=== PATIENT | female | born 1975 | race Caucasian/White ===

== ENCOUNTER 2020-06-02 14:57 | Outpatient (REF) | payer OTHER, SELFPAY ==
--- NOTE | 2020-06-02 | US_ITS ---
EXAMINATION: MM DIAGNOSTIC DIGITAL BREAST TOMOSYNTHESIS, BILATERAL US DIAGNOSTIC ULTRASOUND BREAST, RIGHT CLINICAL INFORMATION: 44-year-old with palpable area of concern anterior right breast. The lifetime risk of breast cancer based on the Tyrer-Cuzick Model is 7%. COMPARISON: Mammography: 11/18/2018, 11/04/2017, 12/31/2015; targeted right breast ultrasound 11/18/2018 TECHNIQUE: Digital breast tomosynthesis is performed in both the craniocaudal and mediolateral oblique views along with computer-aided detection (CAD). Synthesized 2D images are generated from the tomosynthesis. Ultrasound right breast is targeted to the area of clinical concern anterior upper breast. Grayscale imaging and color Doppler are performed without and with harmonics. FINDINGS: The breasts are almost entirely fatty (ACR BI-RADS breast composition Category a). There is a grouping of benign oil cysts at the site of palpable concern 11:00 to 12:00 anterior right breast, largest measuring approximately 0.8cm. Finding is similar to prior studies 2019. Neither breast shows interval mass or architectural abnormality or abnormal calcifications. There is no skin thickening or coarsening of the Srini's ligaments. The axilla are unremarkable. Ultrasound right breast demonstrates several benign cysts at site of palpable concern, the largest corresponding to the dominant oil cyst just beneath the skin 11:00 to 12:00 position 5 cm from nipple measuring approximately 0.7 x 0.7 cm. There is no solid mass or architectural abnormality. No skin thickening or edema tracking in soft tissue plane. Results are discussed with the patient at time of visit. IMPRESSION: 1. No mammographic evidence of malignancy. No significant change from prior study. 2. Incidental benign oil cysts at site of palpable concern, similar to prior imaging 2019. ASSESSMENT: BI-RADS 2: Benign RECOMMENDATION: Routine annual mammography screening. This patient's information was entered into a reminder system with a target due date for their next mammogram.
== END 2020-06-02 14:58 | disposition home or self-care (01) ==
LOC: HO.MAMMO 14:57
PROVIDERS: PCP Internal Medicine; Visit Provider Internal Medicine
DX: N63.11 Unspecified lump in the right breast, upper outer quadrant (principal)
CPT/HCPCS: 76642; 77062; 77066; 78013

== ENCOUNTER 2020-06-25 07:10 | Outpatient (REF) | payer OTHER, SELFPAY | END 2020-06-25 07:11 | disposition home or self-care (01) | LOC: HO.LAB 07:10 | PROVIDERS: Visit Provider Internal Medicine | DX: Z20.828 Contact with and (suspected) exposure to other viral communicable diseases (principal) | CPT/HCPCS: U0003 ==

== ENCOUNTER 2020-08-15 14:35 | Outpatient (REF) | payer OTHER, SELFPAY | END 2020-08-15 14:36 | disposition home or self-care (01) | LOC: HO.LAB 14:35 | PROVIDERS: Visit Provider Internal Medicine | DX: Z20.828 Contact with and (suspected) exposure to other viral communicable diseases (principal) | CPT/HCPCS: C9803; U0003 ==

== ENCOUNTER → 2020-10-17 12:40 | Outpatient (BNVA) | payer OTHER, SELFPAY | PROVIDERS: PCP Internal Medicine; Visit Provider Surgery ==

== ENCOUNTER 2020-10-17 15:22 | Outpatient (REF) | payer OTHER, SELFPAY ==
[2020-10-18 13:57] LABS: H Pylori Breath Test DETECTED (NOT DETECTED)
== END 2020-10-17 15:23 | disposition home or self-care (01) ==
LOC: HO.LNP 15:22
PROVIDERS: Visit Provider Surgery
DX: Z01.818 Encounter for other preprocedural examination (principal); E66.01 Morbid (severe) obesity due to excess calories; R40.0 Somnolence
CPT/HCPCS: 83013

== ENCOUNTER 2020-10-21 12:02 | Outpatient (REF) | payer OTHER, SELFPAY ==
[2020-10-21 13:14] LABS: MANUAL DIFF FLAG NO
[2020-10-21 13:19] LABS: Basophils Absolute Auto 0.1 X10*3/uL (0.0-0.2); Basophils Percent Auto 0.3 % (0-2); Eosinophils Absolute Auto 0.1 X10*3/uL (0.0-0.4); Eosinophils Percent Auto 0.5 % (0-4); Hematocrit 35.6 % (37-47); Hemoglobin 11.1 g/dl (12.0-16.0); Imm Gran Abs Auto 0.12 X10*3/uL (0.00-0.03); Imm Gran Pct Auto 0.8 % (0.0-0.4); Lymphocytes Percent Auto 25.3 % (20-40); Mean Corpuscular HGB Conc 31.2 g/dl (31.0-35.0); Mean Corpuscular Hemoglobin 24.8 pg (27.0-33.0); Mean Corpuscular Volume 79.6 fL (80-98); Mean Platelet Volume 9.8 fL (9.4-12.3); Monocytes Absolute Auto 0.8 X10*3/uL (0.1-1.2); Neutrophils Absolute Auto 10.7 X10*3/uL (2.0-8.3); Neutrophils Percent Auto 68.1 % (45-73); Platelet Count 328 X10*3/uL (160-400); Red Blood Count 4.47 X10*6/uL (4.20-5.50); Red Cell Distribution Width 15.6 % (11.0-16.0); White Blood Count 15.7 X10*3/uL (4.8-10.8)
[2020-10-21 13:37] LABS: Alanine Aminotransferase 21 U/L (0-31); Albumin Level 4.4 g/dL (3.5-5.0); Alkaline Phosphatase 71 U/L (39-117); Anion Gap 14 (12-20); Aspartate Amino Transferase 17 U/L (5-31); Bilirubin Total 0.5 mg/dL (0.0-1.0); Blood Urea Nitrogen 22 mg/dL (9-16); Calcium 9.2 mg/dL (8.4-10.2); Carbon Dioxide 29 mmol/L (22-29); Chloride 100 mmol/L (96-108); Cholesterol 221 mg/dL; Estimated Glomerular Filt Rate > 60; Glucose Fasting 97 mg/dL (60-99); HDL Cholesterol 67 mg/dL; Iron 49 mcg/dL (30-160); LDL Cholesterol Calculated 142 mg/dl; Percent Iron Saturation 13 % (15-50); Potassium 3.6 mmol/L (3.3-5.1); Sodium 139 mmol/L (135-145); Total Iron Binding Capacity 374 mcg/dL (228-428); Total Protein 7.6 g/dL (6.5-8.0); Triglycerides 60 mg/dL; Unsaturated Iron Binding 325 ug/dL
[2020-10-21 14:01] LABS: Thyroid Stimulating Hormone 2.31 uIU/mL (0.32-4.0); Vitamin D 25-OH Total 14.4 ng/mL (>30)
[2020-10-21 14:45] LABS: Vitamin B12 249 pg/mL (200-900)
[2020-10-24 18:41] LABS: Calcium (PTHI) 9.6 mg/dL (8.6-10.2); PTHI 37 pg/mL (14-64)
[2020-10-25 05:22] LABS: Zinc 58 mcg/dL (60-130)
[2020-10-26 10:12] LABS: Vitamin A 40 mcg/dL (38-98)
[2020-10-27 14:27] LABS: Vitamin B1 6 nmol/L (8-30)
== END 2020-10-21 12:03 | disposition home or self-care (01) ==
LOC: HO.LAB 12:02
PROVIDERS: PCP Internal Medicine; Visit Provider Surgery
DX: Z01.818 Encounter for other preprocedural examination (principal); A04.8 Other specified bacterial intestinal infections
CPT/HCPCS: 36415; 80053; 80061; 82306; 82607; 83540; 83970; 84425; 84443; 84590; 84630; 85025; 86140

== ENCOUNTER → 2020-10-31 14:32 | Outpatient (BNVA) | payer OTHER, SELFPAY | PROVIDERS: PCP Internal Medicine; Visit Provider Surgery ==

== ENCOUNTER → 2020-11-01 08:14 | Outpatient (REF) | payer OTHER, SELFPAY ==
--- NOTE | ~2020-11-01 | XR_ITS ---
EXAMINATION: XR CHEST CLINICAL INFORMATION: Shortness of breath. COMPARISON: Chest 11/14/2018 TECHNIQUE: 2 views of the chest were obtained. FINDINGS: No significant abnormality is noted involving the heart, lungs, mediastinum, bony thorax or soft tissues. XR/XR chest 2V IMPRESSION: Unremarkable chest examination.
--- NOTE | 2020-11-01 08:29 | ECG_ITS ---
Test Reason : SOB Blood Pressure : / mmHG Vent. Rate : 083 BPM Atrial Rate : 083 BPM P-R Int : 154 ms QRS Dur : 098 ms QT Int : 392 ms P-R-T Axes : 070 020 050 degrees QTc Int : 460 ms Normal sinus rhythm Normal ECG When compared with ECG of 08-NOV-2012 14:55, No significant change was found Referred By: Adri Aquino Electronically Signed By:Kel Noel
== END ==
LOC: HO.CARD 08:14
PROVIDERS: PCP Internal Medicine; Visit Provider Surgery
DX: R06.02 Shortness of breath (principal)
CPT/HCPCS: 71046; 93005

== ENCOUNTER → 2020-11-14 11:16 | Outpatient (BNVA) | payer OTHER, SELFPAY | PROVIDERS: PCP Internal Medicine; Visit Provider Dietitian, Registered ==

== ENCOUNTER → 2020-12-15 08:09 | Outpatient (BNVA) | payer OTHER, SELFPAY | PROVIDERS: PCP Internal Medicine; Visit Provider Dietitian, Registered | DX: E66.01 Morbid (severe) obesity due to excess calories (principal); Z68.43 Body mass index [BMI] 50.0-59.9, adult | CPT/HCPCS: 97803 ==

== ENCOUNTER 2020-12-20 15:05 | Outpatient (REF) | payer OTHER, SELFPAY ==
[2020-12-21 14:32] LABS: H Pylori Breath Test DETECTED (NOT DETECTED)
== END 2020-12-20 15:06 | disposition home or self-care (01) ==
LOC: HO.LNP 15:05
PROVIDERS: PCP Internal Medicine; Visit Provider Surgery
DX: E66.01 Morbid (severe) obesity due to excess calories (principal); Z71.3 Dietary counseling and surveillance; Z11.0 Encounter for screening for intestinal infectious diseases; Z79.899 Other long term (current) drug therapy; Z68.43 Body mass index [BMI] 50.0-59.9, adult
CPT/HCPCS: 83013

== ENCOUNTER → 2021-01-06 08:14 | Outpatient (BNVA) | payer OTHER, SELFPAY | PROVIDERS: PCP Internal Medicine; Visit Provider Dietitian, Registered | DX: E66.01 Morbid (severe) obesity due to excess calories (principal); Z68.43 Body mass index [BMI] 50.0-59.9, adult | CPT/HCPCS: 97803 ==

== ENCOUNTER → 2021-02-06 08:09 | Outpatient (BNVA) | payer OTHER, SELFPAY | PROVIDERS: PCP Internal Medicine; Visit Provider Dietitian, Registered ==

== ENCOUNTER → 2021-02-08 16:28 | Outpatient (BNVA) | payer OTHER, SELFPAY | PROVIDERS: PCP Internal Medicine; Visit Provider Physician Assistant ==

== ENCOUNTER → 2021-03-02 15:13 | Outpatient (BNVA) | payer OTHER, SELFPAY | PROVIDERS: PCP Internal Medicine; Visit Provider Surgery ==

== ENCOUNTER 2021-12-11 15:33 | Outpatient (REF) | payer OTHER, SELFPAY ==
[2021-12-11 15:53] LABS: MANUAL DIFF FLAG NO
[2021-12-11 16:42] LABS: Basophils Absolute Auto 0.1 X10*3/uL (0.0-0.2); Basophils Percent Auto 0.5 % (0-2); Eosinophils Absolute Auto 0.3 X10*3/uL (0.0-0.4); Hemoglobin 11.6 g/dl (12.0-16.0); Imm Gran Abs Auto 0.03 X10*3/uL (0.00-0.03); Imm Gran Pct Auto 0.3 % (0.0-0.4); Lymphocytes Absolute Auto 3.5 X10*3/uL (1.2-4.9); Lymphocytes Percent Auto 36.7 % (20-40); Mean Corpuscular HGB Conc 31.4 g/dl (31.0-35.0); Mean Corpuscular Hemoglobin 25.1 pg (27.0-33.0); Mean Corpuscular Volume 79.9 fL (80.0-98.0); Mean Platelet Volume 9.7 fL (9.4-12.3); Monocytes Absolute Auto 0.5 X10*3/uL (0.1-1.2); Monocytes Percent Auto 4.9 % (2-11); Neutrophils Absolute Auto 5.2 x10*3/uL (2.0-8.3); Neutrophils Percent Auto 54.6 % (45-73); Platelet Count 294 X10*3/uL (160-400); Red Blood Count 4.63 X10*6/uL (4.20-5.50); Red Cell Distribution Width 15.7 % (11.0-16.0); White Blood Count 9.6 X10*3/uL (4.8-10.8)
[2021-12-11 17:20] LABS: Alanine Aminotransferase 18 U/L (0-31); Alkaline Phosphatase 65 U/L (39-117); Anion Gap 12 (12-20); Aspartate Amino Transferase 18 U/L (5-31); Bilirubin Total 0.5 mg/dL (0.0-1.0); Blood Urea Nitrogen 11 mg/dL (9-16); Calcium 9.4 mg/dL (8.4-10.2); Carbon Dioxide 28 mmol/L (22-29); Chloride 102 mmol/L (96-108); Cholesterol 200 mg/dL; Estimated Glomerular Filt Rate > 60; Glucose Random 92 mg/dL (60-115); HDL Cholesterol 48 mg/dL; LDL Cholesterol Calculated 137 mg/dl; Potassium 3.9 mmol/L (3.3-5.1); Sodium 138 mmol/L (135-145); Total Protein 7.1 g/dL (6.5-8.0); Triglycerides 76 mg/dL
== END 2021-12-11 15:34 | disposition home or self-care (01) ==
LOC: HO.LAB 15:33
PROVIDERS: PCP Internal Medicine; Visit Provider Internal Medicine
DX: Z00.00 Encounter for general adult medical examination without abnormal findings (principal); E66.8 Other obesity; I10 Essential (primary) hypertension; J45.909 Unspecified asthma, uncomplicated
CPT/HCPCS: 36415; 80053; 80061; 85025

== ENCOUNTER 2022-06-23 10:48 | Outpatient (REF) | payer OTHER, SELFPAY ==
--- NOTE | ~2022-06-23 | MM_ITS ---
EXAMINATION: MM SCREENING DIGITAL BREAST TOMOSYNTHESIS, BILATERAL CLINICAL INFORMATION: Screening. Asymptomatic. The lifetime risk of breast cancer based on the Tyrer-Cuzick Model is 8%. COMPARISON: Mammography: 06/02/2020, 11/18/2018, 11/04/2017; right breast ultrasound 06/02/2020. TECHNIQUE: Digital breast tomosynthesis is performed in both the craniocaudal and mediolateral oblique views along with computer-aided detection (CAD). Synthesized 2D images are generated from the tomosynthesis. FINDINGS: The breasts are almost entirely fatty (ACR BI-RADS breast composition Category a). Parenchymal pattern is similar to prior studies. There is no developing density or architectural abnormality. There is no significant mass or abnormal calcifications. Incidental small oil cysts are again noted anterior upper right breast. The axilla and skin contours are unremarkable. No significant changes. MM/MM tomosynthesis screening BI IMPRESSION: No mammographic evidence of malignancy. ASSESSMENT: BI-RADS 2: Benign RECOMMENDATION: Routine annual mammography screening. This patient's information was entered into a reminder system with a target due date for their next mammogram.
== END 2022-06-23 10:49 | disposition home or self-care (01) ==
LOC: HO.MAMMO 10:48
PROVIDERS: Visit Provider Internal Medicine
DX: Z12.31 Encounter for screening mammogram for malignant neoplasm of breast (principal)
CPT/HCPCS: 77063; 77067

== ENCOUNTER 2022-06-30 10:31 | Outpatient (REF) | payer OTHER, SELFPAY ==
[2022-06-30 10:53] LABS: MANUAL DIFF FLAG NO
[2022-06-30 11:19] LABS: Basophils Absolute Auto 0.1 X10*3/uL (0.0-0.2); Basophils Percent Auto 0.3 % (0-2); Eosinophils Absolute Auto 0.1 X10*3/uL (0.0-0.4); Eosinophils Percent Auto 0.6 % (0-4); Hematocrit 35.3 % (37.0-47.0); Hemoglobin 10.8 g/dl (12.0-16.0); Imm Gran Pct Auto 1.3 % (0.0-0.4); Lymphocytes Absolute Auto 4.9 X10*3/uL (1.2-4.9); Lymphocytes Percent Auto 30.6 % (20-40); Mean Corpuscular HGB Conc 30.6 g/dl (31.0-35.0); Mean Corpuscular Hemoglobin 23.4 pg (27.0-33.0); Mean Corpuscular Volume 76.6 fL (80.0-98.0); Mean Platelet Volume 9.7 fL (9.4-12.3); Neutrophils Absolute Auto 9.8 x10*3/uL (2.0-8.3); Neutrophils Percent Auto 61.2 % (45-73); Platelet Count 323 X10*3/uL (160-400); Red Blood Count 4.61 X10*6/uL (4.20-5.50); Red Cell Distribution Width 15.9 % (11.0-16.0)
[2022-06-30 11:23] LABS: Estimated Average Glucose 128 mg/dL; Hemoglobin A1c % 6.1 %
[2022-06-30 11:32] LABS: Alanine Aminotransferase 21 U/L (0-31); Albumin Level 4.3 g/dL (3.5-5.0); Alkaline Phosphatase 74 U/L (39-117); Anion Gap 16 (12-20); Aspartate Amino Transferase 14 U/L (5-31); Bilirubin Total 0.2 mg/dL (0.0-1.0); Blood Urea Nitrogen 14 mg/dL (9-16); Calcium 9.7 mg/dL (8.4-10.2); Carbon Dioxide 29 mmol/L (22-29); Chloride 100 mmol/L (96-108); Cholesterol 190 mg/dL; Estimated Glomerular Filt Rate > 60; Glucose Random 92 mg/dL (60-115); HDL Cholesterol 61 mg/dL; LDL Cholesterol Calculated 119 mg/dl; Potassium 4.1 mmol/L (3.3-5.1); Sodium 141 mmol/L (135-145); Total Protein 7.6 g/dL (6.5-8.0); Triglycerides 50 mg/dL
== END 2022-06-30 10:32 | disposition home or self-care (01) ==
LOC: HO.LAB 10:31
PROVIDERS: PCP Internal Medicine; Visit Provider Internal Medicine
DX: Z00.00 Encounter for general adult medical examination without abnormal findings (principal); E78.00 Pure hypercholesterolemia, unspecified; G47.33 Obstructive sleep apnea (adult) (pediatric); I10 Essential (primary) hypertension; J45.20 Mild intermittent asthma, uncomplicated; N93.8 Other specified abnormal uterine and vaginal bleeding
CPT/HCPCS: 36415; 80053; 80061; 83036; 84443; 85025

== ENCOUNTER → 2022-12-11 13:38 | Outpatient (BNVA) | payer OTHER, SELFPAY | PROVIDERS: PCP Internal Medicine; Visit Provider Advanced Practice Midwife | DX: Z13.89 Encounter for screening for other disorder (principal) ==

== ENCOUNTER 2022-12-11 17:40 | Outpatient (REF) | payer OTHER, SELFPAY | END 2022-12-11 17:41 | disposition home or self-care (01) | LOC: HO.LNP 17:40 | PROVIDERS: Visit Provider Advanced Practice Midwife | DX: L02.32 Furuncle of buttock (principal) | CPT/HCPCS: 87255 ==

== ENCOUNTER → 2023-04-03 15:47 | Outpatient (BNVA) | payer OTHER, SELFPAY | PROVIDERS: PCP Internal Medicine; Visit Provider Physician Assistant Surgical ==

== ENCOUNTER 2023-05-22 12:54 | Outpatient (AMB) | payer OTHER, SELFPAY ==
--- NOTE | 2023-05-22 13:02 | MHC.OFFVISWM ---
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 She was in the program from 09/2020-02/2021. She had lost 10.6 pounds. She left the program as she had multiple NS due to parking issues. Her goal is to lose weight and achieve a healthy lifestyle as well as to improve, if not resolve, obesity related medical conditions, including htn. She reports first being concerned about her weight 6 years ago, highest weight to date was 316. Current weight is 316.4 pounds with a BMI of 59.8. She has tried multiple methods of weight loss including fad diets and previous SWL clinic without permanent results. She lives with her 2 kids. 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 She wakes at:?7 am, and goes to bed at?11 pm. Dinner is at 6 pm. Breakfast: coffee w 1 cream, 2 sugars AM snack: skip Lunch: fast food, sandwich or salad PM snack: skip, cheese and crackers Dinner: veg, chicken, rice After dinner: cheese and crackers Other snacks: chips, chocolate chip cookies Liquids: 128 oz water, no soda, no juice Alcohol/marijuana/tobacco intake: 5-6 drinks per day on weekends, no cannabis, no tobacco Exercise: none, no gym membership, wants treadmill at home [facility] Medical History (Updated 05/22/23 @ 14:13 by JAMES Lugo) HTN (hypertension) Asthma Psoriasis Atopic eczema Surgical History History of tubal ligation Hx of section Family History Father Asthma Cancer Mother Hypertension Sister Hypertension Brother No problems noted. Son No problems noted. Son ADHD Autism Daughter Asthma Eczema Social History (Updated 05/22/23 @ 13:12 by Ameena Awan CMA) Alcohol intake: current Alcohol intake frequency: a few times a month Alcohol type: wine Patient Tobacco Use Status: Former Tobacco user Female Reproductive History Menstrual Age of Menarche: 13 Review of Systems Const All systems reviewed & are unremarkable except as noted in HPI and below Physical Exam Vital Signs: Last Vital Signs Temp 98.2 F 05/22/23 13:12 Pulse 100 05/22/23 13:12 BP 140/64 H 05/22/23 13:12 Pulse Ox 95 05/22/23 13:12 Oxygen Delivery Method Room Air 05/22/23 13:12 BMI result Body Mass Index 59.8 Const General: cooperative, healthy appearing and no acute distress Orientation/consciousness: patient oriented x3 HEENT Head: Yes normal to inspection Ears: hearing grossly normal bilaterally General nose exam: Normal external nose present Face and sinus: Yes normal facial exam Eyes General: appearance normal, both eyes and all related structures Resp Effort & Inspection: normal respiratory effort Auscultation: clear to auscultation bilaterally Cardio Rate: regular rate Rhythm: regular rhythm Heart sounds: S1 normal heart sound present and S2 normal heart sound present GI Inspection: Yes normal to inspection, No distended and Yes obesity Palpation (GI): Soft to palpation, nontender and no guarding Auscultation: normal bowel sounds Skin General skin exam: no rashes or lesions noted Neuro General: patient oriented x3 Extrem General: No edema Psych Appearance: grossly normal Mental Status: mental status grossly normal Speech and movement: Normal speech and movement present Affect: normal affect Attitude: cooperative Assessment & Plan Assessment & Plan (1) Morbid obesity: Code(s): E66.01 - Morbid (severe) obesity due to excess calories Plan: This is a?47 yo female who will start our SWL program to prepare for bariatric surgery.? Blood work, h pylori , CXR, ECG, Abd US and UGI have been ordered. She is being scheduled for RD and BH initial consultations. She will start SWL classes and watch the first three videos before her next appointment. ? Adequate sleep of 7-8 hours per night discussed, awakening at 7 am and going to bed without your phone at 11 pm ? Purchase body composition analyzer scale (Orly cohen or Bernardo recommended) and check weight weekly. The best time to do this is first thing in the morning after going to the bathroom. 1. Nutritional counseling: Be sure to careful read the number of scoops per shake Start with 3 Miregote Rebuild shakes ([facility] [employer], [employer], [employer]), First shake (1 and 1/2 scoop in 12 oz fairlife milk) at 8am-10am, Second shake (1 scoop in 8 oz fairlife milk) at 11am-1pm Third shake (1 scoop in 8 oz fairlife milk) at 2pm-4pm Dinner at 6-630pm (11 forks of protein and 11 forks of salad/vegetables). Meal to include lean meat (beef, fish, pork, turkey, chicken), cooked vegetables or a salad with olive oil and/or fruits (berries, pears, apples, kiwi). Avoid salt, breads, potatoes, rice, pasta, desserts. 1 protein bar ([employer] Protein bars at [facility] [employer], [employer], [employer]) at 8pm-10pm. Try to drink 64 oz of water daily and avoid soda and juices. ?2. Each shake would be drunk slowly, like coffee in a period of 2 hours. ?3. Cut each bar in 4 pieces and eat each piece in 30 min ?to make each bar last 2 hours. ?4. I emphasized the importance of measuring accurately the food portion and measure it carefully when serving the food on the plate ?5. The meal portions include 11 full-size forks of meat and 11 full-size forks of salad. You always eat the meat portion but you can replace up to half of the forks of salad/vegetables with rice, potatoes or pasta, or a fruit ?if you like. The less you do it the better weight loss will be. ?6. One full-size fork is what can be scooped on the fork without falling aside and not what can be bit with the fork. Use regular forks like those you find in a typical restaurant. ?7.? Please send me weight measurements as soon as possible and then once a week. Always include your diet and exercise plan. Alternatively come weekly at the office for weight checks and send me the measurements. ?8. Exercise counseling: Begin by watching a stretching for beginners video. Start slowly and begin to stretch your muscles. You should do this before and after each exercise session to prevent injury. Please consider joining [facility] gym near your home. If you do want to join, let me know and I will provide you a paper for discount to membership. Ask the senior software manager or one of the trainers how to use the machines if you are unfamiliar with them. Start elliptical with a resistance of 2. Increase resistance by 1 every 3 min to your most comfortable resistance with a max resistance of 8. Reduce the resistance by 1 every 3 minutes back down to 2 and repeat cycles for 300 calories. Alternatively, start treadmill with a speed of 3.0 and incline of 0, increasing incline by 1 every 3 minutes to the highest comfortable level (max 6 for now) then decrease in the same fashion. Repeat process to a goal of 300 calories. Goal of 2000 calories burned or more weekly. You may also consider use of the stationary bike. The easiest would be to chose the fat-burn or interval training program on the machine and do this until you reach the 300 calorie goal. Alternatively, you can manually adjust the resistance in a similar fashion as mentioned above, (resistance of 2-8 with a goal speed of 12 mph). Tracking calories is essential. 9. Alternatively start walking outside daily, tracking calories with a goal of 300 calories per day, daily. You can download the gabby [employer] which can track your time, distance and calories while walking outside. You press start in the gabby when you start and then stop when you are finished. If you are able to get the treadmill from your mary, please follow the directions as above. 10.? It is important to text me weekly your weight and if you are having any problems with the plans. 11. Please get labs, EKG and chest X-Ray within 1 week. 12. Please follow the diet plan exactly, without any change. If you do not like something about the plan or you feel hungry, you need to communicate with me so I can help you revise the plan. You should not change the plan yourself. Text me at [phone] 13. Goal is to lose at least 12 pounds in the first month 14. Goal is to lose 10% of your weight before surgery, which is about 31 lbs. Ultimate weight goal: 285 lbs before surgery Patient is morbidly obese and is not considered stable at this time.?I spent a total of 70 minutes reviewing/updating records, examining the patient and counseling the patient on weight management as detailed above. Orders: Orders Insulin Today E51.9 - Thiamine deficiency, unspecified, E55.9 - Vitamin D deficiency, unspecified, E60 - Dietary zinc deficiency, E66.01 - Morbid (severe) obesity due to excess calories, I10 - Essential (primary) hypertension IRON PROFILE Today E51.9 - Thiamine deficiency, unspecified, E55.9 - Vitamin D deficiency, unspecified, E60 - Dietary zinc deficiency, E66.01 - Morbid (severe) obesity due to excess calories, I10 - Essential (primary) hypertension Vitamin B1 Today E51.9 - Thiamine deficiency, unspecified, E55.9 - Vitamin D deficiency, unspecified, E60 - Dietary zinc deficiency, E66.01 - Morbid (severe) obesity due to excess calories, I10 - Essential (primary) hypertension PTHI Today E51.9 - Thiamine deficiency, unspecified, E55.9 - Vitamin D deficiency, unspecified, E60 - Dietary zinc deficiency, E66.01 - Morbid (severe) obesity due to excess calories, I10 - Essential (primary) hypertension TSH reflex Free T4 Today E51.9 - Thiamine deficiency, unspecified, E55.9 - Vitamin D deficiency, unspecified, E60 - Dietary zinc deficiency, E66.01 - Morbid (severe) obesity due to excess calories, I10 - Essential (primary) hypertension Vitamin D 25-OH Total Today E51.9 - Thiamine deficiency, unspecified, E55.9 - Vitamin D deficiency, unspecified, E60 - Dietary zinc deficiency, E66.01 - Morbid (severe) obesity due to excess calories, I10 - Essential (primary) hypertension FL upper GI w air Today E51.9 - Thiamine deficiency, unspecified, E55.9 - Vitamin D deficiency, unspecified, E60 - Dietary zinc deficiency, E66.01 - Morbid (severe) obesity due to excess calories, I10 - Essential (primary) hypertension Lipid Panel Today E51.9 - Thiamine deficiency, unspecified, E55.9 - Vitamin D deficiency, unspecified, E60 - Dietary zinc deficiency, E66.01 - Morbid (severe) obesity due to excess calories, I10 - Essential (primary) hypertension Complete Blood Count Auto Diff Today E51.9 - Thiamine deficiency, unspecified, E55.9 - Vitamin D deficiency, unspecified, E60 - Dietary zinc deficiency, E66.01 - Morbid (severe) obesity due to excess calories, I10 - Essential (primary) hypertension Vitamin B12 and Folate Today E51.9 - Thiamine deficiency, unspecified, E55.9 - Vitamin D deficiency, unspecified, E60 - Dietary zinc deficiency, E66.01 - Morbid (severe) obesity due to excess calories, I10 - Essential (primary) hypertension Zinc Today E51.9 - Thiamine deficiency, unspecified, E55.9 - Vitamin D deficiency, unspecified, E60 - Dietary zinc deficiency, E66.01 - Morbid (severe) obesity due to excess calories, I10 - Essential (primary) hypertension Comprehensive Met. Panel Today E51.9 - Thiamine deficiency, unspecified, E55.9 - Vitamin D deficiency, unspecified, E60 - Dietary zinc deficiency, E66.01 - Morbid (severe) obesity due to excess calories, I10 - Essential (primary) hypertension Vitamin A Today E51.9 - Thiamine deficiency, unspecified, E55.9 - Vitamin D deficiency, unspecified, E60 - Dietary zinc deficiency, E66.01 - Morbid (severe) obesity due to excess calories, I10 - Essential (primary) hypertension C Reactive Protein Today E51.9 - Thiamine deficiency, unspecified, E55.9 - Vitamin D deficiency, unspecified, E60 - Dietary zinc deficiency, E66.01 - Morbid (severe) obesity due to excess calories, I10 - Essential (primary) hypertension Ferritin Today E51.9 - Thiamine deficiency, unspecified, E55.9 - Vitamin D deficiency, unspecified, E60 - Dietary zinc deficiency, E66.01 - Morbid (severe) obesity due to excess calories, I10 - Essential (primary) hypertension H Pylori Breath Test Today E51.9 - Thiamine deficiency, unspecified, E55.9 - Vitamin D deficiency, unspecified, E60 - Dietary zinc deficiency, E66.01 - Morbid (severe) obesity due to excess calories, I10 - Essential (primary) hypertension Hemoglobin A1c Today E51.9 - Thiamine deficiency, unspecified, E55.9 - Vitamin D deficiency, unspecified, E60 - Dietary zinc deficiency, E66.01 - Morbid (severe) obesity due to excess calories, I10 - Essential (primary) hypertension US abdomen comp w elastography Today E51.9 - Thiamine deficiency, unspecified, E55.9 - Vitamin D deficiency, unspecified, E60 - Dietary zinc deficiency, E66.01 - Morbid (severe) obesity due to excess calories, I10 - Essential (primary) hypertension XR chest 2V Today E51.9 - Thiamine deficiency, unspecified, E55.9 - Vitamin D deficiency, unspecified, E60 - Dietary zinc deficiency, E66.01 - Morbid (severe) obesity due to excess calories, I10 - Essential (primary) hypertension ECG 12 lead EKG Today E51.9 - Thiamine deficiency, unspecified, E55.9 - Vitamin D deficiency, unspecified, E60 - Dietary zinc deficiency, E66.01 - Morbid (severe) obesity due to excess calories, I10 - Essential (primary) hypertension Referrals Behavioral Health Referral E51.9 - Thiamine deficiency, unspecified, E55.9 - Vitamin D deficiency, unspecified, E60 - Dietary zinc deficiency, E66.01 - Morbid (severe) obesity due to excess calories, I10 - Essential (primary) hypertension Nutrition/Dietitian Referral E51.9 - Thiamine deficiency, unspecified, E55.9 - Vitamin D deficiency, unspecified, E60 - Dietary zinc deficiency, E66.01 - Morbid (severe) obesity due to excess calories, I10 - Essential (primary) hypertension Coding Level of Care Code Est Pt Level 5 (87708) Diagnoses Morbid obesity E66.01 Time Spent (min) 70
[2023-05-22 13:12] VITALS: BP 140/64; PULSE 100; TEMP 36.8; O2SAT 95; BMI 59.8
== END 2023-05-22 14:47 | disposition home or self-care (01) ==
PROVIDERS: PCP Internal Medicine; Visit Provider Physician Assistant Surgical
DX: E66.01 Morbid (severe) obesity due to excess calories (principal); Z68.43 Body mass index [BMI] 50.0-59.9, adult
CPT/HCPCS: 99215

== ENCOUNTER → 2023-05-22 12:54 | Outpatient (BNVA) | payer OTHER, SELFPAY | PROVIDERS: PCP Internal Medicine; Visit Provider Physician Assistant Surgical ==

== ENCOUNTER 2023-06-10 15:30 | Outpatient (AMB) | payer OTHER, SELFPAY ==
--- NOTE | 2023-06-10 14:59 | A.OFFVIS_ITS ---
Intake VS Expanded 06/10/23 15:00 Height 5 ft 1 in Weight 313 lb 8 oz BMI 59.2 Intake Visit Reasons: VIDEO F/U SWL Assistant Athletic Trainer Required: No Allergies shrimp Allergy (Severe, Verified 12/11/22 13:53) HIVES Medication List - Last Reconciled 06/10/23 by JAMES Lugo albuterol sulfate 90 mcg/actuation 2 puffs inhalation Q6H PRN clobetasol 0.05% 1 appl topical BID lisinopril-hydrochlorothiazide 20-25 mg tabs PO montelukast (Singulair) 10 mg PO DAILY HPI HPI Comments History of Present Illness Details The patient is a pleasant 47 year old female who returns to the clinic for pre-operative surgical weight loss management. They were last seen in the office on 05/22/23, recorded weight at that time was 316.4 pounds, with a BMI of 59.8. Today's weight is 313.5 pounds and BMI is 59.2. There has been a weight loss of 2.9 pounds since initiating the surgical weight loss program on 05/22/23 with a total body weight loss of 0.9 %. Pre op work up completed as follows: SWL classes:? [] BH appts: 06/17/23 ? ? RD appts: 06/25/23 Labs: not yet done H. pylori: not yet done CXR: not yet done EKG: not yet done ABD U/S: 06/24/23 UGI: 07/30/23 The patient reports she has not been following the plans. She states she has a cruise vacation coming up and she intends to drink to excess, has been having personal issues and has been working a lot. She has not been doing the shakes as directed. She is forgetful. She has skipped shake and is starving at dinner. She has been drinking pure protein shakes, 2.5 scoops in the first shake and 1.5 scoops in 2nd and 3rd as this is what Dr Aquino told her to do. Reports that she is financially strapped with her two kids and grandkids. She did not communicate her change in meal plan. 11 forks protein and 11 forks veg, no bar at night. Current meal plan includes: 3 [employer] Rebuild shakes First shake (1 and 1/2 scoop in 12 oz fairlife milk) at 8am-10am, Second shake (1 scoop in 8 oz fairlife milk) at 11am-1pm Third shake (1 scoop in 8 oz fairlife milk) at 2pm-4pm Dinner at 6-630pm (11 forks of protein and 11 forks of salad/vegetables). 1 protein bar ([employer] bars) a t 8pm-10pm. Drinking 96 oz of water Current exercise plan includes: none PFSH Medical History (Updated 05/22/23 @ 14:13 by JAMES Lugo) HTN (hypertension) Asthma Psoriasis Atopic eczema Surgical History History of tubal ligation Hx of section Family History Father Asthma Cancer Mother Hypertension Sister Hypertension Brother No problems noted. Son No problems noted. Son ADHD Autism Daughter Asthma Eczema Social History (Updated 05/22/23 @ 13:12 by Ameena Awan MAGNAFLUX OPERATOR) Alcohol intake: current Alcohol intake frequency: a few times a month Alcohol type: wine Patient Tobacco Use Status: Former Tobacco user Female Reproductive History Menstrual Age of Menarche: 13 Assessment & Plan Assessment & Plan (1) Morbid obesity: Code(s): E66.01 - Morbid (severe) obesity due to excess calories Plan: Patient is not following the plans at all. She has not been communicating and change the plans on her own, causing a gross ever in her protein intake. This was discussed with her at length and she states that she will try to do better next time. We discussed that this may not be the appropriate time for her to be in our program given her reported financial constraints and inability to follow the plans. She states that she will try during this upcoming months to do bett er although if she is still not able to follow the plans, she will withdraw from the program. Discussed re reading the e-mail that I sent her and following the plans exactly. Return to clinic in 1 month. Telehealth Telehealth Location of provider rendering services: practice address Location of patient: address on file Patient Identification confirmed using: Name, : Yes Telehealth method: video Patient verbally consented to treatment: Yes Patient verbally consented to billing insurance company: Yes Patient informed of any privacy concerns related to visit: Yes Minutes spent on Phone/Video with Pt.: 25 Coding Level of Care Code Tele Est Pt Level 3 (81443) Diagnoses Morbid obesity E66.01 Time Spent (min) 25
[2023-06-10 15:00] VITALS: BMI 59.2
== END 2023-06-10 15:34 | disposition home or self-care (01) ==
LOC: HO.HBS 15:30
PROVIDERS: PCP Internal Medicine; Visit Provider Physician Assistant Surgical
DX: E66.01 Morbid (severe) obesity due to excess calories (principal); Z68.43 Body mass index [BMI] 50.0-59.9, adult
CPT/HCPCS: 99213

== ENCOUNTER → 2023-06-10 15:30 | Outpatient (BNVA) | payer OTHER, SELFPAY | PROVIDERS: PCP Internal Medicine; Visit Provider Physician Assistant Surgical ==

== ENCOUNTER 2023-06-17 08:16 | Outpatient (REF) | payer OTHER, SELFPAY ==
--- NOTE | ~2023-06-17 | XR_ITS ---
EXAMINATION: XR CHEST 2 VIEWS CLINICAL INFORMATION: Indications seen. COMPARISON: Chest radiograph dated 11/01/2020. TECHNIQUE: Frontal and lateral views of the chest were obtained. FINDINGS: The heart, great vessels, pulmonary vasculature and mediastinum are normal. The lungs show no focal infiltrate, effusion or pneumothorax. There is no acute osseous abnormality. A metallic density overlapping the right chin region may represent jewelry. XR/XR chest 2V IMPRESSION: No active cardiopulmonary disease.
--- NOTE | 2023-06-17 08:28 | ECG_ITS ---
Test Reason : thiamine def Blood Pressure : / mmHG Vent. Rate : 090 BPM Atrial Rate : 090 BPM P-R Int : 160 ms QRS Dur : 100 ms QT Int : 382 ms P-R-T Axes : 073 -05 066 degrees QTc Int : 467 ms Normal sinus rhythm Normal ECG When compared with ECG of 01-NOV-2020 08:35, No significant change was found Referred By: Kwadwo Khan Electronically Signed By:NIKKO FONSECA MD
[2023-06-17 08:48] LABS: MANUAL DIFF FLAG NO
[2023-06-17 09:41] LABS: Basophils Absolute Auto 0.1 X10*3/uL (0.0-0.2); Basophils Percent Auto 0.6 % (0-2); Eosinophils Absolute Auto 0.3 X10*3/uL (0.0-0.4); Eosinophils Percent Auto 3.6 % (0-4); Hematocrit 36.3 % (37.0-47.0); Hemoglobin 10.8 g/dl (12.0-16.0); Imm Gran Abs Auto 0.02 X10*3/uL (0.00-0.03); Imm Gran Pct Auto 0.2 % (0.0-0.4); Lymphocytes Absolute Auto 3.3 X10*3/uL (1.2-4.9); Lymphocytes Percent Auto 38.8 % (20-40); Mean Corpuscular HGB Conc 29.8 g/dl (31.0-35.0); Mean Corpuscular Hemoglobin 23.6 pg (27.0-33.0); Mean Corpuscular Volume 79.4 fL (80.0-98.0); Mean Platelet Volume 9.9 fL (9.4-12.3); Monocytes Absolute Auto 0.6 X10*3/uL (0.1-1.2); Neutrophils Absolute Auto 4.3 x10*3/uL (2.0-8.3); Neutrophils Percent Auto 49.8 % (45-73); Platelet Count 236 X10*3/uL (160-400); Red Blood Count 4.57 X10*6/uL (4.20-5.50); Red Cell Distribution Width 16.8 % (11.0-16.0); White Blood Count 8.6 X10*3/uL (4.8-10.8)
[2023-06-17 09:42] LABS: Basophils Absolute Auto 0.1 X10*3/uL (0.0-0.2); Basophils Percent Auto 0.7 % (0-2); Eosinophils Absolute Auto 0.3 X10*3/uL (0.0-0.4); Eosinophils Percent Auto 3.8 % (0-4); Hematocrit 35.8 % (37.0-47.0); Hemoglobin 10.7 g/dl (12.0-16.0); Imm Gran Abs Auto 0.02 X10*3/uL (0.00-0.03); Imm Gran Pct Auto 0.3 % (0.0-0.4); Lymphocytes Absolute Auto 2.8 X10*3/uL (1.2-4.9); Lymphocytes Percent Auto 37.1 % (20-40); Mean Corpuscular HGB Conc 29.9 g/dl (31.0-35.0); Mean Corpuscular Hemoglobin 23.5 pg (27.0-33.0); Mean Corpuscular Volume 78.7 fL (80.0-98.0); Mean Platelet Volume 9.8 fL (9.4-12.3); Monocytes Absolute Auto 0.5 X10*3/uL (0.1-1.2); Monocytes Percent Auto 6.3 % (2-11); Neutrophils Absolute Auto 3.9 x10*3/uL (2.0-8.3); Neutrophils Percent Auto 51.8 % (45-73); Platelet Count 230 X10*3/uL (160-400); Red Blood Count 4.55 X10*6/uL (4.20-5.50); Red Cell Distribution Width 16.7 % (11.0-16.0); White Blood Count 7.4 X10*3/uL (4.8-10.8)
[2023-06-17 09:49] LABS: Estimated Average Glucose 134 mg/dL; Hemoglobin A1c % 6.3 % (<6.0)
[2023-06-17 09:51] LABS: Estimated Average Glucose 137 mg/dL; Hemoglobin A1c % 6.4 % (<6.0)
[2023-06-17 10:30] LABS: Alanine Aminotransferase 18 U/L (0-31); Albumin Level 3.9 g/dL (3.5-5.0); Alkaline Phosphatase 73 U/L (39-117); Anion Gap 14 (12-20); Aspartate Amino Transferase 17 U/L (5-31); Bilirubin Total 0.2 mg/dL (0.0-1.0); Blood Urea Nitrogen 11 mg/dL (9-16); Calcium 9.5 mg/dL (8.4-10.2); Carbon Dioxide 31 mmol/L (22-29); Chloride 103 mmol/L (96-108); Estimated Glomerular Filt Rate > 60; Glucose Random 129 mg/dL (60-115); Potassium 3.8 mmol/L (3.3-5.1); Sodium 144 mmol/L (135-145); Total Protein 7.2 g/dL (6.5-8.0)
[2023-06-17 10:36] LABS: Alanine Aminotransferase 18 U/L (0-31); Albumin Level 3.9 g/dL (3.5-5.0); Alkaline Phosphatase 72 U/L (39-117); Anion Gap 13 (12-20); Aspartate Amino Transferase 17 U/L (5-31); Bilirubin Total 0.2 mg/dL (0.0-1.0); Blood Urea Nitrogen 11 mg/dL (9-16); C Reactive Protein 1.41 mg/dL (< or = 0.50); Calcium 9.4 mg/dL (8.4-10.2); Carbon Dioxide 30 mmol/L (22-29); Chloride 104 mmol/L (96-108); Cholesterol 185 mg/dL (<200); Estimated Glomerular Filt Rate > 60; Glucose Random 129 mg/dL (60-115); HDL Cholesterol 53 mg/dL (>40); Iron 33 mcg/dL (30-160); LDL Cholesterol Calculated 119 mg/dL (<100); Percent Iron Saturation 10 % (15-50); Potassium 3.7 mmol/L (3.3-5.1); Sodium 143 mmol/L (135-145); Total Iron Binding Capacity 315 mcg/dL (228-428); Total Protein 7.2 g/dL (6.5-8.0); Triglycerides 67 mg/dL (<150); Unsaturated Iron Binding 282 ug/dL
[2023-06-17 10:42] LABS: Ferritin 21 ng/mL (10-250); Insulin 33 uU/mL (2-29); TSH reflex Free T4 3.07 uIU/mL (0.32-4.0); Vitamin D 25-OH Total 23.2 ng/mL (>30)
[2023-06-17 10:48] LABS: Ferritin 20 ng/mL (10-250)
[2023-06-17 14:43] LABS: Folate 8.8 ng/mL (> or = 4.0); Vitamin B12 368 pg/mL (200-900)
[2023-06-18 18:13] LABS: Calcium (PTHI) 6.4 mg/dL (8.6-10.2); PTHI 29 pg/mL (16-77)
[2023-06-20 14:19] LABS: Vitamin B1 11 nmol/L (8-30)
[2023-06-20 16:08] LABS: Zinc 55 mcg/dL (60-130)
[2023-06-21 04:03] LABS: Vitamin A 33 mcg/dL (38-98)
== END 2023-06-17 08:17 | disposition home or self-care (01) ==
LOC: HO.LAB 08:16
PROVIDERS: PCP Internal Medicine; Referring Provider Internal Medicine; Visit Provider Physician Assistant Surgical
DX: E51.9 Thiamine deficiency, unspecified (principal); E60 Dietary zinc deficiency; E55.9 Vitamin D deficiency, unspecified; E66.01 Morbid (severe) obesity due to excess calories; I10 Essential (primary) hypertension; D50.8 Other iron deficiency anemias; F32.9 Major depressive disorder, single episode, unspecified; Z63.4 Disappearance and death of family member
CPT/HCPCS: 36415; 71046; 80053; 80061; 82306; 82607; 82728; 82746; 83036; 83525; 83540; 83970; 84425; 84443; 84590; 84630; 85025; 86140; 93005

== ENCOUNTER 2023-07-10 14:18 | Outpatient (AMB) | payer OTHER, SELFPAY ==
--- NOTE | 2023-07-10 13:56 | MHC.WMTHER ---
Intake Intake Visit Reasons: VIDEO BH Intake Allergies shrimp Allergy (Severe, Verified 12/11/22 13:53) HIVES FOR[facility], [facility]–1983 Medical History (Updated 07/10/23 @ 14:43 by Chely Mccormack) HTN (hypertension) Asthma Psoriasis Atopic eczema Surgical History History of tubal ligation Hx of section Family History Father Asthma Cancer Mother Hypertension Sister Hypertension Brother No problems noted. Son No problems noted. Son ADHD Autism Daughter Asthma Eczema Social History (Updated 05/22/23 @ 13:12 by Ameena Awan CMA) Alcohol intake: current Alcohol intake frequency: a few times a month Alcohol type: wine Patient Tobacco Use Status: Former Tobacco user Female Reproductive History Menstrual Age of Menarche: 13 Behavioral Health Assessment Weight Management Therapy Therapy Notes Details Pt stated that she is looking to have weight loss surgery to help improve her health and quality of life. She reported that she has struggled to loose weight. Pt recently lost her son. She is not in therapy but acknowledges that she needs to be. She reported being in therapy many years ago. Pt has no history of inpatient psychiatric admissions. Presenting Concerns Referral Source provider Reason for referral weight loss surgery evaluation Precipitating Event obesity Living Situation Current Living Situation Own At risk of losing current housing? No Satisfied with current living situation? Yes Comments Patient lives with her 21 year and 18 year old children. Food/Weight/Diet Expectations of change weight loss and maintenance History/Relationship with food Patient stated that she does not eat horribly, does not understand why she is so overweight. She eats baked meats or air fried meat/fish, vegetables, coffee, tea. cheese is her biggest struggle. History/Relationship with weight She is at her heaviest. Pt stated that her son this past year and she gained sig, weight since then. As a teenager she was thin and then gained some weight when she started to have kids. History/Relationship with dieting Patient stated that she has tried various diets and will loose some weight some but then gain it. 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 Also was in [facility] in 2020. Binge Eating Do you frequently eat large amounts of food in short periods of time, not feeling physically hungry? No Do you feel out of control when you eat a large amount of food in a short period of time? No Do you eat large amounts of food rapidly and typically alone? No Night Eating Do you wake up at least once during the night to eat? No If you wake up in the night, do you find that it is necessary to eat something in order to fall back asleep? No Do you have little or no appetite in the morning and feel very hungry in the evening, often overeating between dinner and when you go to bed? 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 No Interested in further educational program? 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 No Financial Situation Describe current financial situation Occasional struggle Financial assistance? None Mental Health and Addiction Treatment Current/Past substance abuse? No Current/Past addictive behavior concerns? No Psychiatric history Pt reported being given medications for anxiety and they made her sleep so she threw them away. Medical and Physical Health Summary Physical exam in the last year? Yes Pain Screening Current pain? No Pain in the last few months? No Medications Is the patient compliant with medications? Yes Does the patient have Bond Guardian in place? Not applicable Does the patient use complimentary health approaches? No Trauma/Abuse History History of trauma? Yes Questionnaires PHQ-9 Over the last 2 weeks, how often have you been bothered by any of the following problems? 1. Little interest or pleasure in doing things: more than half the days 2. Feeling down, depressed, or hopeless: several days 3. Trouble falling or staying asleep, or sleeping too much: nearly every day 4. Feeling tired or having little energy: nearly every day 5. Poor appetite or overeating: nearly every day 6. Feeling bad about yourself - or that you are a failure or have let yourself or your family down: not at all 7. Trouble concentrating on things, such as reading the newspaper or watching television: more than half the days 8. Moving or speaking so slowly that other people could have noticed. Or the opposite - being so fidgety or restless that you have been moving around a lot more than usual: not at all 9. Thoughts that you would be better off or of hurting yourself in some way: not at all Total score: 14 Source: Developed by Drs. Quique Cid, Guadalupe Fernandes, Kyree Henning and colleagues, with an educational chelsie from [employer]. Binge Eating Scale Group 1 A. I don't feel self-conscious about my wt. or body size when I'm with others. B. I feel concerned about how I look to others, but it normally does not make me fell disappointed with myself C. I do get self-conscious about my appearance and wt. which makes me feel disappointed in myself. D. I feel very self-conscious about my wt. and frequently I feel intense shame and disgust for myself. I try to avoid social contacts because of my self-consciousness. Response Group 1: C Group 2 A. I don't have any difficulty eating slowly in the proper manner. B. Although I seem to gobble down foods, I don't end up feeling stuffed because of eating to much. C. At times, I tend to eat quickly and then, I feel uncomfortably full afterwards. D. I have the habit of bolting down my food, without really chewing it. When this happens I usually feel uncomfortably stuffed because I've eaten to much. Response Group 2: A Group 3 A. I feel capable to control my eating urges when I want to. B. I feel like I have failed to control my eating more than the average person. C. I feel utterly helpless when it comes to feeling in control of my eating urges. D. Because I feel so helpless about controlling my eating I have become very desperate about trying to get control. Response Group 3: A Group 4 A. I don't have the habit of eating when I'm bored. B. I sometimes eat when I'm bored, but often I'm able to get busy and get my mind off food. C. I have a regular habit of eating when I'm bored, but occasionally, I can use some other activity to get my mind off eating. D. I have a strong habit of eating when I'm bored. Nothing seems to help me breath the habit. Response Group 4: B Group 5 A. I'm usually physically hungry when I eat something. B. Occasionally, I eat something on impulse even though I really am not hungry. C. I have the regular habit of eating foods, that I might not really enjoy, to satisfy a hungry feeling even though physically, I don't need the food. D. Although I'm not physically hungry, I get a hungry feeling in my mouth that only seems to be satisfied when I eat a food, like sandwich, that fills my mouth. Sometimes, when I eat the food to satisfy my mouth hunger, I then spit the food out so I won't gain weight. Response Group 5: B Group 6 A. I don't feel any guilt or self-hate after I overeat. B. After I overeat, occasionally I feel guilt or self-hate. C. Almost all the time I experience strong guilt or self-hate after I overeat. Response Group 6: B Group 7 A. I don't lose total control of my eating when dieting even after periods when I overeat. B. Sometimes when I eat a forbidden food on a diet, I feel like I blew it and eat even more. C. Frequently, I have the habit of saying to myself, I've blown it now, why not go all the way, when I overeat on a diet. When that happens I eat more. D. I have a regular habit of starting a strict diets for myself but I break the diets by going on an eating binge. My life seems to be either a feast or famine. Response Group 7: B Group 8 A. I rarely eat so much food that I feel uncomfortably stuffed afterwards. B. Usually about once a month, I each such a quantity of food, I end up feeling very stuffed. C. I have regular periods during the month when I eat large amounts of food, either at mealtime or at snacks. D. I eat so much food that I regularly feel quite uncomfortable after eating and sometimes a bit nauseous. Response Group 8: C Group 9 A. My level of calorie intake does not go up very high or go down very low on a regular basis. B. Sometimes after I overeat, I will try to reduce my caloric intake to almost nothing to compensate for the excess calories I've eaten. C. I have a regular habit of overeating during the night. It seems that my routine is not to be hungry in the morning but overeat in the evening. D. In my adult years, I have had week-long periods where I practically starve myself. This follows periods when I overeat. It seems I live a life of either feast or famine. Response Group 9: C Group 10 A. I usually am able to stop eating when I want to. I know when enough is enough. B. Every so often, I experience a compulsion to eat which I can't seem to control. C. Frequently, I experience strong urges to eat which I seem unable to control, but at other times I can control my eating urges. D. I feel incapable of controlling urges to eat. I have a fear of not being able to stop eating voluntarily. Response Group 10: C Group 11 A. I don't have any problem stopping eating when I feel full. B. I usually can stop eating when I feel full but occasionally overeat leaving me feeling uncomfortably stuffed. C. I have a problem stopping eating once I start and usually I feel uncomfortably stuffed after I eat a meal. D. Because I have a problem not being able to stop eating when I want, I sometimes have to induce vomiting to relieve my stuffed feeling. Response Group 11: B Group 12 A. I seem to eat just as much when I'm with others, Family social gatherings as when I'm by myself. B. Sometimes, when I'm with other persons, I don't eat as much as I want to eat because I'm self-conscious about my eating. C. Frequently, I eat only a small amount of food when others are present, because I'm very embarrassed about my eating. D. I feel so ashamed about overeating that I pick times to overeat when I know no one will see me. I feel like a closet eater. Response Group 12: B Group 13 A. I eat three meals a day with only an occasional between meal snack. B. I eat 3 meals a day, but I also normally snack between meals. C. When I am snacking heavily, I get in the habit of skipping regular meals. D. There are regular periods when I seem to be continually eating, with no planned meals. Response Group 13: D Group 14 A. I don't think much about trying to control unwanted eating urges. B. At least some of the time, I feel my thoughts are pre-occupied with trying to control my eating urges. C. I feel that frequently I spend much time thinking about how much I ate or about trying not to eat anymore. D. It seems to me that most of my waking hours are pre-occupied by thoughts about eating or not eating. I feel like I'm constantly struggling not to eat. Response Group 14: B Group 15 A. I don't think about food a great deal. B. I have strong craving for food but they last only for brief periods of time. C. I have days when I can't seem to think about anything else but food. D. Most of my days seem to be pre-occupied with thoughts about food. I feel like I live to eat. Response Group 15: B Group 16 A. I usually know whether or not I'm physically hungry. I take the right portion of food to satisfy me. B. Occasionally, I feel uncertain about knowing whether or not I'm physically hungry. A these times it's hard to know how much food I should take to satisfy me. C. Even though I might know how many calories I should eat, I don't have any idea what is a normal amount of food for me. 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 She reported some barriers to her being able to follow the plan, one being going on vacation. She does not have any serious mental health concerns and will be seen again. Telehealth Telehealth Location of provider rendering services: practice address Location of patient: address on file Patient Identification confirmed using: Name, : Yes Telehealth method: voice only Patient verbally consented to treatment: Yes Patient verbally consented to billing insurance company: Yes Patient informed of any privacy concerns related to visit: Yes Minutes spent on Phone/Video with Pt.: 45 Coding Level of Care Code Tele Psy Diag Eval (98953) Diagnoses Complicated bereavement F43.21 Morbid obesity due to excess calories E66.01 Time Spent (min) 45
== END 2023-07-10 14:31 | disposition home or self-care (01) ==
LOC: HO.HBST 14:18
PROVIDERS: PCP Internal Medicine; Visit Provider Counselor Mental Health
DX: F43.21 Adjustment disorder with depressed mood (principal); E66.01 Morbid (severe) obesity due to excess calories
CPT/HCPCS: 90791

== ENCOUNTER → 2023-07-10 14:18 | Outpatient (BNVA) | payer OTHER, SELFPAY | PROVIDERS: PCP Internal Medicine; Visit Provider Counselor Mental Health ==

== ENCOUNTER 2023-07-15 15:05 | Outpatient (AMB) | payer OTHER, SELFPAY ==
--- NOTE | 2023-07-15 10:38 | A.OFFVIS_ITS ---
Intake VS Expanded 07/15/23 10:39 Height 5 ft 1 in Weight 310 lb 3.2 oz BMI 58.6 Intake Visit Reasons: VIDEO F/U SWL Allergies shrimp Allergy (Severe, Verified 12/11/22 13:53) HIVES HPI HPI Comments History of Present Illness Details The patient is a pleasant 47 year old female who returns to the clinic for pre-operative surgical weight loss management. They were last seen in the office on 06/10/23, recorded weight at that time was 313.8 pounds, with a BMI of 59.2. Today's weight is 310.2 pounds and BMI is 58.6. There has been a weight loss of 6.2 pounds since initiating the surgical weight loss program on 05/22/23 with a total body weight loss of 1.9 %. Pre op work up completed as follows: SWL classes:? [] BH appts: f/u 08/01/23 ? ? RD appts: 06/25/23 Labs: 06/17/23-Low, D, iron, B12:368, Ca, A, Zinc H. pylori: not yet done CXR: 06/17/23-nad EK06/17/23-normal ABD U/S: 06/24/23 UGI: 07/30/23 The patient reports she has been following the meal plan. having 2 shakes shakes as she can't do the third shake. She has not been eating the protein bar. 2 scoops in first shake 1.25 c, 8-10 1 scoop in 8 oz 12-2 fresh berries meal at 5, 11 forks/11 forks No bar after dinner Current meal plan includes: 3 Celebrate Rebuild shakes First shake ( 1 and 1/2 scoop in 12 oz fairlife milk) at 8am-10am, Second shake (1 scoop in 8 oz fairlife milk) at 11am-1pm Third shake (1 scoop in 8 oz fairlife milk) at 2pm-4pm Dinner at 6-630pm (11 forks of protein and 11 forks of salad/vegetables). 1 protein bar (Celebrate Protein bars) a t 8pm-10pm. Drinking 64 oz of water Current exercise plan includes: none, complains of right foot pain due to plantar fasciitis. Reports she saw her doctor who Rx some medications. has follow up next week [facility] Medical History HTN (hypertension) Asthma Psoriasis Atopic eczema Surgical History History of tubal ligation Hx of section Family History Father Asthma Cancer Mother Hypertension Sister Hypertension Brother No problems noted. Son No problems noted. Son ADHD Autism Daughter Asthma Eczema Social History Alcohol intake: current Alcohol intake frequency: a few times a month Alcohol type: wine Patient Tobacco Use Status: Former Tobacco user Female Reproductive History Menstrual Age of Menarche: 13 Review of Systems Const All systems reviewed & are unremarkable except as noted in HPI and below Physical Exam Const General: healthy appearing and no acute distress Resp Effort & Inspection: normal respiratory effort Auscultation: clear to auscultation bilaterally Cardio Rate: regular rate Rhythm: regular rhythm GI Auscultation: normal bowel sounds Extrem General: Yes normal to inspection Assessment & Plan Assessment & Plan (1) Morbid obesity: Code(s): E66.01 - Morbid (severe) obesity due to excess calories Plan: Patient is having a difficult time following the meal plan. She is eating less and making better choices however is only having to shakes. She states that she is going to incorporate the 3rd shake. I encouraged her to decrease all shakes to 1 scoop celebrate rebuild with 8 oz of fair life milk. Continue her meal and have her protein bar after her meal as recommended. Encouraged to return to the gym and at the very least walk in the pool if she still having problems with her right foot pain. She states she scheduled for follow-up with her primary care physician next week. She does say that her foot has improved somewhat but then in the next sentence she says that it still hurts her a lot. It is unclear that she is going to be able to commit to the meal plan and exercise plan to be successful within our program however she will follow up with another appointment by phone in about 3 weeks. She was encouraged to text me weekly. She does have a body composition scale but has failed to set it up on multiple occasions. I encouraged her to download the instruction manual and she states that she will do so. Telehealth Telehealth Location of provider rendering services: practice address Location of patient: address on file Patient Identification confirmed using: Name, : Yes Telehealth method: voice only Patient verbally consented to treatment: Yes Patient verbally consented to billing insurance company: Yes Patient informed of any privacy concerns related to visit: Yes Minutes spent on Phone/Video with Pt.: 20 Coding Level of Care Code Tele Est Pt Level 3 (40055) Diagnoses Morbid obesity E66.01 Time Spent (min) 25
[2023-07-15 10:39] VITALS: BMI 58.6
== END 2023-07-15 15:08 | disposition home or self-care (01) ==
LOC: HO.HBS 15:05
PROVIDERS: PCP Internal Medicine; Visit Provider Physician Assistant Surgical
DX: E66.01 Morbid (severe) obesity due to excess calories (principal)
CPT/HCPCS: 99213

== ENCOUNTER → 2023-07-15 15:05 | Outpatient (BNVA) | payer OTHER, SELFPAY | PROVIDERS: PCP Internal Medicine; Visit Provider Physician Assistant Surgical ==

== ENCOUNTER 2023-08-01 15:59 | Outpatient (AMB) | payer OTHER, SELFPAY ==
--- NOTE | 2023-08-01 15:52 | A.OFFWM_ITS ---
Intake Intake Visit Reasons: VIDEO BH F/U Allergies shrimp Allergy (Severe, Verified 12/11/22 13:53) HIVES [facility] Medical History HTN (hypertension) Asthma Psoriasis Atopic eczema Surgical History History of tubal ligation Hx of section Family History Father Asthma Cancer Mother Hypertension Sister Hypertension Brother No problems noted. Son No problems noted. Son ADHD Autism Daughter Asthma Eczema Social History Alcohol intake: current Alcohol intake frequency: a few times a month Alcohol type: wine Patient Tobacco Use Status: Former Tobacco user Female Reproductive History Menstrual Age of Menarche: 13 Behavioral Health Assessment Weight Management Therapy Therapy Notes Details Pt stated that she is looking to have weight loss surgery to help improve her health and quality of life. She reported that she has struggled to loose weight. Pt recently lost her son. She is not in therapy but acknowledges that she needs to be. She reported being in therapy many years ago. Pt has no history of inpatient psychiatric admissions. Presenting Concerns Referral Source provider Reason for referral weight loss surgery evaluation Precipitating Event obesity Living Situation Current Living Situation Own At risk of losing current housing? No Satisfied with current living situation? Yes Comments Patient lives with her 21 year and 18 year old children. Food/Weight/Diet Expectations of change weight loss and maintenance History/Relationship with food Patient stated that she does not eat horribly, does not understand why she is so overweight. She eats baked meats or air fried meat/fish, vegetables, coffee, tea. cheese is her biggest struggle. History/Relationship with weight She is at her heaviest. Pt stated that her son this past year and she gained sig, weight since then. As a teenager she was thin and then gained some weight when she started to have kids. History/Relationship with dieting Patient stated that she has tried various diets and will loose some weight some but then gain it. Low carb, Keto, Protein replacements, Herbalife, portion control, exercise, and compatibility test engineer consults. Also was in [facility] in 2020. Binge Eating Do you frequently eat large amounts of food in short periods of time, not feeling physically hungry? No Do you feel out of control when you eat a large amount of food in a short period of time? No Do you eat large amounts of food rapidly and typically alone? No Night Eating Do you wake up at least once during the night to eat? No If you wake up in the night, do you find that it is necessary to eat something in order to fall back asleep? No Do you have little or no appetite in the morning and feel very hungry in the evening, often overeating between dinner and when you go to bed? 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 No Interested in further educational program? 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 No Financial Situation Describe current financial situation Occasional struggle Financial assistance? None Service Service? No Mental Health and Addiction Treatment Current/Past substance abuse? No Current/Past addictive behavior concerns? No Psychiatric history Pt reported being given medications for anxiety and they made her sleep so she threw them away. Medical and Physical Health Summary Physical exam in the last year? Yes Pain Screening Current pain? No Pain in the last few months? No Medications Is the patient compliant with medications? Yes Does the patient have Bond Guardian in place? Not applicable Does the patient use complimentary health approaches? No Trauma/Abuse History History of trauma? Yes Questionnaires PHQ-9 Over the last 2 weeks, how often have you been bothered by any of the following problems? 1. Little interest or pleasure in doing things: several days 2. Feeling down, depressed, or hopeless: several days 3. Trouble falling or staying asleep, or sleeping too much: several days 4. Feeling tired or having little energy: several days 5. Poor appetite or overeating: not at all 6. Feeling bad about yourself - or that you are a failure or have let yourself or your family down: more than half the days 7. Trouble concentrating on things, such as reading the newspaper or watching television: more than half the days 8. Moving or speaking so slowly that other people could have noticed. Or the opposite - being so fidgety or restless that you have been moving around a lot more than usual: several days 9. Thoughts that you would be better off or of hurting yourself in some way: not at all Total score: 9 Source: Developed by Drs. Quique Cid, Guadalupe Fernandes, Kyree Henning and colleagues, with an educational chelsie from [employer]. 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 She reported some barriers to her being able to follow the plan, one being going on vacation. She does not have any serious mental health concerns and will be seen again. Telehealth Telehealth Location of provider rendering services: other Location of patient: other Patient Identification confirmed using: Name, : Yes Telehealth method: voice only Patient verbally consented to treatment: Yes Patient verbally consented to billing insurance company: Yes Patient informed of any privacy concerns related to visit: Yes Minutes spent on Phone/Video with Pt.: 35 Coding Level of Care Code Tele Psytx 30 mins (88567) Diagnoses Complicated bereavement F43.21 Morbid obesity due to excess calories E66.01 Time Spent (min) 35
== END 2023-08-15 14:06 | disposition home or self-care (01) ==
LOC: HO.HBST 15:59
PROVIDERS: PCP Internal Medicine; Visit Provider Counselor Mental Health
DX: F43.21 Adjustment disorder with depressed mood (principal); E66.01 Morbid (severe) obesity due to excess calories
CPT/HCPCS: 90832

== ENCOUNTER → 2023-08-01 15:59 | Outpatient (BNVA) | payer OTHER, SELFPAY | PROVIDERS: PCP Internal Medicine; Visit Provider Counselor Mental Health ==

== ENCOUNTER 2023-08-12 13:51 | Outpatient (AMB) | payer OTHER, SELFPAY ==
--- NOTE | 2023-08-12 12:35 | A.OFFVIS_ITS ---
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 Press Tender Required: No Allergies shrimp Allergy (Severe, Verified 12/11/22 13:53) HIVES Medication List - Last Reconciled 08/12/23 by JAMES Lugo albuterol sulfate 90 mcg/actuation 2 puffs inhalation Q6H PRN calcium gluconate 60 mg PO DAILY 90 days cholecalciferol (vitamin D3) 125 mcg PO DAILY 90 days clobetasol 0.05% 1 appl topical BID cyanocobalamin (vitamin B-12) 500 mcg PO .qod iron,carbonyl-vitamin C 65 mg iron- 125 mg (Vitron-C) 1 tab PO DAILY 90 days lisinopril-hydrochlorothiazide 20-25 mg tabs PO montelukast (Singulair) 10 mg PO DAILY vitamin A palmitate 3,000 mcg PO DAILY zinc gluconate 30 mg PO DAILY HPI HPI Comments History of Present Illness Details The patient is a pleasant 47 year old female who returns to the clinic for pre-operative surgical weight loss management. They were last seen in the office on 07/15/2023, recorded weight at that time was 310.2 pounds, with a BMI of 58.6. Today's weight is 306 pounds and BMI is 57.8. There has been a weight loss of 10.4 pounds since initiating the surgical weight loss program on 05/22/2023 with a total body weight loss of 3.2 %. Pre op work up completed as follows: [facility] classes:? []/ appts: f/u 08/22/23 ? ? RD appts: Needs follow-up Labs: 06/17/23-Low, D, iron, B12:368, Ca, A, Zinc H. pylori: not yet done CXR: 06/17/23-nad EK06/17/23-normal ABD U/S: 06/24/23 UGI: 07/30/23 The patient reports she has been following the meal plan. Not using the protein bar at night. Not doing the first shake due to running out of the house. She states she is proud to have the 2 shakes. Having 14 forks or protein and not measuring her salad. she was using almond milk and has not been communicating Current meal plan includes: 3 Celebrate Rebuild shakes First shake (1 scoop in 8 oz fairlife milk) at 8am-10am, Second shake (1 scoop in 8 oz fairlife milk) at 11am-1pm Third shake (1 scoop in 8 oz fairlife milk) at 2pm-4pm Dinner at 6-630pm (11 forks of protein and 11 forks of salad/vegetables). 1 protein bar (Celebrate Protein bars) a t 8pm-10pm. Drinking 64 oz of water Current exercise plan includes: wall pilates, 30 minutes, daily no exercise equip at home [facility] Medical History HTN (hypertension) Asthma Psoriasis Atopic eczema Surgical History History of tubal ligation Hx of section Family History Father Asthma Cancer Mother Hypertension Sister Hypertension Brother No problems noted. Son No problems noted. Son ADHD Autism Daughter Asthma Eczema Social History Alcohol intake: current Alcohol intake frequency: a few times a month Alcohol type: wine Patient Tobacco Use Status: Former Tobacco user Female Reproductive History Menstrual Age of Menarche: 13 Assessment & Plan Assessment & Plan (1) Morbid obesity: Code(s): E66.01 - Morbid (severe) obesity due to excess calories Plan: Discussed the critical element of communicating as she had not been doing that and had been changing her meal plan. Recommendation is as follows Alonzo, Celivy rebuild, 2 scoops in 12 oz of unsweetened almond milk at 10-12, 2-4 p.m. Meal at 6 with 10 forks of protein and 10 forks of salad or vegetables Shake 2 scoops in 12 oz of unsweetened almond milk at 8-10. She has been encouraged to join the gym or by a piece of exercise equipment to use at home as the current wall pilatesis a is not enough. f/u me one month reschedule RD, H Pylori, UGI, US Telehealth Telehealth Location of provider rendering services: practice address Location of patient: other Patient Identification confirmed using: Name, : Yes Telehealth method: voice only Patient verbally consented to treatment: Yes Patient verbally consented to billing insurance company: Yes Patient informed of any privacy concerns related to visit: Yes Minutes spent on Phone/Video with Pt.: 15 Coding Level of Care Code Est Pt Level 4 (87503) Diagnoses Morbid obesity E66.01 Time Spent (min) 30
[2023-08-12 12:36] VITALS: BMI 57.8
== END 2023-08-12 14:05 | disposition home or self-care (01) ==
LOC: HO.HBS 13:51
PROVIDERS: PCP Internal Medicine; Visit Provider Physician Assistant Surgical
DX: E66.01 Morbid (severe) obesity due to excess calories (principal); Z68.43 Body mass index [BMI] 50.0-59.9, adult
CPT/HCPCS: 99214

== ENCOUNTER → 2023-08-12 13:51 | Outpatient (BNVA) | payer OTHER, SELFPAY | PROVIDERS: PCP Internal Medicine; Visit Provider Physician Assistant Surgical ==

== ENCOUNTER 2023-09-24 11:35 | Outpatient (AMB) | payer OTHER, SELFPAY ==
--- NOTE | 2024-01-01 13:46 | A.OFFWM_ITS ---
Intake Intake Visit Reasons: VIDEO BH F/U Allergies shrimp Allergy (Severe, Verified 12/11/22 13:53) HIVES [facility] Medical History HTN (hypertension) Asthma Psoriasis Atopic eczema Surgical History History of tubal ligation Hx of section Family History Father Asthma Cancer Mother Hypertension Sister Hypertension Brother No problems noted. Son No problems noted. Son ADHD Autism Daughter Asthma Eczema Social History Alcohol intake: current Alcohol intake frequency: a few times a month Alcohol type: wine Patient Tobacco Use Status: Former Tobacco user Female Reproductive History Menstrual Age of Menarche: 13 Behavioral Health Assessment Weight Management Therapy Therapy Notes Details Patient reported struggling with consistency, is not exercising, asked about the [employer] and if we are still offering letters for discount. She was emailed the letter to bring for membership. Pt stated that she is looking to have weight loss surgery to help improve her health and quality of life. She reported that she has struggled to loose weight. Pt recently lost her son. She is not in therapy but acknowledges that she needs to be. She reported being in therapy many years ago. Pt has no history of inpatient psychiatric admissions. Presenting Concerns Referral Source provider Reason for referral weight loss surgery evaluation Precipitating Event obesity Living Situation Current Living Situation Own At risk of losing current housing? No Satisfied with current living situation? Yes Comments Patient lives with her 21 year and 18 year old children. Food/Weight/Diet Expectations of change weight loss and maintenance History/Relationship with food Patient stated that she does not eat horribly, does not understand why she is so overweight. She eats baked meats or air fried meat/fish, vegetables, coffee, tea. cheese is her biggest struggle. History/Relationship with weight She is at her heaviest. Pt stated that her son this past year and she gained sig, weight since then. As a teenager she was thin and then gained some weight when she started to have kids. History/Relationship with dieting Patient stated that she has tried various diets and will loose some weight some but then gain it. Low carb, Keto, Protein replacements, Herbalife, portion control, exercise, and him clerk consults. Also was in [facility] in 2020. Binge Eating Do you frequently eat large amounts of food in short periods of time, not feeling physically hungry? No Do you feel out of control when you eat a large amount of food in a short period of time? No Do you eat large amounts of food rapidly and typically alone? No Night Eating Do you wake up at least once during the night to eat? No If you wake up in the night, do you find that it is necessary to eat something in order to fall back asleep? No Do you have little or no appetite in the morning and feel very hungry in the evening, often overeating between dinner and when you go to bed? 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 No Interested in further educational program? 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 No Financial Situation Describe current financial situation Occasional struggle Financial assistance? None Service Service? No Mental Health and Addiction Treatment Current/Past substance abuse? No Current/Past addictive behavior concerns? No Psychiatric history Pt reported being given medications for anxiety and they made her sleep so she threw them away. Medical and Physical Health Summary Physical exam in the last year? Yes Pain Screening Current pain? No Pain in the last few months? No Medications Is the patient compliant with medications? Yes Does the patient have Bond Guardian in place? Not applicable Does the patient use complimentary health approaches? No Trauma/Abuse History History of trauma? 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 She reported some barriers to her being able to follow the plan, one being going on vacation. She does not have any serious mental health concerns and will be seen again. Telehealth Telehealth Location of provider rendering services: practice address Location of patient: other Patient Identification confirmed using: Name, : Yes Telehealth method: voice only Patient verbally consented to treatment: Yes Patient verbally consented to billing insurance company: Yes Patient informed of any privacy concerns related to visit: Yes Minutes spent on Phone/Video with Pt.: 15 Coding Level of Care Code Tele Psytx 30 mins (05317) Diagnoses Complicated bereavement F43.21 Morbid obesity due to excess calories E66.01 Time Spent (min) 15
== END 2024-01-01 13:43 | disposition home or self-care (01) ==
LOC: HO.HBST 11:35
PROVIDERS: PCP Internal Medicine; Visit Provider Counselor Mental Health
DX: F43.21 Adjustment disorder with depressed mood (principal); E66.01 Morbid (severe) obesity due to excess calories
CPT/HCPCS: 99499

== ENCOUNTER → 2023-09-24 11:35 | Outpatient (BNVA) | payer OTHER, SELFPAY | PROVIDERS: PCP Internal Medicine; Visit Provider Counselor Mental Health ==

== ENCOUNTER 2023-12-19 14:02 | Outpatient (REF) | payer OTHER, SELFPAY ==
--- NOTE | ~2023-12-19 | US_ITS ---
EXAMINATION: US PELVIS CLINICAL INFORMATION: Abnormal uterine bleeding, premenopausal. COMPARISON: Pelvic ultrasound 03/27/2016. TECHNIQUE: Ultrasound of the pelvis is performed using both transabdominal and transvaginal transducers along with Doppler. Transvaginal imaging is performed due to inadequate visualization transabdominally. FINDINGS: Uterus: The uterus is anteverted and measures 11.8 x 4.6 x 5.5 cm. The double wall endometrial thickness ranges from 3-6 mm. The uterus is smooth in contour and has normal myometrial echogenicity. No visible fibroid. Nabothian cysts as well as some calcifications are seen in the cervix. Adnexa: Both ovaries are visualized. There is normal color flow to the adnexa. There is no ovarian torsion. There is no pelvic ascites or fluid collection. Right ovary measures 3.1 x 1.8 x 2.7 cm for a volume of 8.0 mL and appears unremarkable. Left ovary measures 4.0 x 5.2 x 4.7 cm for a volume of 51 mL which includes a new benign simple 3.2 x 4.6 x 4.3 cm cyst. US/US pelvic and transvaginal IMPRESSION: No significant abnormality is seen. A 4.6 cm benign left ovarian cyst is present. As this is under 5 cm in size, no follow-up is needed.
== END 2023-12-19 14:03 | disposition home or self-care (01) ==
LOC: HO.US 14:02
PROVIDERS: PCP Internal Medicine; Visit Provider Obstetrics & Gynecology
DX: N92.1 Excessive and frequent menstruation with irregular cycle (principal)
CPT/HCPCS: 76830; 76856

== ENCOUNTER 2024-01-14 12:24 | Outpatient (REF) | payer OTHER, SELFPAY ==
[2024-01-14 12:39] LABS: MANUAL DIFF FLAG NO
[2024-01-14 13:31] LABS: Basophils Percent Auto 0.5 % (0-2); Eosinophils Absolute Auto 0.2 X10*3/uL (0.0-0.4); Eosinophils Percent Auto 2.2 % (0-4); Hematocrit 36.9 % (37.0-47.0); Imm Gran Abs Auto 0.03 X10*3/uL (0.00-0.03); Imm Gran Pct Auto 0.3 % (0.0-0.4); Lymphocytes Absolute Auto 3.1 X10*3/uL (1.2-4.9); Mean Corpuscular HGB Conc 29.8 g/dl (31.0-35.0); Mean Corpuscular Hemoglobin 23.2 pg (27.0-33.0); Mean Corpuscular Volume 77.7 fL (80.0-98.0); Mean Platelet Volume 9.6 fL (9.4-12.3); Monocytes Absolute Auto 0.5 X10*3/uL (0.1-1.2); Monocytes Percent Auto 5.4 % (2-11); Neutrophils Absolute Auto 4.9 x10*3/uL (2.0-8.3); Neutrophils Percent Auto 56.6 % (45-73); Platelet Count 242 X10*3/uL (160-400); Red Blood Count 4.75 X10*6/uL (4.20-5.50); Red Cell Distribution Width 16.5 % (11.0-16.0); White Blood Count 8.7 X10*3/uL (4.8-10.8)
[2024-01-14 13:45] LABS: Estimated Average Glucose 146 mg/dL; Hemoglobin A1c % 6.7 % (<6.0)
[2024-01-14 13:48] LABS: D Dimer High Sensitivity < 150 NG/ML
[2024-01-14 14:21] LABS: Alanine Aminotransferase 17 U/L (0-31); Alkaline Phosphatase 77 U/L (39-117); Anion Gap 16 (12-20); Aspartate Amino Transferase 14 U/L (5-31); Bilirubin Total 0.3 mg/dL (0.0-1.0); Blood Urea Nitrogen 13 mg/dL (9-16); Calcium 9.6 mg/dL (8.4-10.2); Carbon Dioxide 30 mmol/L (22-29); Chloride 99 mmol/L (96-108); Cholesterol 230 mg/dL (<200); Estimated Glomerular Filt Rate > 60; Glucose Random 111 mg/dL (60-115); HDL Cholesterol 57 mg/dL (>40); LDL Cholesterol Calculated 152 mg/dL (<100); Potassium 3.7 mmol/L (3.3-5.1); Sodium 141 mmol/L (135-145); Total Protein 7.5 g/dL (6.5-8.0); Triglycerides 108 mg/dL (<150)
[2024-01-14 14:29] LABS: Ferritin 24 ng/mL (10-250); Thyroid Stimulating Hormone 1.47 uIU/mL (0.32-4.0)
== END 2024-01-14 12:25 | disposition home or self-care (01) ==
LOC: HO.LAB 12:24
PROVIDERS: PCP Internal Medicine; Visit Provider Internal Medicine
DX: Z00.01 Encounter for general adult medical examination with abnormal findings (principal); D64.9 Anemia, unspecified; I10 Essential (primary) hypertension; N93.8 Other specified abnormal uterine and vaginal bleeding; R73.01 Impaired fasting glucose
CPT/HCPCS: 36415; 80053; 80061; 82728; 83001; 83036; 84443; 85025; 85379

== ENCOUNTER 2024-02-24 16:09 | Outpatient (REF) | payer OTHER, SELFPAY | END 2024-02-24 16:10 | disposition home or self-care (01) | LOC: HO.MAMMO 16:09 | PROVIDERS: PCP Internal Medicine; Visit Provider Internal Medicine | DX: Z13.89 Encounter for screening for other disorder (principal) ==

== ENCOUNTER 2024-04-13 11:04 | Outpatient (AMB) | payer OTHER, SELFPAY ==
[2024-04-13 11:09] VITALS: BP 140/68; PULSE 85; BMI 58.3
--- NOTE | 2024-04-13 11:09 | MHC.OFFVIS ---
Vital Signs 04/13/24 11:09 Height 5 ft 1 in Weight 308 lb 10.354 oz BMI 58.3 BP 140/68 H Blood Pressure Location Lt brachial Position Sitting Pulse 85 Pulse Source Monitor Intake Visit Reasons: [facility]/Dr. Ruth/Palpitations Allergies shrimp Allergy (Severe, Verified 12/11/22 13:53) HIVES Medication List - Last Reconciled 04/13/24 by Darrell العراقي MD albuterol sulfate 90 mcg/actuation 2 puffs inhalation Q6H PRN clobetasol 0.05% 1 appl topical BID lisinopril-hydrochlorothiazide 20-25 mg tabs PO montelukast (Singulair) 10 mg PO DAILY HPI Comments Details: Klarissa is here for consultation regarding palpitations. It seems that she lost her son last year who is only 27 years old. Unclear reason. She is in fact quite tearful in the clinic. She states that her entire life change after that. She has gained a lot of weight and she has not been feeling good. Over the last few months, she is having lot of palpitations/fluttering in the chest. Can happen any time. She is on home feels that lisinopril is the pill that is contributing to it although it is unlikely. Otherwise, no angina or other cardiac complaints. No known cardiac issues like coronary disease or myocardial infarction or cardiomyopathy. [facility] Medical History HTN (hypertension) Asthma Psoriasis Atopic eczema Surgical History History of tubal ligation Hx of section Family History Father Asthma Cancer Mother Hypertension Sister Hypertension Brother No problems noted. Son No problems noted. Son ADHD Autism Daughter Asthma Eczema Social History Alcohol intake: current Alcohol intake frequency: a few times a month Alcohol type: wine Patient Tobacco Use Status: Former Tobacco user Female Reproductive History Menstrual Age of Menarche: 13 Review of Systems Const Denies weakness ENT Denies dizziness Card Denies chest pain, Denies chest pain with activity, Denies syncope, Denies rapid heart rate, Denies pedal edema, Denies edema, Denies leg edema, Denies lightheadedness, Reports palpitations, Denies dyspnea, Denies dyspnea on exertion and Denies orthopnea Resp Denies cough, Denies dyspnea and Denies dyspnea on exertion GI Denies hematochezia and Denies change in stool character Musc Denies abnormal gait, Denies muscle cramps, Denies muscle weakness, Denies numbness, Denies radiating pain into limb and Denies tingling Neuro Denies abnormal gait, Denies dizziness, Denies syncope, Denies numbness, Denies tingling and Denies weakness Endo Reports palpitations Physical Exam Vital Signs: Last Vital Signs Pulse 85 04/13/24 11:09 BP 140/68 H 04/13/24 11:09 BMI result Body Mass Index 58.3 Const General: comfortable and no acute distress Orientation/consciousness: patient oriented x3 HEENT Other: Unremarkable Head: Yes normal to inspection Neck Neck: Yes normal visual inspection Chest Chest palpation & inspection: normal inspection of the chest Resp Auscultation: clear to auscultation bilaterally Cardio Palpation: normal PMI Heart sounds: S1 normal heart sound present, S2 normal heart sound present, no gallops, no murmurs and no rubs GI Palpation (GI): Soft to palpation Back/Spine/Pelvis Other: unremarkable Skin General skin exam: no rashes or lesions noted Neuro General: patient oriented x3 Extrem General: Yes normal to inspection Psych Mental Status: mental status grossly normal Office Procedures EKG Details: EKG with underlying sinus rhythm at 85/Min; possible left atrial enlargement; leftward axis; no significant ST-T changes and otherwise unremarkable[place] [id number], Complete Assessment & Plan Assessment & Plan (1) Heart palpitations: Code(s): R00.2 - Palpitations Category: Medical (2) HTN (hypertension): Code(s): I10 - Essential (primary) hypertension Category: Medical (3) Morbid obesity: Code(s): E66.01 - Morbid (severe) obesity due to excess calories Category: Medical Plan Because of morbid obesity, need to evaluate for atrial arrhythmias. We will start with an echocardiogram and Holter for further evaluation. Also with obesity, there is a increased likelihood of obstructive sleep apnea which in turn can lead to cardiac arrhythmias. We can screen this with a home sleep study. Follow-up after the above. Orders: Orders CA echo transthoracic complete Today R00.2 - Palpitations ECG 3 day holter monitor Today R00.2 - Palpitations RT home sleep study Today G47.33 - Obstructive sleep apnea (adult) (pediatric), R00.2 - Palpitations Coding Level of Care Code New Pt Level 4 (05535) Diagnoses Heart palpitations R00.2 HTN (hypertension) I10 Morbid obesity E66.01 CPT Codes EKG - CPT: 17834-Rztgaqomkadgboahq, Complete ([id number])
== END 2024-04-13 11:36 | disposition home or self-care (01) ==
PROVIDERS: PCP Internal Medicine; Visit Provider Internal Medicine
DX: R00.2 Palpitations (principal); I10 Essential (primary) hypertension; E66.01 Morbid (severe) obesity due to excess calories
CPT/HCPCS: 93010; 99204

== ENCOUNTER → 2024-04-13 11:04 | Outpatient (BNVA) | payer OTHER, SELFPAY | PROVIDERS: PCP Internal Medicine; Visit Provider Internal Medicine | DX: R00.2 Palpitations (principal); I10 Essential (primary) hypertension; E66.01 Morbid (severe) obesity due to excess calories; Z68.43 Body mass index [BMI] 50.0-59.9, adult | CPT/HCPCS: 93005 ==

== ENCOUNTER 2024-05-26 10:29 | Outpatient (REF) | payer OTHER, SELFPAY ==
[2024-05-26 11:59] LABS: Estimated Average Glucose 131 mg/dL; Hemoglobin A1C 103.2989 umol/L; Hemoglobin A1c % 6.2 % (<6.0); Total Hemoglobin (HGBA1C) 2308.0929 umol/L
[2024-05-26 12:17] LABS: Alanine Aminotransferase 17 U/L (0-31); Alkaline Phosphatase 84 U/L (39-117); Anion Gap 9 (12-20); Aspartate Amino Transferase 19 U/L (5-31); Bilirubin Total 0.2 mg/dL (0.0-1.0); Blood Urea Nitrogen 10 mg/dL (9-16); Carbon Dioxide 32 mmol/L (22-29); Chloride 104 mmol/L (96-108); Cholesterol 180 mg/dL (<200); Estimated Glomerular Filt Rate > 60; Glucose Random 112 mg/dL (60-115); HDL Cholesterol 52 mg/dL (>40); LDL Cholesterol Calculated 112 mg/dL (<100); Sodium 141 mmol/L (135-145); Total Protein 7.1 g/dL (6.5-8.0); Triglycerides 84 mg/dL (<150)
[2024-05-26 12:20] LABS: Creatinine Urine 156.93 mg/dL; Microalbum/Creatinine Ratio Ur 36.9 ug/mg cr (<30)
== END 2024-05-26 10:30 | disposition home or self-care (01) ==
LOC: HO.LAB 10:29
PROVIDERS: Absent Provider Internal Medicine; PCP Internal Medicine; Visit Provider Internal Medicine
DX: E11.9 Type 2 diabetes mellitus without complications (principal); E78.00 Pure hypercholesterolemia, unspecified; I10 Essential (primary) hypertension; I89.0 Lymphedema, not elsewhere classified; R00.2 Palpitations
CPT/HCPCS: 36415; 80053; 80061; 82043; 82570; 83036

== ENCOUNTER 2024-06-17 19:24 | Emergency (ER) | payer OTHER, SELFPAY ==
--- NOTE | ~2024-06-17 | US_ITS ---
EXAMINATION: US PELVIS CLINICAL INFORMATION: Adnexal mass. COMPARISON: December 19, 2023 TECHNIQUE: Ultrasound of the pelvis is performed using transabdominal transducer along with Doppler. Transvaginal By patient pain. FINDINGS: Uterus: The uterus is anteverted and measures 12.3 x 5 x 6 cm. The double wall endometrial thickness is 1.1 mm. The uterus is smooth in contour and has normal myometrial echogenicity. No visible fibroid. Adnexa: Both ovaries are visualized. There is normal color flow to the adnexa. There is no ovarian torsion. There is no pelvic ascites or fluid collection. Right ovary measures 6.2 x 3.9 x 4.4 cm. There is a 2.4 x 2.5 x 2.9 cm anechoic structure associated with the right ovary. Left ovary measures 7.3 x 6.7 x 9.4 cm. There is a 6.9 x 6.2 x 7.3 cm anechoic structure associated with the left ovary previously measuring 3.7 x 4.6 x 4.3. Flow is demonstrated within both ovaries. US/US pelvic complete IMPRESSION: 1. Interval increase in size of left ovarian cyst now measuring 6.9 x 6.2 x 7.3 cm, previously 3.7 x 4.6 x 4.3 cm. 2. Right ovarian cyst measuring 2.4 x 2.5 x 2.9 cm. Electronically signed by: Raymond Dave MD 06/18/2024 03:21 AM EDT
--- NOTE | ~2024-06-17 | CT_ITS ---
EXAMINATION: CT ABDOMEN AND PELVIS WITHOUT CONTRAST CLINICAL INFORMATION: Flank pain. COMPARISON: None available. TECHNIQUE: Multidetector volumetric imaging was performed from the superior aspect of the liver through the pubic symphysis. Sagittal and coronal reformatted images were obtained on the technologist's workstation. This CT examination was performed using dose optimization techniques as appropriate, variously including the following: *Automated exposure control *Adjustment of mA and/or kV according to patient size (this includes techniques or standardized protocols for targeted exams where dose is matched to indication/reason for exam; i.e. extremities or head) *Use of iterative reconstruction technique DLP: 1138 mGy-cm FINDINGS: LUNG BASES: Motion slightly limits evaluation The visualized lung bases are unremarkable. LIVER, GALLBLADDER, AND BILIARY TREE: The liver is normal in size, shape, and attenuation. No focal hepatic lesion or biliary ductal dilatation is present. The gallbladder is unremarkable with no evidence of radiopaque gallstones, gallbladder wall thickening, or obvious pericholecystic inflammatory changes. PANCREAS: Unremarkable. SPLEEN: Unremarkable. ADRENAL GLANDS: Unremarkable. KIDNEYS AND URETERS: The kidneys are normal in size, shape, and attenuation. No hydronephrosis, hydroureter, or calculi seen. No perinephric stranding. BLADDER: Unremarkable. GASTROINTESTINAL TRACT: The small and large bowel are unremarkable. The appendix is not identified. ABDOMINAL WALL: There is an umbilical region hernia containing fat. LYMPH NODES: Normal. VASCULAR: Unremarkable. PELVIC VISCERA: There is a 7.7 cm low-density structure within the right adnexa. There is a small amount of free fluid within the cul-de-sac as well as in the adnexal regions. There is also minimal fluid along the liver. OSSEOUS STRUCTURES: Moderate L4-[address]/CT abdomen pelvis wo IV con IMPRESSION: 1. There is a 7.7 cm low-density structure in the right adnexa. There is fluid within the pelvis and along the liver. Consider recent cyst rupture. 2. No evidence of renal obstruction or calculi in the urinary tract. 3. The appendix is not identified. 4. Umbilical region hernia containing fat. 5. L4-5 disc degenerative change. Fleischner guidelines were followed. Electronically signed by: Raymond Dave MD 06/18/2024 12:23 AM EDT
--- NOTE | 2024-06-17 20:14 | ED_ITS ---
HPI - Abdominal Pain General Chief Complaint: Abdominal Pain Stated Complaint: abd pain Time Seen by Provider: 06/17/24 21:54 Source: patient Mode of arrival: ambulatory Limitations: no limitations History of Present Illness ED Provider: deborah AVILEZ narrative: . patient with No significant abdominal complaints in the past been having pain in the right upper abdomen and bilateral lower abdomen, pelvis pain for last 3 days with nausea no urinary symptoms was seen at urgent care earlier today found she had a UTI was given Macrobid patient denies any frequency or dysuria or hematuria no history of kidney stone no history of similar pain in the past patient has vomited once no history of gallstones no history of kidney stone in the family patient noted to have fever of 101.1 degrees pain increases on movements and palpation Related Data Home Medications ?Medication ?Instructions ?Recorded ?Confirmed albuterol sulfate 90 mcg/actuation 2 puff inhalation Q6H PRN 10/17/20 04/13/24 aerosol inhaler clobetasol 0.05 % topical ointment 1 appl topical BID 10/17/20 04/13/24 lisinopril 20 tab PO 10/17/20 04/13/24 mg-hydrochlorothiazide 25 mg tablet montelukast 10 mg tablet 10 mg PO DAILY 10/17/20 04/13/24 (Singulair) fluticasone propionate 50 spray intranasal 06/18/24 mcg/actuation nasal spray,suspension Allergies Allergy/AdvReac Type Severity Reaction Status Date / Time shrimp Allergy Severe HIVES Verified 06/17/24 20:17 Review of Systems Review of Systems Yes all other systems are reviewed and are negative PMFSH Past Medical History Medical History HTN (hypertension) Asthma Psoriasis Atopic eczema Surgical History History of tubal ligation Hx of section Family History Family History Father Asthma Cancer Mother Hypertension Sister Hypertension Brother No problems noted. Son No problems noted. Son ADHD Autism Daughter Asthma Eczema Social History Social History Alcohol intake: current Alcohol intake frequency: a few times a month Alcohol type: wine Patient Tobacco Use Status: Former Tobacco user Physical Exam ED Vital Signs: Vital Signs - 24 hr 06/17/24 20:15 06/17/24 22:04 06/17/24 23:22 Temperature 99.9 F 101.0 F H Pulse Rate 110 H 117 H Respiratory Rate 26 H 16 Blood Pressure 136/61 153/71 H Pulse Oximetry 94 94 84 L Oxygen Delivery Method Room Air Room Air Oxygen Flow Rate 06/17/24 23:23 06/17/24 23:44 06/18/24 01:12 Temperature 101.1 F H 99.6 F Pulse Rate 100 106 H Respiratory Rate 20 18 Blood Pressure 130/63 118/55 L Pulse Oximetry 96 96 98 Oxygen Delivery Method Nasal Cannula Nasal Cannula Room Air Oxygen Flow Rate 2 2 06/18/24 01:50 06/18/24 01:54 06/18/24 03:21 Temperature 98.7 F 99.0 F 98.7 F Pulse Rate 90 97 79 Respiratory Rate 20 20 16 Blood Pressure 123/61 102/57 L 113/48 L Pulse Oximetry 98 98 97 Oxygen Delivery Method Nasal Cannula Room Air Room Air Oxygen Flow Rate 2 2 2 06/18/24 06:00 Temperature 98.9 F Pulse Rate 86 Respiratory Rate 18 Blood Pressure 102/49 L Pulse Oximetry 95 Oxygen Delivery Method Room Air Oxygen Flow Rate BMI result Body Mass Index 58.1 Appearance: Alert. Oriented X3. In moderate distress obese patient Eyes: No pallor or icterus ENT: Pharynx normal. Oral Mucosa moist Neck: Normal inspection. Neck supple. CVS: Normal heart rate and rhythm. Pulses normal. Respiratory: No respiratory distress. Equal air entry bilateral, no wheezing/rales/rhonchi Abdomen: Soft and diffuse tenderness with guarding, rebound tenderness++ Bowel sounds are present, no mass palpable, no CVA tenderness Skin: Skin warm and dry. Normal skin color. Normal skin turgor. Extremities: No lower extremity edema. No calf tenderness Neuro: Oriented X 3. No motor deficit. No sensory deficit.No cerebellar signs , cranial nerves II-XII intact Course Course Course Narrative: This is an RME: Additional HPI, ROS, PE not included below will be deferred to primary provider. RME assessment and note performed by: Kim Nunez PA-C This is a 12-rlwi[age]-female, with a hx of HTN, who presents to the ER with complaints of abdominal pain x 3 days. Reports nausea, dizzy, diarrhea. Reports dark stool, no blood. Reports 3 cesearan sections. Reports that she also has had urinary symptoms as well> went to where they diagnosed her with a UTI. Advised charge nurse that patient appears to be uncomfortable and to be brought back to room francisco j. received critical lab of low mag at 1.4 > advised charge nurse. Plan: Labs, UA, further ER eval needed. +/- US, CT > diagnostic imaging deferred to primary provider Medical Decision Making Medical Decision Making MDM Narrative: Patient with diffuse abdominal pain for last 3 days with UTI low-grade fever tender to touch pelvic area no history of ovarian cyst in the past diagnose with UTI was given 1 g of Rocephin in the ER patient's lactic acid level was 2.2 on arrival after fluids decreased to 1.2 initial H&H was 10.1/34.1 repeat H&H in 7 hours was 8.6/29.1. CT scan showed fluid in the pelvic area and behind the liver and 7.7 cm cystic area and right adnexa ultrasound was done which showed right ovarian cyst 2.4 x 2.5x 2.9 cyst and increased left ovarian cyst 6.9 x 6.2 x 7.3 patient is Jehov[employer] Witness does not want any blood products case discussed Dr. Mike our director of global talent who came and saw the patient likely ruptured ovarian cyst with blood in the pelvic area needs laparoscopic management patient refused any blood draw duct in our hospital we do not have any alternating blood products no salvaging of blood available case discussed Dr. Cast at [facility] accepted the patient for transfer for laparoscopic treatment for active pelvic bleed from ovarian cyst Patient received 2 L of IV fluid and 1 g of Rocephin Differential Diagnosis Differential Diagnoses: The differential diagnosis associated with the presentation includes Admission/Observation Consideration of admission/observation: Escalation of care including admission/observation considered Consult Healthcare Provider Management of the patient was discussed with: Supervisor Type Photography Lab Data [facility] Lab Attestation statement: I reviewed the patient's lab results. 06/18/24 05:16 06/18/24 05:16 Labs: Lab Results 06/17/24 06/17/24 06/17/24 Range/Units 20:27 21:41 22:10 WBC 10.7 (4.8-10.8) X10*3/uL RBC 4.84 (4.20-5.50) X10*6/uL Hgb 10.1 L (12.0-16.0) g/dl Hct 34.1 L (37.0-47.0) % MCV 70.5 L (80.0-98.0) fL MCH 20.9 L (27.0-33.0) pg MCHC 29.6 L (31.0-35.0) g/dl RDW 16.6 H (11.0-16.0) % Plt Count 316 D (160-400) X10*3/uL MPV 9.2 L (9.4-12.3) fL Immature Gran % (Auto) 0.5 H (0.0-0.4) % Neut % (Auto) 77.8 H (45-73) % Lymph % (Auto) 17.2 L (20-40) % Weber % (Auto) 3.5 (2-11) % Eos % (Auto) 0.9 (0-4) % Baso % (Auto) 0.1 (0-2) % Lymph # (Auto) 1.9 (1.2-4.9) X10*3/uL Weber # (Auto) 0.4 (0.1-1.2) X10*3/uL Eos # (Auto) 0.1 (0.0-0.4) X10*3/uL Baso # (Auto) 0.0 (0.0-0.2) X10*3/uL Abs Immat Gran (auto) 0.05 H (0.00-0.03) X10*3/uL Absolute Neuts (auto) 8.4 H (2.0-8.3) x10*3/uL Absolute Nucleated RBC 0.000 (0.0-0.012) X10*3/uL Nucleated RBC % (auto) 0.0 (0.0-0.2) /100WBC Sodium 140 (135-145) mmol/L Potassium 3.5 (3.3-5.1) mmol/L Chloride 100 (96-108) mmol/L Carbon Dioxide 30 H (22-29) mmol/L Anion Gap 14 (12-20) BUN 11 (9-16) mg/dL Creatinine 0.76 (0.5-1.4) mg/dL Estim Creat Clear Calc 123.3 Estimated GFR > 60 Random Glucose 157 H (60-115) mg/dL Lactic Acid 2.2 H* (0.5-2.0) mmol/L Lactic Acid F/U @ 2Hr (0.5-2.0) mmol/L Calcium 9.4 (8.4-10.2) mg/dL Magnesium 1.4 L* (1.6-2.6) mg/dL Total Bilirubin 0.3 (0.0-1.0) mg/dL Direct Bilirubin 0.1 (0.0-0.5) mg/dL AST 18 (5-31) U/L ALT 17 (0-31) U/L Alkaline Phosphatase 84 (39-117) U/L Total Protein 7.3 (6.5-8.0) g/dL Albumin 3.9 (3.5-5.0) g/dL Lipase 17 (8-78) U/L Urine Color Christian Urine Appearance Turbid Urine pH 5.0 (5.0-9.0) Ur Specific [place] 1.025 (1.005-1.025) Urine Protein See Note (Neg-Trace) mg/dL Urine Glucose (UA) See Note (Negative) mg/dL Urine Ketones See Note (Negative) mg/dL Urine Blood See Note (Negative) Urine Nitrite See Note (Negative) Ur Leukocyte Esterase See Note (Negative) Urine RBC >20 H (0-2) /HPF Urine WBC >50 H (0-5) /HPF Ur Squamous Epith Cells 11-20 (0-2) /HPF Urine Bacteria 4+ (None Seen) Hyaline Casts 0-2 (0-2) /LPF 06/18/24 06/18/24 06/18/24 Range/Units 00:13 03:20 05:16 WBC 14.7 H (4.8-10.8) X10*3/uL RBC 4.13 L (4.20-5.50) X10*6/uL Hgb 8.6 L 8.5 L (12.0-16.0) g/dl Hct 29.1 L 28.8 L (37.0-47.0) % MCV 69.7 L (80.0-98.0) fL MCH 20.6 L (27.0-33.0) pg MCHC 29.5 L (31.0-35.0) g/dl RDW 16.7 H (11.0-16.0) % Plt Count 257 (160-400) X10*3/uL MPV 8.7 L (9.4-12.3) fL Immature Gran % (Auto) 0.4 (0.0-0.4) % Neut % (Auto) 83.1 H (45-73) % Lymph % (Auto) 10.4 L (20-40) % Weber % (Auto) 5.9 (2-11) % Eos % (Auto) 0.1 (0-4) % Baso % (Auto) 0.1 (0-2) % Lymph # (Auto) 1.5 (1.2-4.9) X10*3/uL Weber # (Auto) 0.9 (0.1-1.2) X10*3/uL Eos # (Auto) 0.0 (0.0-0.4) X10*3/uL Baso # (Auto) 0.0 (0.0-0.2) X10*3/uL Abs Immat Gran (auto) 0.06 H (0.00-0.03) X10*3/uL Absolute Neuts (auto) 12.2 H (2.0-8.3) x10*3/uL Absolute Nucleated RBC 0.000 (0.0-0.012) X10*3/uL Nucleated RBC % (auto) 0.0 (0.0-0.2) /100WBC Sodium 140 (135-145) mmol/L Potassium 3.8 (3.3-5.1) mmol/L Chloride 101 (96-108) mmol/L Carbon Dioxide 29 (22-29) mmol/L Anion Gap 14 (12-20) BUN 14 (9-16) mg/dL Creatinine 0.99 (0.5-1.4) mg/dL Estim Creat Clear Calc 94.6 Estimated GFR > 60 Random Glucose 165 H (60-115) mg/dL Lactic Acid (0.5-2.0) mmol/L Lactic Acid F/U @ 2Hr 1.2 (0.5-2.0) mmol/L Calcium 9.0 (8.4-10.2) mg/dL Magnesium (1.6-2.6) mg/dL Total Bilirubin (0.0-1.0) mg/dL Direct Bilirubin (0.0-0.5) mg/dL AST (5-31) U/L ALT (0-31) U/L Alkaline Phosphatase (39-117) U/L Total Protein (6.5-8.0) g/dL Albumin (3.5-5.0) g/dL Lipase (8-78) U/L Urine Color Urine Appearance Urine pH (5.0-9.0) Ur Specific [place] (1.005-1.025) Urine Protein (Neg-Trace) mg/dL Urine Glucose (UA) (Negative) mg/dL Urine Ketones (Negative) mg/dL Urine Blood (Negative) Urine Nitrite (Negative) Ur Leukocyte Esterase (Negative) Urine RBC (0-2) /HPF Urine WBC (0-5) /HPF Ur Squamous Epith Cells (0-2) /HPF Urine Bacteria (None Seen) Hyaline Casts (0-2) /LPF Independent Interpretation I performed an independent interpretation of an: Ultrasound and CT Scan Radiology Impression Discussion of test interpretation with radiology: I have reviewed the radiologist's reading. Radiologist Impression: [place] [id number] Ultrasound Report Signed Patient: Klarissa Gomez MR#: [id number] : 1975 Acct:[id number] Age/Sex: 48 / F ADM Date: 06/17/24 Loc: .ED Attending Dr: Ordering Physician: Felipe Rock MD Date of Service: 06/18/24 Procedure(s): US pelvic complete Accession Number(s): [id number] cc: Daylin Ruth MD; Felipe Rock MD~ EXAMINATION: US PELVIS CLINICAL INFORMATION: Adnexal mass. COMPARISON: December 19, 2023 TECHNIQUE: Ultrasound of the pelvis is performed using transabdominal transducer along with Doppler. Transvaginal By patient pain. FINDINGS: Uterus: The uterus is anteverted and measures 12.3 x 5 x 6 cm. The double wall endometrial thickness is 1.1 mm. The uterus is smooth in contour and has normal myometrial echogenicity. No visible fibroid. Adnexa: Both ovaries are visualized. There is normal color flow to the adnexa. There is no ovarian torsion. There is no pelvic ascites or fluid collection. Right ovary measures 6.2 x 3.9 x 4.4 cm. There is a 2.4 x 2.5 x 2.9 cm anechoic structure associated with the right ovary. Left ovary measures 7.3 x 6.7 x 9.4 cm. There is a 6.9 x 6.2 x 7.3 cm anechoic structure associated with the left ovary previously measuring 3.7 x 4.6 x 4.3. Flow is demonstrated within both ovaries. US/US pelvic complete IMPRESSION: 1. Interval increase in size of left ovarian cyst now measuring 6.9 x 6.2 x 7.3 cm, previously 3.7 x 4.6 x 4.3 cm. 2. Right ovarian cyst measuring 2.4 x 2.5 x 2.9 cm. Electronically signed by: Raymond Dave MD 06/18/2024 03:21 AM EDT Dictated By: Raymond Dave MD Signed By: <Electronically signed by Raymond Dave MD in OV> 06/18/24 [facility] [place] [id number] [address] Scan Report Signed Patient: Klarissa Gomez MR#: [id number] : 1975 Acct:[id number] Age/Sex: 48 / F ADM Date: 06/17/24 Loc: .ED Attending Dr: Ordering Physician: Felipe Rock MD Date of Service: 06/17/24 Procedure(s): CT abdomen pelvis wo IV con Accession Number(s): [id number] cc: Daylin Ruth MD; Felipe Rock MD~ EXAMINATION: CT ABDOMEN AND PELVIS WITHOUT CONTRAST CLINICAL INFORMATION: Flank pain. COMPARISON: None available. TECHNIQUE: Multidetector volumetric imaging was performed from the superior aspect of the liver through the pubic symphysis. Sagittal and coronal reformatted images were obtained on the technologist's workstation. This CT examination was performed using dose optimization techniques as appropriate, variously including the following: *Automated exposure control *Adjustment of mA and/or kV according to patient size (this includes techniques or standardized protocols for targeted exams where dose is matched to indication/reason for exam; i.e. extremities or head) *Use of iterative reconstruction technique DLP: 1138 mGy-cm FINDINGS: LUNG BASES: Motion slightly limits evaluation The visualized lung bases are unremarkable. LIVER, GALLBLADDER, AND BILIARY TREE: The liver is normal in size, shape, and attenuation. No focal hepatic lesion or biliary ductal dilatation is present. The gallbladder is unremarkable with no evidence of radiopaque gallstones, gallbladder wall thickening, or obvious pericholecystic inflammatory changes. PANCREAS: Unremarkable. SPLEEN: Unremarkable. ADRENAL GLANDS: Unremarkable. KIDNEYS AND URETERS: The kidneys are normal in size, shape, and attenuation. No hydronephrosis, hydroureter, or calculi seen. No perinephric stranding. BLADDER: Unremarkable. GASTROINTESTINAL TRACT: The small and large bowel are unremarkable. The appendix is not identified. ABDOMINAL WALL: There is an umbilical region hernia containing fat. LYMPH NODES: Normal. VASCULAR: Unremarkable. PELVIC VISCERA: There is a 7.7 cm low-density structure within the right adnexa. There is a small amount of free fluid within the cul-de-sac as well as in the adnexal regions. There is also minimal fluid along the liver. OSSEOUS STRUCTURES: Moderate L4-[address]/CT abdomen pelvis wo IV con IMPRESSION: 1. There is a 7.7 cm low-density structure in the right adnexa. There is fluid within the pelvis and along the liver. Consider recent cyst rupture. 2. No evidence of renal obstruction or calculi in the urinary tract. 3. The appendix is not identified. 4. Umbilical region hernia containing fat. 5. L4-5 disc degenerative change. Fleischner guidelines were followed. Electronically signed by: Raymond Dave MD 06/18/2024 12:23 AM EDT Dictated By: Raymond Dave MD Signed By: <Electronically signed by Raymond Dave MD in OV> 06/18/24 0023 DD/ TD/TT: 06/17/24 230 [employer]: Medications Administered Discontinued Medications Generic Name Dose Route Start Last Admin Trade Name Freq PRN Reason Stop Dose Admin Acetaminophen 650 mg 06/17/24 23:48 06/18/24 00:15 Acetaminophen 325 Mg Tablet PO 06/17/24 23:49 650 mg ONCE ONE Administration Ceftriaxone Sodium 1 gm 06/17/24 22:22 06/17/24 22:55 Ceftriaxone Sodium 1 Gm Vial IVPUSH 06/17/24 22:23 1 gm ONCE ONE Administration Enoxaparin Sodium 40 mg 06/18/24 03:45 06/18/24 04:51 Enoxaparin Sodium 40 Mg/0.4 Ml Syringe SUBCUT Not Given Q24H LUIS MANUEL Sodium Chloride 1,000 mls @ 999 mls/hr 06/17/24 22:19 06/18/24 01:08 Ns IV 06/17/24 23:19 Infused .Q1H1M ONE Infusion Magnesium Sulfate 2 gm in 50 mls @ 25 mls/hr 06/17/24 22:25 06/18/24 01:08 Magnesium Sulfate/H2o IV 06/18/24 00:24 Infused ONCE ONE Infusion Sodium Chloride 1,000 mls @ 999 mls/hr 06/18/24 06:38 06/18/24 06:41 Ns IV 06/18/24 07:38 999 mls/hr .Q1H1M ONE Administration Ketorolac Tromethamine 30 mg 06/17/24 22:19 06/17/24 22:55 Ketorolac Tromethamine 30 Mg/Ml Vial IVPUSH 06/17/24 22:20 30 mg ONCE ONE Administration Morphine Sulfate 2 mg 06/18/24 03:35 06/18/24 04:37 Morphine Sulfate 4 Mg/Ml Cartridge IVPUSH 2 mg Q4H PRN Administration Pain, Severe (Pain Scale 7-10) Protocol Ondansetron HCl 4 mg 06/17/24 22:20 06/17/24 22:55 Ondansetron Hcl 4 Mg/2 Ml Vial IVPUSH 06/17/24 22:21 4 mg ONCE ONE Administration Critical Care Time Critical Care Time Critical Care Time: Yes Total Critical Care Time: 90 Attestation: The patient was critically ill with a high probability of imminent or life threatening deterioration. I spent greater than 100?minutes of discontinuous time evaluating the patient,delivering critical care at the bedside, discussing and evaluating pertinent data with consultants. Critical care time does not include time spent performing separately billable procedures or teaching. Total time spent performing critical care was 90???minutes. Discharge Plan Discharge Clinical Impression: Ruptured ovarian cyst, Peritoneal hemorrhage Patient Disposition: [facility] Hospital Transfer Details: [facility] CEM Cast Prescriptions: No Action fluticasone propionate 50 mcg/actuation spray,suspension intranasal albuterol sulfate 90 mcg/actuation HFA aerosol inhaler 2 puff inhalation Q6H PRN montelukast [Singulair] 10 mg tablet 10 mg PO DAILY lisinopril-hydrochlorothiazide 20-25 mg tablet PO clobetasol 0.05 % ointment 1 appl topical BID Discharge Date/Time: 06/18/24 07:00 Print Language: Finnish
[2024-06-17 20:15] VITALS: BP 136/61; PULSE 110; RESP 26; TEMP 37.7; O2SAT 94; BMI 58.1
--- NOTE | 2024-06-17 20:19 | ECG_ITS ---
Test Reason : ABD PAIN Blood Pressure : / mmHG Vent. Rate : 108 BPM Atrial Rate : 108 BPM P-R Int : 140 ms QRS Dur : 088 ms QT Int : 336 ms P-R-T Axes : 036 -30 071 degrees QTc Int : 450 ms Sinus tachycardia Left axis deviation Minimal voltage criteria for LVH, may be normal variant ( [place] product ) Nonspecific ST abnormality Abnormal ECG When compared with ECG of 17-JUN-2023 08:25, No significant change was found Referred By: Kim Nunez Electronically Signed By:Kel Noel
[2024-06-17 20:35] LABS: MANUAL DIFF FLAG NO
[2024-06-17 20:37] LABS: Basophils Percent Auto 0.1 % (0-2); Eosinophils Absolute Auto 0.1 X10*3/uL (0.0-0.4); Eosinophils Percent Auto 0.9 % (0-4); Hematocrit 34.1 % (37.0-47.0); Hemoglobin 10.1 g/dl (12.0-16.0); Imm Gran Abs Auto 0.05 X10*3/uL (0.00-0.03); Imm Gran Pct Auto 0.5 % (0.0-0.4); Lymphocytes Absolute Auto 1.9 X10*3/uL (1.2-4.9); Lymphocytes Percent Auto 17.2 % (20-40); Mean Corpuscular HGB Conc 29.6 g/dl (31.0-35.0); Mean Corpuscular Hemoglobin 20.9 pg (27.0-33.0); Mean Corpuscular Volume 70.5 fL (80.0-98.0); Mean Platelet Volume 9.2 fL (9.4-12.3); Monocytes Absolute Auto 0.4 X10*3/uL (0.1-1.2); Monocytes Percent Auto 3.5 % (2-11); Neutrophils Absolute Auto 8.4 x10*3/uL (2.0-8.3); Neutrophils Percent Auto 77.8 % (45-73); Platelet Count 316 X10*3/uL (160-400); Red Blood Count 4.84 X10*6/uL (4.20-5.50); Red Cell Distribution Width 16.6 % (11.0-16.0); White Blood Count 10.7 X10*3/uL (4.8-10.8)
[2024-06-17 20:56] LABS: Alanine Aminotransferase 17 U/L (0-31); Albumin Level 3.9 g/dL (3.5-5.0); Alkaline Phosphatase 84 U/L (39-117); Anion Gap 14 (12-20); Aspartate Amino Transferase 18 U/L (5-31); Bilirubin Direct 0.1 mg/dL (0.0-0.5); Bilirubin Total 0.3 mg/dL (0.0-1.0); Blood Urea Nitrogen 11 mg/dL (9-16); Calcium 9.4 mg/dL (8.4-10.2); Carbon Dioxide 30 mmol/L (22-29); Chloride 100 mmol/L (96-108); Creatinine Clr Calc Pharmacy 123.3; Estimated Glomerular Filt Rate > 60; Glucose Random 157 mg/dL (60-115); Lipase 17 U/L (8-78); Magnesium 1.4 mg/dL (1.6-2.6); Potassium 3.5 mmol/L (3.3-5.1); Sodium 140 mmol/L (135-145); Total Protein 7.3 g/dL (6.5-8.0)
--- NOTE | 2024-06-17 21:48 | PC.NURSE ---
Patient providing urine specimen at this time.
[2024-06-17 22:04] VITALS: BP 153/71; PULSE 117; RESP 16; TEMP 38.3; O2SAT 94
[2024-06-17 22:19] LABS: Lactic Acid 2.2 mmol/L (0.5-2.0)
[2024-06-17 22:28] LABS: Appearance Urine Turbid; Color Urine Orange; Specific Gravity - Urine 1.025 (1.005-1.025); UMIC TRIGGER UACC YES
[2024-06-17 22:51] LABS: Bacteria Urine 4+ (None Seen); Hyaline Casts Urine 0-2 /LPF (0-2); RBC Urine >20 /HPF (0-2); UACC Culture Trigger YES; WBC Urine >50 /HPF (0-5)
[2024-06-17] MEDS: 0.9 % Sodium Chloride 1,000 ML 999 ML IV (22:54)
[2024-06-17] MEDS: ondansetron HCL 4 MG/2 ML VIAL IVPUSH (22:55)
[2024-06-17] MEDS: cefTRIAXone sodium 1 GM VIAL IVPUSH (22:55)
[2024-06-17] MEDS: Ketorolac Tromethamine 30 MG/ML VIAL IVPUSH (22:55)
[2024-06-17] MEDS: Magnesium Sulfate/H2O 2 GM/50 ML PIGGYBACK IV (22:55)
--- NOTE | 2024-06-17 23:15 | PC.NURSE ---
received report from Che AMBROCIO, assume care of pt at this time
[2024-06-17 23:22] VITALS: O2SAT 84
[2024-06-17 23:23] VITALS: O2SAT 96
--- NOTE | 2024-06-17 23:28 | PC.NURSE ---
into room to see pt, pt is 84 on RA, pt placed on O2/2L/NC. Pt sats up to 95%
[2024-06-17 23:44] VITALS: BP 130/63; PULSE 100; RESP 20; TEMP 38.4; O2SAT 96
[2024-06-17 23:47] LABS: Reflex Lactate? Lactic Acid Added
--- NOTE | 2024-06-18 | ECG_ITS ---
Test Reason : PVC Blood Pressure : / mmHG Vent. Rate : 092 BPM Atrial Rate : 092 BPM P-R Int : 158 ms QRS Dur : 096 ms QT Int : 394 ms P-R-T Axes : 068 -20 060 degrees QTc Int : 487 ms Sinus rhythm with frequent Premature ventricular complexes Possible Left atrial enlargement Minimal voltage criteria for LVH, may be normal variant ( [place] product ) Prolonged QT Abnormal ECG When compared with ECG of 17-JUN-2024 20:17, Premature ventricular complexes are now Present Referred By: Felipe Rock Electronically Signed By:Kel Noel
[2024-06-18] MEDS: Acetaminophen 325 MG TABLET 650 MG PO (00:15)
[2024-06-18 00:27] LABS: ~Lactic Acid-LAB USE ONLY 1.2 mmol/L (0.5-2.0)
[2024-06-18 01:12] VITALS: BP 118/55; PULSE 106; RESP 18; TEMP 37.6; O2SAT 98
[2024-06-18 01:50] VITALS: BP 123/61; PULSE 90; RESP 20; TEMP 37.1; O2SAT 98
[2024-06-18 01:54] VITALS: BP 102/57; PULSE 97; RESP 20; TEMP 37.2; O2SAT 98
[2024-06-18 03:21] VITALS: BP 113/48; PULSE 79; RESP 16; TEMP 37.1; O2SAT 97
--- NOTE | 2024-06-18 03:22 | MHC.EDTECH ---
Patient vitals taken ,repeated labs drawn and sent to lab ,And Patient belongings list done .
[2024-06-18 03:25] LABS: Hematocrit 29.1 % (37.0-47.0); Hemoglobin 8.6 g/dl (12.0-16.0)
--- NOTE | 2024-06-18 03:43 | PC.NURSE ---
pt refuses to have type and screen, pt states, I don't want anyone's else blood informed Dr Rock
[2024-06-18] MEDS: Morphine Sulfate 4 MG/ML CARTRIDGE 2 MG IVPUSH (04:37)
--- NOTE | 2024-06-18 04:59 | PM.GYNCN ---
FENCE REPAIRMAN - CN: HPI Data of Consult Consult date: 06/18/24 Primary Care Provider: Daylin Ruth MD Consult Narrative Narrative: I was consulte on ravinder Gomez who is a 48 year old female presented to the ER with history of right upper abdomen and lower abdomen for last 3 days with nausea. thepau strated acutely and has been getting worse over time. No vaginal discharge or bleeding. The patient is Orthodoxy and does not accept any blood products. On arrival H&H = 10.1/31.4 3:20 am H&H= 8.6/29.1 5:16 am H&H= 8.5/28.8 cc:: CC: OB REPLACED BY [facility] Past Medical History Medical History HTN (hypertension) Asthma Psoriasis Atopic eczema Family History Family History Father Asthma Cancer Mother Hypertension Sister Hypertension Brother No problems noted. Son No problems noted. Son ADHD Autism Daughter Asthma Eczema Surgical History Surgical History History of tubal ligation Hx of section Social History Social History Alcohol intake: current Alcohol intake frequency: a few times a month Alcohol type: wine Patient Tobacco Use Status: Former Tobacco user Smoked in Last 30 Days: No Use of substances other than those prescribed or required for medical reasons: No Advance Directives: No Advance Directives Information Provided: No Do you have a plan to hurt others: No Plan Patient : No Meds Allergies Allergy/AdvReac Type Severity Reaction Status Date / Time shrimp Allergy Severe HIVES Verified 06/17/24 20:17 Active Medications: Current Medications Acetaminophen (Acetaminophen 325 Mg Tablet) 650 mg PO Q6H PRN PRN Reason: Pain, Mild (Pain Scale 1-3), fever or headache Calcium Carbonate (Calcium Carbonate 750 Mg Tab.Chew) 750 mg PO Q4H PRN PRN Reason: Heartburn Ceftriaxone Sodium (Ceftriaxone Sodium 1 Gm Vial) 1 gm IVPUSH Q24H LUIS MANUEL Magnesium Hydroxide (Milk Of Magnesia 30 Ml Oral.Susp) 30 ml PO DAILY PRN PRN Reason: Constipation Melatonin (Melatonin 3 Mg Tablet) 6 mg PO BEDTIME PRN PRN Reason: Insomnia Morphine Sulfate (Morphine Sulfate 4 Mg/Ml Cartridge) 2 mg IVPUSH Q4H PRN; Protocol PRN Reason: Pain, Severe (Pain Scale 7-10) Last Admin: 06/18/24 04:37 Dose: 2 mg Ondansetron HCl (Ondansetron Hcl 4 Mg/2 Ml Vial) 4 mg IVPUSH Q8H PRN PRN Reason: Nausea and Vomiting Sodium Chloride (0.9 % Sodium Chloride Flush 3 Ml Syringe) [facility] Medications ?Medication ?Instructions ?Recorded ?Confirmed ?Last Taken ?Type albuterol sulfate 90 mcg/actuation 2 puff inhalation Q6H PRN 10/17/20 04/13/24 Unknown History aerosol inhaler clobetasol 0.05 % topical ointment 1 appl topical BID 10/17/20 04/13/24 Unknown History lisinopril 20 tab PO 10/17/20 04/13/24 Unknown History mg-hydrochlorothiazide 25 mg tablet montelukast 10 mg tablet 10 mg PO DAILY 10/17/20 04/13/24 Unknown History (Renzoir) FENCE REPAIRMAN Physical Exam Vitals Vital signs: Temp Pulse Resp BP Pulse Ox O2 Del Method O2 Flow Rate 98.7 F 79 16 113/48 L 97 Room Air 2 06/18/24 03:21 06/18/24 03:21 06/18/24 03:21 06/18/24 03:21 06/18/24 03:21 06/18/24 03:21 06/18/24 03:21 BMI result Body Mass Index 58.1 Abdomen Auscultation/Inspection/Palpation: Normal bowel sounds, Soft and Tenderness FENCE REPAIRMAN - Results Labs 06/18/24 03:20 06/17/24 20:27 Labs: Short CBC 06/17/24 06/18/24 Range/Units 20:27 03:20 WBC 10.7 (4.8-10.8) X10*3/uL Hgb 10.1 L 8.6 L (12.0-16.0) g/dl Hct 34.1 L 29.1 L (37.0-47.0) % Plt Count 316 D (160-400) X10*3/uL BMP 06/17/24 20:27 Sodium 140 Potassium 3.5 Chloride 100 Carbon Dioxide 30 H BUN 11 Creatinine 0.76 Calcium 9.4 Liver Function 06/17/24 Range/Units 20:27 Total Bilirubin 0.3 (0.0-1.0) mg/dL Direct Bilirubin 0.1 (0.0-0.5) mg/dL AST 18 (5-31) U/L ALT 17 (0-31) U/L Alkaline Phosphatase 84 (39-117) U/L Albumin 3.9 (3.5-5.0) g/dL Urine 06/17/24 Range/Units 22:10 Urine Color [place] Urine Appearance Turbid Urine pH 5.0 (5.0-9.0) Ur Specific [place] 1.025 (1.005-1.025) Urine Protein See Note (Neg-Trace) mg/dL Urine Glucose (UA) See Note (Negative) mg/dL Imaging CT scan - pelvis: Radiologist's impression: ITS Impressions Abdomen/Pelvis CT 06/17/24 22:33 IMPRESSION: 1. There is a 7.7 cm low-density structure in the right adnexa. There is fluid within the pelvis and along the liver. Consider recent cyst rupture. 2. No evidence of renal obstruction or calculi in the urinary tract. 3. The appendix is not identified. 4. Umbilical region hernia containing fat. 5. L4-5 disc degenerative change. Fleischner guidelines were followed. Electronically signed by: Raymond Dave MD 06/18/2024 12:23 AM EDT Pelvis Ultrasound 06/18/24 01:45 IMPRESSION: 1. Interval increase in size of left ovarian cyst now measuring 6.9 x 6.2 x 7.3 cm, previously 3.7 x 4.6 x 4.3 cm. 2. Right ovarian cyst measuring 2.4 x 2.5 x 2.9 cm. Electronically signed by: Raymond Dave MD 06/18/2024 03:21 AM EDT Assessment and Plan (1) Ruptured ovarian cyst: Status: Acute Since the patient has ruptured ovarian cyst with intra-abdominal bleed and a decrese in her H and H , recommended laparoscopic ovarian cystectomy and evacuation of hemoperitoneum. Given the fact that the patient is Sikh and does not receive any blood products, this will put the patient at a higher risk for perioperative mortality and morbidity. Since the patient is hemodynamically stable at the moment, recommend transfer to a tertiary care center, [facility], where more resources are available for bloodless medicine, intraoperative minimally invasive surgeries to minimize blood loss and other resources in the perioperative period for this patient's management in an effort to lower her risk. All questions answered, the patient verbalized understanding agreed with the plan. Discussed the case with Dr. Merlos who will initiate the transfer.
[2024-06-18 05:20] LABS: MANUAL DIFF FLAG NO
[2024-06-18 05:21] LABS: Basophils Percent Auto 0.1 % (0-2); Eosinophils Percent Auto 0.1 % (0-4); Hematocrit 28.8 % (37.0-47.0); Hemoglobin 8.5 g/dl (12.0-16.0); Imm Gran Abs Auto 0.06 X10*3/uL (0.00-0.03); Imm Gran Pct Auto 0.4 % (0.0-0.4); Lymphocytes Absolute Auto 1.5 X10*3/uL (1.2-4.9); Lymphocytes Percent Auto 10.4 % (20-40); Mean Corpuscular HGB Conc 29.5 g/dl (31.0-35.0); Mean Corpuscular Hemoglobin 20.6 pg (27.0-33.0); Mean Corpuscular Volume 69.7 fL (80.0-98.0); Mean Platelet Volume 8.7 fL (9.4-12.3); Monocytes Absolute Auto 0.9 X10*3/uL (0.1-1.2); Monocytes Percent Auto 5.9 % (2-11); Neutrophils Absolute Auto 12.2 x10*3/uL (2.0-8.3); Neutrophils Percent Auto 83.1 % (45-73); Platelet Count 257 X10*3/uL (160-400); Red Blood Count 4.13 X10*6/uL (4.20-5.50); Red Cell Distribution Width 16.7 % (11.0-16.0); White Blood Count 14.7 X10*3/uL (4.8-10.8)
[2024-06-18 05:35] LABS: Anion Gap 14 (12-20); Blood Urea Nitrogen 14 mg/dL (9-16); Carbon Dioxide 29 mmol/L (22-29); Chloride 101 mmol/L (96-108); Creatinine Clr Calc Pharmacy 94.6; Estimated Glomerular Filt Rate > 60; Glucose Random 165 mg/dL (60-115); Potassium 3.8 mmol/L (3.3-5.1); Sodium 140 mmol/L (135-145)
[2024-06-18 06:00] VITALS: BP 102/49; PULSE 86; RESP 18; TEMP 37.2; O2SAT 95
[2024-06-18] MEDS: 0.9 % Sodium Chloride 1,000 ML 999 ML IV (06:41)
--- NOTE | 2024-06-18 06:58 | PC.NURSE ---
Report to Anabel AMBROCIO, AT [facility]. Waiting on eMS for transfer
--- NOTE | 2024-06-18 07:05 | PC.NURSE ---
report to Margy AMBROCIO
== END 2024-06-18 07:00 | disposition short-term general hospital (02) ==
PROVIDERS: Physician Assistant Medical; Student in an Organized Health Care Education/Training Program; Emergency Provider Internal Medicine; PCP Internal Medicine
DX: N83.202 Unspecified ovarian cyst, left side (principal); K66.1 Hemoperitoneum; N83.201 Unspecified ovarian cyst, right side; R10.11 Right upper quadrant pain; R50.9 Fever, unspecified; I10 Essential (primary) hypertension; J45.909 Unspecified asthma, uncomplicated; Z87.891 Personal history of nicotine dependence
CPT/HCPCS: 36415; 74176; 76856; 80048; 80076; 81001; 83605; 83690; 83735; 85014; 85018; 85025; 87040; 87086; 93005; 96361; 96374; 96375; 99285; J0696; J1885; J2270; J2405; J3475

== ENCOUNTER → 2024-06-17 20:19 | Outpatient (BNV) | payer OTHER, SELFPAY | PROVIDERS: Emergency Provider Internal Medicine; PCP Internal Medicine; Visit Provider Internal Medicine Cardiovascular Disease | DX: R94.31 Abnormal electrocardiogram [ECG] [EKG] (principal) | CPT/HCPCS: 93010 ==

== ENCOUNTER → 2024-06-17 20:29 | Outpatient (BNV) | payer OTHER, SELFPAY | PROVIDERS: Emergency Provider Internal Medicine; PCP Internal Medicine; Visit Provider Obstetrics & Gynecology | DX: N83.209 Unspecified ovarian cyst, unspecified side (principal) | CPT/HCPCS: 99283 ==

== ENCOUNTER → 2024-06-18 01:37 | Outpatient (BNV) | payer OTHER, SELFPAY | PROVIDERS: Emergency Provider Internal Medicine; PCP Internal Medicine; Visit Provider Internal Medicine Cardiovascular Disease | DX: R94.31 Abnormal electrocardiogram [ECG] [EKG] (principal) | CPT/HCPCS: 93010 ==

== ENCOUNTER 2024-11-25 09:04 | Emergency (ER) | payer OTHER, SELFPAY ==
--- NOTE | ~2024-11-25 | CT_ITS ---
EXAMINATION: CT ABDOMEN PELVIS WITH IV CONTRAST HISTORY: diffuse tenderness COMPARISON: Comparison is made with the prior examination dated 06/17/2024. TECHNIQUE: CT scan of the abdomen and pelvis was performed following administration of 85 mL Omnipaque 350 using standard departmental protocol. Coronal and sagittal reformatted images were generated and reviewed. Oral contrast material was not administered at the request of the referring physician. This CT exam was performed with one or more of the following dose reduction techniques: automated exposure control, adjustment of the mA and/or kV according to patient size, use of iterative reconstruction technique. DLP: 850 mGy-cm FINDINGS: LOWER CHEST: The visualized lung bases are clear. There is no pleural effusion. CARDIOVASCULATURE: The heart is normal in size. There is no pericardial effusion. LIVER: The liver is normal in size and contour. No liver mass is identified. The hepatic and portal veins are patent. GALLBLADDER / BILE DUCTS: The gallbladder is unremarkable. There is no intra or extrahepatic biliary ductal dilatation. SPLEEN: The spleen is normal in size. No focal splenic lesion is identified. PANCREAS: The pancreas is unremarkable in appearance. ADRENAL GLANDS: Within normal limits. KIDNEYS/RETROPERITONEUM: No renal calculi are identified. There is no hydronephrosis. No renal masses are identified. LYMPH NODES: No abdominal or pelvic lymphadenopathy. VASCULATURE: The abdominal aorta is normal in caliber. And IVC filter is seen in place. MESENTERY/PERITONEUM: No free fluid. No masses. There is no free intraperitoneal gas. STOMACH: The stomach is collapsed, limiting evaluation. SMALL BOWEL: The small bowel is normal in caliber. COLON: There is a large amount of stool throughout the colon. APPENDIX: Normal. URINARY BLADDER/PELVIC ORGANS: The urinary bladder is collapsed, limiting evaluation. The uterus and ovaries are unremarkable. BONES / SOFT TISSUES: There are postsurgical changes involving the anterior abdominal wall. There is degenerative disc disease at the L5-S1 level. CT/CT abdomen pelvis w IV con IMPRESSION: Large amount of stool throughout the colon. No inflammatory process is identified. Electronically signed by: Quique Parra MD 11/25/2024 03:17 PM EDT
--- NOTE | ~2024-11-25 | US_ITS ---
EXAMINATION: ULTRASOUND PELVIC AND OVARIAN DOPPLER. CLINICAL INFORMATION: Right lower quadrant pain. History of ovarian cyst. TECHNIQUE: Transabdominal and transvaginal pelvic ultrasound performed using grayscale and color Doppler technique. COMPARISON: June 18, 2024. FINDINGS: Uterus measures 10 x 5 x 6 cm. Volume: 146 cc. Anteversion flexion position with normal morphology and echotexture. The cervix demonstrates a 3 mm hyperechoic lesion. The endocervical canal is closed. Small Nabothian cyst. Endometrial stripe measures 2 mm. There is a 2.0 cm isoechoic nodular abnormality in the fundus/body junction of the uterus. Right ovary is not identified. Left ovary measures 3 x 3 x 3 cm with a volume: 15 cc. There is a 1.5 cm anechoic lesion without septations or flow on color Doppler interrogation. There is flow on color Doppler interrogation to the left ovary. No free fluid in the cul-de-sac. US/US pelvic and transvaginal IMPRESSION: Right ovary is not identified. Left ovary demonstrates a 1.5 cm cystic structure likely dominant follicle without ovarian torsion. Probable 2 cm uterine fibroid. Questionable punctate calcification in the cervix. Electronically signed by: Tera Hastings MD 11/25/2024 12:05 PM EDT
--- NOTE | ~2024-11-25 | US_ITS ---
EXAMINATION: ULTRASOUND PELVIC AND OVARIAN DOPPLER. CLINICAL INFORMATION: Right lower quadrant pain. History of ovarian cyst. TECHNIQUE: Transabdominal and transvaginal pelvic ultrasound performed using grayscale and color Doppler technique. COMPARISON: June 18, 2024. FINDINGS: Uterus measures 10 x 5 x 6 cm. Volume: 146 cc. Anteversion flexion position with normal morphology and echotexture. The cervix demonstrates a 3 mm hyperechoic lesion. The endocervical canal is closed. Small Nabothian cyst. Endometrial stripe measures 2 mm. There is a 2.0 cm isoechoic nodular abnormality in the fundus/body junction of the uterus. Right ovary is not identified. Left ovary measures 3 x 3 x 3 cm with a volume: 15 cc. There is a 1.5 cm anechoic lesion without septations or flow on color Doppler interrogation. There is flow on color Doppler interrogation to the left ovary. No free fluid in the cul-de-sac. US/US pelvic ovarian doppler IMPRESSION: Right ovary is not identified. Left ovary demonstrates a 1.5 cm cystic structure likely dominant follicle without ovarian torsion. Probable 2 cm uterine fibroid. Questionable punctate calcification in the cervix. Electronically signed by: Tera Hastings MD 11/25/2024 12:05 PM EDT
[2024-11-25 09:15] VITALS: BP 145/70; PULSE 71; RESP 20; TEMP 36.4; O2SAT 99; BMI 49.9
[2024-11-25 09:41] LABS: MANUAL DIFF FLAG NO
[2024-11-25 09:42] LABS: Basophils Percent Auto 0.4 % (0-2); Eosinophils Absolute Auto 0.2 X10*3/uL (0.0-0.4); Eosinophils Percent Auto 2.5 % (0-4); Hematocrit 36.3 % (37.0-47.0); Hemoglobin 11.6 g/dl (12.0-16.0); Imm Gran Abs Auto 0.02 X10*3/uL (0.00-0.03); Imm Gran Pct Auto 0.3 % (0.0-0.4); Lymphocytes Absolute Auto 3.1 X10*3/uL (1.2-4.9); Lymphocytes Percent Auto 41.7 % (20-40); Mean Corpuscular Hemoglobin 24.5 pg (27.0-33.0); Mean Corpuscular Volume 76.7 fL (80.0-98.0); Mean Platelet Volume 9.9 fL (9.4-12.3); Monocytes Absolute Auto 0.5 X10*3/uL (0.1-1.2); Monocytes Percent Auto 6.3 % (2-11); Neutrophils Absolute Auto 3.6 x10*3/uL (2.0-8.3); Neutrophils Percent Auto 48.8 % (45-73); Platelet Count 247 X10*3/uL (160-400); Red Blood Count 4.73 X10*6/uL (4.20-5.50); Red Cell Distribution Width 15.1 % (11.0-16.0); White Blood Count 7.3 X10*3/uL (4.8-10.8)
[2024-11-25 09:43] LABS: Appearance Urine Clear; Color Urine Yellow; Glucose Urine UA Negative (Negative); Leukocyte Esterase Urine Negative (Negative); Nitrite Urine Negative (Negative); Specific Gravity - Urine >= 1.030 (1.005-1.025); Urine Blood Negative (Negative); Urine Ketones Negative (Negative); Urine Protein Negative (Neg-Trace)
[2024-11-25 09:59] LABS: Alanine Aminotransferase 16 U/L (0-31); Albumin Level 4.2 g/dL (3.5-5.0); Alkaline Phosphatase 80 U/L (39-117); Anion Gap 12 (12-20); Aspartate Amino Transferase 18 U/L (5-31); Bilirubin Total 0.2 mg/dL (0.0-1.0); Blood Urea Nitrogen 22 mg/dL (9-16); Calcium 9.7 mg/dL (8.4-10.2); Carbon Dioxide 29 mmol/L (22-29); Chloride 106 mmol/L (96-108); Creatinine Clr Calc Pharmacy 106.4; Estimated Glomerular Filt Rate > 60; Glucose Random 118 mg/dL (60-115); Magnesium 1.9 mg/dL (1.6-2.6); Potassium 3.4 mmol/L (3.3-5.1); Sodium 144 mmol/L (135-145); Total Protein 7.5 g/dL (6.5-8.0)
--- NOTE | 2024-11-25 10:43 | ED_ITS ---
HPI - General Adult General Chief complaint: Abdominal Pain Stated complaint: Right Side Pain after Surgery Time Seen by Provider: 11/25/24 10:25 Source: patient, RN notes reviewed, old records reviewed and other Mode of arrival: ambulatory Limitations: no limitations History of Present Illness ED Provider: Rach HPI narrative: Patient is a 49-year-old female with history of T2 DM, HTN, obesity, ruptured hemorrhagic cyst with hemoperitoneum s/p diagnostic laparoscopy complicated by ileus and subsegmental PEs with DVTs s/p IVC filter placement, currently on Eliquis, recovery was further complicated by intraabdominal abcess collection s/p IR guided drainage, s/p exlap, CORTES, abdominal washout, and placement of pelvis drains in June 2024, repeat outpatient CT A/P in July 2024 showed new 6.3cm subcutaneous collection, underwent successful IR guided drainage on 08/12/2025 draining 20 mL purulent fluid and placement of drain. Patient presents today complaining of generalized abdominal pain which began at 4am yesterday and woke her from sleep. Denies vaginal bleeding or other abnormal discharge. Denies fevers. Denies nausea, vomiting, diarrhea, constipation. Denies urinary symptoms. Denies dizziness or lightheadedness. States that she called her PCP and was advised to present to the ED for evaluation. MD complaint: abdominal pain Onset (ago): day(s) Location: abdomen Severity: severe Quality: aching Pain Consistency: constant Associated symptoms: denies other symptoms Treatments prior to arrival: none Related Data Home Medications ?Medication ?Instructions ?Recorded ?Confirmed albuterol sulfate 90 mcg/actuation 2 puff inhalation Q6H PRN 10/17/20 04/13/24 aerosol inhaler clobetasol 0.05 % topical ointment 1 appl topical BID 10/17/20 04/13/24 lisinopril 20 tab PO 10/17/20 04/13/24 mg-hydrochlorothiazide 25 mg tablet montelukast 10 mg tablet 10 mg PO DAILY 10/17/20 04/13/24 (Singulair) fluticasone propionate 50 spray intranasal 06/18/24 mcg/actuation nasal spray,suspension Previous Rx's ?Medication ?Instructions ?Recorded polyethylene glycol 3350 17 17 g PO DAILY #119 grams 11/25/24 gram/dose oral powder (Miralax) sennosides 8.6 mg-docusate sodium 1 tab-cap PO BEDTIME #14 tabs 11/25/24 50 mg tablet Allergies Allergy/AdvReac Type Severity Reaction Status Date / Time shrimp Allergy Severe HIVES Verified 11/25/24 09:19 Review of Systems 2 Review of Systems: As per HPI. Yes all other systems are reviewed and are negative Constitutional: Constitutional: Reports as per HPI [facility] Past Medical History Medical History HTN (hypertension) Asthma Psoriasis Atopic eczema Surgical History History of tubal ligation Hx of section Family History Family History Father Asthma Cancer Mother Hypertension Sister Hypertension Brother No problems noted. Son No problems noted. Son ADHD Autism Daughter Asthma Eczema Social History Social History Alcohol intake: current Alcohol intake frequency: a few times a month Alcohol type: wine Patient Tobacco Use Status: Former Tobacco user Advance Directives: No Advance Directives Information Provided: Yes Do you have a plan to hurt others: No Plan Physical Exam ED Vital Signs: Vital Signs - 24 hr 11/25/24 09:15 Temperature 97.5 F Pulse Rate 71 Respiratory Rate 20 Blood Pressure 145/70 H Pulse Oximetry 99 Oxygen Delivery Method Room Air BMI result Body Mass Index 49.9 Vital signs have been reviewed and appear to be correct. Blood pressure normal. Heart rate normal. Respiratory rate normal. Temperature normal. Oxygen saturation normal. Const General: cooperative, healthy appearing and no acute distress Orientation/consciousness: oriented to person, oriented to place, oriented to time and patient oriented x3 Limitations: no limitations HENMT Head: Yes normocephalic and Yes atraumatic Ears: external ears normal General nose exam: Normal external nose present Face and sinus: Yes face symmetric Mouth: oropharynx normal and moist mucous membranes Throat: Yes uvula midline Eyes Pupils: Equal, round and reactive pupils present Neck Neck: Yes normal visual inspection and Yes supple Resp Effort & Inspection: normal respiratory effort and able to speak in complete sentences Auscultation: clear to auscultation bilaterally Cardio Rate: regular rate Rhythm: regular rhythm Heart sounds: S1 normal heart sound present and S2 normal heart sound present GI Palpation (GI): Soft to palpation and Tenderness to palpation present (GI) (mild diffuse tenderness to palpation) Auscultation: normoactive bowel sounds General: Yes no CVA tenderness Back/Spine/Pelvis Back: no CVA tenderness Skin General skin exam: elasticity normal and turgor normal Neuro General: oriented to person, oriented to place, oriented to time, patient oriented x3, moves all extremities, no focal motor deficits and CN's II-XI intact bilaterally Cranial nerves: Yes Equal, round and reactive pupils present Cognition (Neuro): normal cognition Extrem General: Yes full ROM, Yes no pedal edema and Yes no calf tenderness Psych Mental Status: mental status grossly normal Affect: normal affect Thought process: Normal thought process present Medications Administered Discontinued Medications Generic Name Dose Route Start Last Admin Trade Name Freq PRN Reason Stop Dose Admin Iohexol 100 ml 11/25/24 14:59 11/25/24 15:00 Iohexol 350 Mg/Ml 100 Ml Infus..Btl IV 11/25/24 15:00 85 ml ONCE ONE Administration Medical Decision Making Medical Decision Making [facility] Narrative: Patient is a 49-year-old female with history of T2 DM, HTN, obesity, ruptured hemorrhagic cyst with hemoperitoneum s/p diagnostic laparoscopy complicated by ileus and subsegmental PEs with DVTs s/p IVC filter placement, currently on Eliquis, recovery was further complicated by intraabdominal abcess collection s/p IR guided drainage, s/p exlap, CORTES, abdominal washout, and placement of pelvis drains in June 2024, repeat outpatient CT A/P in July 2024 showed new 6.3cm subcutaneous collection, underwent successful IR guided drainage on 08/12/2025 draining 20 mL purulent fluid and placement of drain. Patient presents today complaining of generalized abdominal pain which began at 4am yesterday and woke her from sleep. On exam patient is awake, A+Ox3, VS WNL, afebrile, normal neurological exam without focal deficits, physical exam findings as above. Given reported symptoms and physical exam findings, initial differential includes but is not limited to ovarian cyst, ovarian torsion, TOA, other abscess. Labs notable for no leukocytosis, stable H&H, no evidence of RAUL, no significant electrolyte abnormalities. No evidence of infection on urinalysis. Pelvic ultrasound notable for left ovarian cystic structure without torsion, 2 cm uterine fibroid, right ovary not identified. CT A/P notable for large amount of stool throughout the colon, no other acute abnormalities. My interpretation is in agreement with the radiologist's interpretation. Results discussed with patient all questions answered. Patient now requesting testing for STIs. Denies any abnormal vaginal discharge or bleeding. Will check CT/NG, BV and update with any positive results. Will discharge home on Miralax, docu- senna. Instructed patient to follow up with PCP. Return precautions discussed. Patient verbalized understanding of and agreement with plan. Differential Diagnosis Differential Diagnoses: The differential diagnosis associated with the presentation includes As per [facility] Admission/Observation Consideration of admission/observation: Escalation of care including admission/observation considered Patient would have been admitted to the hospital had their work up had any findings where hospital admission was appropriate and their clinical presentation warranted hospital admission. Lab Data [facility] Lab Attestation statement: I reviewed the patient's lab results. As per [facility] 11/25/24 09:26 11/25/24 09:26 Labs: Lab Results 11/25/24 11/25/24 Range/Units 09:26 09:34 WBC 7.3 (4.8-10.8) X10*3/uL RBC 4.73 (4.20-5.50) X10*6/uL Hgb 11.6 L D (12.0-16.0) g/dl Hct 36.3 L D (37.0-47.0) % MCV 76.7 L (80.0-98.0) fL MCH 24.5 L (27.0-33.0) pg MCHC 32.0 (31.0-35.0) g/dl RDW 15.1 (11.0-16.0) % Plt Count 247 (160-400) X10*3/uL MPV 9.9 (9.4-12.3) fL Immature Gran % (Auto) 0.3 (0.0-0.4) % Neut % (Auto) 48.8 (45-73) % Lymph % (Auto) 41.7 H (20-40) % Geary % (Auto) 6.3 (2-11) % Eos % (Auto) 2.5 (0-4) % Baso % (Auto) 0.4 (0-2) % Lymph # (Auto) 3.1 (1.2-4.9) X10*3/uL Geary # (Auto) 0.5 (0.1-1.2) X10*3/uL Eos # (Auto) 0.2 (0.0-0.4) X10*3/uL Baso # (Auto) 0.0 (0.0-0.2) X10*3/uL Abs Immat Gran (auto) 0.02 (0.00-0.03) X10*3/uL Absolute Neuts (auto) 3.6 (2.0-8.3) x10*3/uL Absolute Nucleated RBC 0.000 (0.0-0.012) X10*3/uL Nucleated RBC % (auto) 0.0 (0.0-0.2) /100WBC Sodium 144 (135-145) mmol/L Potassium 3.4 (3.3-5.1) mmol/L Chloride 106 (96-108) mmol/L Carbon Dioxide 29 (22-29) mmol/L Anion Gap 12 (12-20) BUN 22 H (9-16) mg/dL Creatinine 0.79 (0.5-1.4) mg/dL Estim Creat Clear Calc 106.4 Estimated GFR > 60 Random Glucose 118 H (60-115) mg/dL Calcium 9.7 D (8.4-10.2) mg/dL Magnesium 1.9 (1.6-2.6) mg/dL Total Bilirubin 0.2 (0.0-1.0) mg/dL AST 18 (5-31) U/L ALT 16 (0-31) U/L Alkaline Phosphatase 80 (39-117) U/L Total Protein 7.5 (6.5-8.0) g/dL Albumin 4.2 (3.5-5.0) g/dL Urine Color Yellow Urine Appearance Clear Urine pH 6.0 (5.0-9.0) Ur Specific [place] >= 1.030 H (1.005-1.025) Urine Protein Negative (Neg-Trace) mg/dL Urine Glucose (UA) Negative (Negative) mg/dL Urine Ketones Negative (Negative) mg/dL Urine Blood Negative (Negative) Urine Nitrite Negative (Negative) Ur Leukocyte Esterase Negative (Negative) Independent Interpretation I performed an independent interpretation of an: Ultrasound and CT Scan Interpretation: Pelvic ultrasound notable for left ovarian cystic structure without torsion, 2 cm uterine fibroid, right ovary not identified. CT A/P notable for large amount of stool throughout the colon, no other acute abnormalities. Radiology Impression Discussion of test interpretation with radiology: I have reviewed the radiologist's reading. Radiologist Impression: CT/CT abdomen pelvis w IV con IMPRESSION: Large amount of stool throughout the colon. No inflammatory process is identified. US/US pelvic and transvaginal IMPRESSION: Right ovary is not identified. Left ovary demonstrates a 1.5 cm cystic structure likely dominant follicle without ovarian torsion. Probable 2 cm uterine fibroid. Questionable punctate calcification in the cervix. External Record Review External record reviewed: Inpatient record, Office record and Outpatient record Prescription Management I considered prescription management with: Other Discharge Plan Discharge Clinical Impression: Constipation, Abdominal pain Patient Disposition: Home, Self-Care Instructions: Constipation (DC), Acute Abdominal Pain (DC) Additional Instructions: You have been evaluated in the emergency department today for abdominal pain. Your evaluation did not show evidence of medical conditions requiring emergent intervention at this time. Your CT scan showed a large amount of stool in your colon. You are being prescribed medications to help move your bowels, take these as prescribed. You were tested for sexually transmitted infections today, you will be contacted with any positive results. Please schedule an appointment with your primary care physician. Return to the emergency department if you experience worsening or uncontrolled pain, fevers 100.4? F or greater, recurrent vomiting, inability to tolerate food or fluids by mouth, bloody stools or vomit, black or tarry stools, or any other concerning symptoms. Prescriptions: New polyethylene glycol 3350 [Miralax] 17 gram/dose powder 17 g PO DAILY Qty: 119 0RF sennosides-docusate sodium 8.6-50 mg tablet 1 tab-cap PO BEDTIME Qty: 14 0RF No Action fluticasone propionate 50 mcg/actuation spray,suspension intranasal albuterol sulfate 90 mcg/actuation HFA aerosol inhaler 2 puff inhalation Q6H PRN montelukast [Singulair] 10 mg tablet 10 mg PO DAILY lisinopril-hydrochlorothiazide 20-25 mg tablet PO clobetasol 0.05 % ointment 1 appl topical BID Print Language: Malagasy
--- OUTSIDE RECORDS SUMMARY | 2024-11-25 12:51 | XMS_ITS | Encounter Summary ---
Author Organization [facility] Address [address] [place] [phone] Phone Care Team Providers Care Ip Litigation Associate Name Role Phone Hetal Valencia MD Primary Care Provider Encounter Details Date Type Department Care Team (Late st Contact Info) Description 11/24/2012 Documentation EM Family Medicine [address] [place] [address] Family Medicine, Physician [address] [place], [place] [phone] Social History Tobacco Use Types Packs/Day Years Used Date Smoking Tobacco: Never Assessed Comments Unknown Sex and Gender Information Value Date Recorded Sex Assigned at Not on file Legal Sex Female 4:44 PM EDT Gender Identity Not on file Sexual Orientation Not on file documented as of this encounter Plan of Treatment Not on file documented as of this encounter Visit Diagnoses Not on filedocumented in this encounter Care Teams Ip Litigation Associate Relationship Specialty Start Date End Date Hetal Valencia MD [address] [place] [address] MIKAYLA Alonso [id number] PCP - General 04/05/17 documented as of this encounter
--- OUTSIDE RECORDS SUMMARY | 2024-11-25 12:51 | XMS_ITS ---
Author Organization [facility] Address [address] [place] [address] [place] [address] Care Team Providers Care Garment Form Assembler Name Role Phone AbhiDaylin pacheco Primary Care Provider Unavailab Irasema Hayden Unavailable [phone] REASON FOR VISIT no show 12/10 Encounters Encounter Location Date Provider Diagnosis [facility] [address] [place] [address] 12/11/2023 Irasema Herrera Plan Of Treatment No Information Progress Notes * Tamir GOMEZidaDOB:[birth year] (48 yo F)Acc No.[id number]:12/11/2023 Patient:?Klarissa Gomez :1975???Age:48 Y???Sex:Female Address:[address] [place] [address], [address] * true * Date:? Generated for Tonioi anderson/Salima/eTransmitting on:?11/25/2024 12:51 PM EDT
--- OUTSIDE RECORDS SUMMARY | 2024-11-25 12:51 | XMS_ITS | Encounter Summary ---
Author Organization [facility] Address [address] [place] [phone] Phone Care Team Providers Care Cashier Credit Name Role Phone Hetal Valencia MD Primary Care Provider [phone] Encounter Details Date Type Department Care Team (Late st Contact Info) Description 11/24/2012 Documentation EM Family Medicine [address] [place] [address] Family Medicine, Physician [address] [place], [place] [phone] Social History Tobacco Use Types Packs/Day Years [...] on filedocumented in this encounter Care Teams Cashier Credit Relationship Specialty Start Date End Date Hetal Valencia MD [address] [place] [address] MIKAYLA Alonso [id number] PCP - General 04/05/17 documented as of this encounter
--- OUTSIDE RECORDS SUMMARY | 2024-11-25 12:51 | XMS_ITS ---
Author Organization [facility] Address [address] [place] [address] Care Team Providers Care Hospital Staff Pharmacist Name Role Phone Daylin Ruth Primary Care Provider Unavailab Irasema Hayden [phone] Encounters Encounter Location Date Provider Diagnosis [facility] [address] [place] [address] 12/11/2023 Irasema Herrera Plan Of Treatment No Information Progress Notes * Tamir GOMEZidaDOB:[birth year] (49 yo F)Acc No.[id number]:12/11/2023 Progress Notes Patient:?Klarissa GOMEZ Provider:?Irasema Herrera DPM :1975???Age:48 Y???Sex:Female D ate:12/11/2023 Address:[address] [place], [place] [id number] Pcp:Daylin Ruth Subjective: * Chief Complaints: * ??? * Medical History:? Objective: * Vitals:? Assessment: Plan: * Treatment: * Images: * The named appointment provid er may or may not be the originator of this progress note, and it is not deemed complete until electronically signed by the appointment provider. Sign off status: Pending * Provider:?Irasema Herrera DPM Date:? Generated for Tonioi anderson/Salima/eTransmitting on:?11/25/2024 12:50 PM EDT
--- OUTSIDE RECORDS SUMMARY | 2024-11-25 12:51 | XMS_ITS | Encounter Summary ---
Author Organization [facility] Address [address] [place] [address] Phone Care Team Providers Care Agricultural Commodities Grader Name Role Phone Hetal Valencia MD Primary Care Provider [phone] Encounter Details Date Type Department Care Team (Late st Contact Info) Description 11/24/2012 Documentation EM Family Medicine [address] [place] [address] Family Medicine, Physician [address] [place], [place] [phone] Social History Tobacco Use Types Packs/Day Years [...] on filedocumented in this encounter Care Teams Agricultural Commodities Grader Relationship Specialty Start Date End Date Hetal Valencia MD [address] [place] [address] MIKAYLA Alonso [address] PCP - General 04/05/17 documented as of this encounter
--- OUTSIDE RECORDS SUMMARY | 2024-11-25 12:51 | XMS_ITS | Patient Health Record ---
Author Organization [facility] Address [address] [place] [address] Care Team Providers Care Qa Intern Name Role Phone Daylin Ruth Primary Care Provider Unavailab Irasema Hayden Unavailable [phone] Allergies Allergen (clinical drug ingredient) Drug/Non Drug Allergy documented on EMR Reaction Allergy Type Onset Date Status shrimp allergenic extract Shrimp (Diagnostic) Unknown Drug Allergy Active Reason For Referral No Information Medications Medication SIG (Take, Route, Frequency, Duration) Notes Start Date End Date Status Vitamin A Not-Taking Vitamin B Complex No t-Taking Feldene 20 MG 1 capsule with food Orally Once a day for 30 day(s) 10/23/2023 Active Albuterol Active Lisinopril Active Ciclopirox Olamine 0.77 % 1 application Externally Twice a day for 30 days Active Singulair Active Social History Tobacco Use: Social History Observation Description Date Details (start date - stop date) Former Smoker NA - NA Tobacco Use/Smoking Question Answer Notes Are you a: former smoker Additional Findings: Tobacco Non-User Current no n-smoker Alcohol Screen Question Answer Notes Did you have a drink contain ing alcohol in the past year? Yes How often did you have a dri nk containing alcohol in the past year? 2 to 4 times a month (2 points) Points 2 Interpretation Negative Tobacco use other than smoking: Question Answer Notes Are you an other tobacco user? No Problems Problem Type SNOMED Code ICD Code Onset Dates Problem Status W/U Status Risk Notes Problem Interstitial myositis (77795914) Interstitial myositis of right foot (M60.171) Active confirmed Encounters Encounter Location Date Provider Diagnosis [facility] [address] [place] [address] 12/11/2023 Irasema Sharon Plan Of Treatment Pending Test Test Name Order Date X ray : Foot, right 3V 10/23/2023 Insurance Providers Payer Name Payer Address Payer Phone Subscriber Number Group Number Insured Name Patient Relationship to Insured Coverage Start Date Coverage End Date [facility] [address] [place] [address] [id number] Klarissa Gomez Self - patient is the insured Medical (General) History Medical History History ICD Code asthma Back,Hip,and Knee pain Depression High blood pressure Poor circulation Psoriasis/eczema Sciatica Chicken pox Surgical History Surgery Date(Month/Year) 1995/2001/2005
--- OUTSIDE RECORDS SUMMARY | 2024-11-25 12:51 | XMS_ITS | Encounter Summary ---
Author Organization [facility] Address [address] [place] [id number] Phone Care Team Providers Care Accounts Payable Lead Name Role Phone Hetal Valencia MD Primary Care Provider [phone] Encounter Details Date Type Department Care Team (Late st Contact Info) Description 11/24/2012 Documentation EM Family Medicine [address] [place] [address] Family Medicine, Physician [address] [place], [place] [phone] Social History Tobacco Use Types Packs/Day Years [...] on filedocumented in this encounter Care Teams Accounts Payable Lead Relationship Specialty Start Date End Date Hetal Valencia MD [address] [place] [address] MIKAYLA Alonso [id number] PCP - General 04/05/17 documented as of this encounter
--- OUTSIDE RECORDS SUMMARY | 2024-11-25 12:51 | XMS_ITS | Encounter Summary ---
Author Organization [facility] Address [address] [place] [address] Phone Care Team Providers Care Political Organizer Name Role Phone Hetal Valencia MD Primary Care Provider [phone] Encounter Details Date Type Department Care Team (Late st Contact Info) Description 11/24/2012 Documentation EM Family Medicine [address] [place] [address] Family Medicine, Physician [address] [place], [place] [phone] Social History Tobacco Use Types Packs/Day Years [...] on filedocumented in this encounter Care Teams Political Organizer Relationship Specialty Start Date End Date Hetal Valencia MD [address] [place] [address] MIKAYLA Alonso [address] PCP - General 04/05/17 documented as of this encounter
--- OUTSIDE RECORDS SUMMARY | 2024-11-25 12:51 | XMS_ITS | Clinical Summary ---
Author Organization [facility] Address [address] [place] [address] Phone Care Team Providers Care Family Service [facility] Director Name Role Phone Daylin Ruth MD Primary Care Provider [phone] Allergies Active Allergy Reactions Criticality Noted Date Comments Other 01/15/2024 Seasaonal allergies Shrimp 01/15/2024 Medications albuterol HFA (PROVENTIL HFA;VENTOLIN HFA) 108 (90 Base) MCG/ACT inhaler Inhale into the lungs as needed. Active fluticasone-salm eterol (ADVAIR DISKUS) 250-50 mcg/dose diskus inhaler Inhale 1 Puff into the lungs as needed. Active LISINOPRIL ORAL Take 10 Doses by mouth daily. 2 tab Active montelukast (SINGULAIR) 10 mg tablet Take 10 mg by mouth at bedtime. Active semaglutide (Wegovy) 0.25 mg/0.5 mL injection pen Inject 0.25 mg into the skin once a week. 03/31/2024 Active Surgical History Surgery Date Site/Laterality Comments SECTION PROCEDURE: HISTORICAL DELIVERY; COMMENT: x3 Medical History Medical History Date Comments Asthma DX:Asthma Essential hypertension DX:Essent ial hypertension Family History Medical History Relation Name Comments Hypertension Mother Relation Name Status Comments Father Mother Alive Social History Tobacco Use Types Packs/Day Years Used Date Smoking Tobacco: Former Smokeless Tobacco: Never Alcohol Use Standard Drinks/Week Comments Yes 0 (1 standard drink = 0.6 oz pur e alcohol) Comments Unknown Sex and Gender Information Value Date Recorded Sex Assigned at Not on file Legal Sex Female 4:33 AM EST Gender Identity Not on file Sexual Orientation Not on file Obstetrics History Last Filed Vital Signs Vital Sign Reading Time Taken Comments Blood Pressure 170/91 03/30/2024 8:17 AM EDT Pulse 96 03/30/2024 8:17 AM EDT Temperature - - Respiratory Rate - - Oxygen Saturation - - Inhaled Oxygen Concentration - - Weight 141 kg (310 lb 9.6 oz) 03/30/2024 8:17 AM EDT Height 154.9 cm (5' 1 ) 03/30/2024 8:17 AM EDT Body Mass Index 58.69 03/30/2024 8:17 AM EDT Plan of Treatment Health Maintenance Due Date Last Done Comments Breast Cancer Screening 1977 DTaP,Tdap,and Td Vaccines (1 - Tdap) 1996 Hepatitis B Vaccines (1 of 3 - 19+ 3-dose series) 1996 Cervical Cancer Screening: P ap Smear 1998 Cholesterol Screening (Lipid Panel) 07/29/2022 Colorectal Cancer Screening: Colonoscopy 07/29/2022 Depression Screening 07/29/2022 HIV Screening 07/29/2022 Hepatitis C Screening 07/29/2022 Social Influencers of Health Screening 07/29/2022 COVID-19 Vaccine (2023-2 5 season) 2024 Hypertension/CHF/CAD Annual BMP Blood Test 06/04/2024 Influenza Vaccine (Season Ended) 2025 HIB Vaccines Aged Out No longer eligi ble based on patient's age to complete this topic HPV Vaccines Aged Out No longer eligi ble based on patient's age to complete this topic Hepatitis A Vaccines Aged Out No long er eligible based on patient's age to complete this topic IPV Vaccines Aged Out No longer eligi ble based on patient's age to complete this topic MMR Vaccines Aged Out No longer eligi ble based on patient's age to complete this topic Meningococcal ACWY Vaccine Aged Out N o longer eligible based on patient's age to complete this topic Meningococcal B Vacine Aged Out No lo nger eligible based on patient's age to complete this topic Pneumococcal Vaccine: Pediat rics (0 to 5 Years) and At-Risk Patients (6 to 64 Years) Aged Out No longer eligible b ased on patient's age to complete this topic RSV Immunization Patients Un kaykay 20 months Aged Out No longer eligible b ased on patient's age to complete this topic Varicella Vaccines Aged Out No longer eligible based on patient's age to complete [place] [id number] [facility] MEDICA[place] - [place] Care Teams Family Service Center Director Relationship Specialty Start Date End Date Daylin Ruth MD [address] [facility] [address] [place], [place] PCP - General Internal Medicine 05/20/17
--- OUTSIDE RECORDS SUMMARY | 2024-11-25 12:51 | XMS_ITS | Encounter Summary ---
Author Organization [facility] Address [address] [place] [phone] Phone Care Team Providers Care In Home Nanny Name Role Phone Hetal Valencia MD Primary Care Provider [phone] Encounter Details Date Type Department Care Team (Late st Contact Info) Description 11/24/2012 Documentation EM Family Medicine [address] [place] [address] Family Medicine, Physician [address] [place], [place] [phone] Social History Tobacco Use Types Packs/Day Years [...] on filedocumented in this encounter Care Teams In Home Nanny Relationship Specialty Start Date End Date Hetal Valencia MD [address] [place] [address] MIKAYLA Alonso [address] PCP - General 04/05/17 documented as of this encounter
--- OUTSIDE RECORDS SUMMARY | 2024-11-25 12:51 | XMS_ITS | Clinical Summary ---
Author Organization [facility] Address [address] [place] [address] Phone Care Team Providers Care Vp Transportation Name Role Phone Hetal Valencia MD Primary Care Provider Immunizations Immunization Administration Dates Next Due MMR 05/18/1991 Td (adult) (MBL), 2 Lf tetanus toxoid, PF, adsor bed 10/04/1993 Social History Tobacco Use Types Packs/Day Years Used Date Smoking Tobacco: Never Assessed Comments Unknown Sex and Gender Information Value Date Recorded Sex Assigned at Not on file Legal Sex Female 4:44 PM EDT Gender Identity Not on file Sexual Orientation Not on file Plan of Treatment Health Maintenance Due Date Last Done Comments Varicella Vaccines (1 of 2 - 13+ 2-dose series) 06/15/1991 DTaP,Tdap,and Td Vaccines (2 - Tdap) 10/05/1993 10/04/1993 Hepatitis B Vaccines (1 of 3 - 19+ 3-dose series) 1996 Influenza Vaccines (#1) 2024 COVID-19 Vaccine ( - 2023-2 5 season) 2024 MMR Vaccines Completed 05/18/1991 HIB Vaccines Aged Out No longer eligi [...] on patient's age to complete this topic Men B Vaccine Aged Out No longer elig ible based on patient's age to complete this topic Meningococcal Vaccine Aged Out No basim wanda eligible based on patient's age to complete this topic Pneumococcal Vaccine Aged Out No long er eligible based on patient's age to complete this topic Care Teams Vp Transportation Relationship Specialty Start Date End Date Hetal Valencia MD [address] [place] [address] MIKAYLA Alonso [id number] PCP - General 04/05/17
--- OUTSIDE RECORDS SUMMARY | 2024-11-25 12:51 | XMS_ITS ---
Author Organization [facility] Address [address] [facility] [place] [address] Care Team Providers Care Logistics Management Specialist Name Role Phone Daylin Ruth Primary Care Provider Unavailab Irasema Hayden Unavailable [phone] Allergies Allergen (clinical drug ingredient) Drug/Non Drug Allergy documented on EMR Reaction Allergy Type Onset Date Status shrimp allergenic extract Shrimp (Diagnostic) Unknown Drug Allergy Active REASON FOR VISIT Pcp- 08/17, Skin Problem, Heel pain Medications Medication SIG (Take, Route, Frequency, Duration) Notes Start Date End Date Status Vitamin A Not-Taking Vitamin B Complex No t-Taking Albuterol Active Ciclopirox Olamine 0.77 % 1 application Externally Twice a day for 30 days Active Singulair Active Feldene 20 MG 1 capsule with food Orally Once a day for 30 day(s) 10/23/2023 Active Lisinopril Active Social History Tobacco Use: Social History [...] W/U Status Risk Notes Problem Interstitial myositis (46505653) Interstitial myositis of right foot (M60.171) Active confirmed Vital Signs Height 5 ft 1 in in 10/23/2023 Weight 289 lbs 10/23/2023 BMI 54.6 kg/m2 10/23/2023 Encounters Encounter Location Date Provider Diagnosis [facility] [address] [address] 10/23/2023 Irasema Herrera Tinea pedis of both feet B35.3 ; Plantar fasciitis of right foot M72.2 ; Pain in right foot M79.671 ; Calcaneal spur, right foot M77.31 ; Interstitial myositis of right foot M60.171 and Bursitis of right foot M77.51 Assessments Encounter Date Diagnosis (ICD Code) Assessment Notes Treatment Notes Treatment Clinical Notes Section Notes 10/23/2023 Tinea pedis of both feet (ICD-10 - B35.3) 10/23/2023 Plantar fasciitis of right foot (ICD-10 - M72.2) Patient Educated with: HEEL CORD STRETCHES.pdf (HEEL CORD STRETCHES.pdf) Patient Educated with: RICE THERAPY.pdf (RICE THERAPY.pdf) 10/23/2023 Pain in right foot (ICD-10 - M79.671) 10/23/2023 Calcaneal spur, right foot (ICD-10 - M77.31) 10/23/2023 Interstitial myositis of right foot (ICD-10 - M60.171) 10/23/2023 Bursitis of right foot (ICD-10 - M77.51) Plan Of Treatment Medication Medication Name Sig Start Date Stop Date Notes Ciclopirox Olamine 0.77 % 1 application Externally Twice a day for 30 days Feldene 20 MG 1 capsule with food Orally Once a day for 30 day(s) 10/23/2023 Treatment Notes Assessment Notes Plantar fasciitis of right foot Patient Educated with: HEEL CORD STRETCHES.pdf (HEEL CORD STRETCHES.pdf) Patient Educated with: RICE THERAPY.pdf (RICE THERAPY.pdf) Pending Test Test Name Order Date X ray : Foot, right 3V 10/23/2023 Next Appt Details Follow Up: 6 Weeks, Reason: Progress Notes * Nolan GOMEZOB:[birth year] (48 yo F)Acc No.[id number]:10/23/2023 Progress Notes Patient:?Klarissa Gomez Provider:?Irasema Herrera DPM :1975???Age:48 Y???Sex:Female D ate:10/23/2023 [facility] [id number] Pcp:Daylin Ruth Subjective: * Chief Complaints: * ???Pcp- 08/17Skin ProblemHee l pain * HPI: ???Skin problems:?Nature:?scaling , redness.?Location:?B/L .?Duration:?several days.?Course:?worse.?Heel pain:?Nature:?aching tenderness throbbing.?Location:?Proximal plantar aspect of Heel, RIGHT.?Duration:?more than six months .?Onset/Cause:?gradual denies trauma.?Course:?worse.?Aggrevated:?standing, walking, walking first thing in the morning/after rest.?Treatments:?rest/alter normal daily activity.? * ROS:?General/Constitutional:?Nausea?denies.?Vomiting?denies.?Hunger Thirst?denies.?Loss appetite?denies.?Chills?denies.?Fatigue?denies.?Fever?denies.?Night Sweats?denies.?Unexplained weight loss?denies.?Unexplained weight gain?admits.?HEENTM:?Dentures?denies.?Dizziness?denies.?Glasses/contacts?admits.?Retinopathy?de nies.?Blurred/double vision?admits.?TMJ?denies.?Discharge/drainage?denies.?Implants?denies.?Sore throat?denies.?Dental implants?denies.?Hard of hearing ?denies.?Difficulty chewing/swallowing/speaking?denies.?Nose bleeds?admits.?Sore mouth?denies.?Respiratory:?On Oxygen?denies.?Pneumonia/pleurisy?denies.?Bronchitis?denies.?Emphysema?denies.?C oughing?admits.?Cough blood?denies.?Shortness of breath?admits.?Wheezing?admits.?Cardiovascular:?Pacemaker?denies.?MVP?denies.?WPW?denies.?CHF?denies.?Heart attack?denies.?Septal defect?denies.?Rapid beat?denies.?Chest pain ?denies.?Atrial Fib.?denies.?Murmur/Palpitations?denies.?Gastrointestinal:?Hemorrhoids?denies.?Stomach/Abdominal pain?denies.?Dark blood stool?denies.?Irritable bowel ?denies.?Constipation?denies.?Diarrhea?denies.?Hematology:?Swelling?denies.?Clots?denies.?Varicose Veins?admits.?Bruising?denies.?Bleeding problem?denies.?Genitourinary:?Blood urine?denies.?Frequent/Painfu/urination/bladder control?denies.?Kidney stones?denies.?Infection (UTI)?denies.?Nephropathy?denies.?sex trans dis (STD)?denies.?Prostate?denies.?Musculoskeletal:?Hammertoes?denies.?Bunions?denies.?Back Pain?admits.?Muscle Cramps/ Resting?admits.?Muscle cramps / walking?admits.?Generalized aches and pains?admits.?Weakness?denies.?Integ.:?Celis?denies.?Scars?denies.?Corns/calluses?admits.?Ingrown nails?admits.?Painful nails?denies.?Open Sores?denies.?Rashes?admits.?Neurologic:?Difficulty sleeping?admits.?Brain disorder?denies.?Numbness?admits.?Balance trouble?denies.?Confusion?denies.?Fainting/blackouts?denies.?Tingling?admits.?Tr emors?denies.? * Medical History:? * Surgical History:? 1995/2001/2005 * Hospitalization/Major Diagno stic Procedure:?Denies Past Hospitalization * Family History:?Mother: unkn own, foot problems, diagnosed with Diabetic - NIDDM.?Father: unknown.?Son(s): .?Paternal Grand Mother: poor circulation, diagnosed with Diabetic - NIDDM.?Maternal Grand Mother: poor circulation, diagnosed with Family history of arthritis.?Maternal aunt: stroke.?Maternal uncle: stroke.?Siblings: foot problems, high blood pressure.?Paternal aunt: diagnosed with Diabetic - NIDDM.? * Social History:?Tobacco Use:?Tobacco Use/Smoking?Are you a:?former smoker ?Additional Findings: Tobacco Non-User?Current non-smoker ?Tobacco use other than smoking?Are you an other tobacco user??No ???Drugs/Alcohol:?Drugs?Have you used drugs other than those for medical reasons in the past 12 months??No ?Alcohol Screen?Did you have a drink containing alcohol in the past year??Yes ?How often did you have a drink containing alcohol in the past year??2 to 4 times a month (2 points) ?Points?2 ?Interpretation?Negative ???Miscellaneous:?Caffeine: yes, 1-2 cups per day. ?Children: yes, 3. ?no Exercise. ?Marital status: single. ?Occupation: [employer]. * Medications:?TakingSingulair Lisinopril Albuterol Taking Singulair Taking Lisinopril Taking Albuterol Not-Taking/PRNVitamin B Complex Vitamin A Medication List reviewed and reconciled with the patientNot-Taking/PRN Vitamin B Complex Not-Taking/PRN Vitamin A Medication List reviewed and reconciled with the patient * Allergies:?Shrimp (Diagnosti c)yes[Allergies Verified] Objective: * Vitals:?Ht:5 ft 1 in, Wt:289 , BMI:54.6, Shoe size: 9, Ht-cm: 154.94 cm, Wt-k.09 kg. * Examination: ???General Examination: ?GENERAL APPEARANCE:?Reveals a pleasant, alert, well-nourished, well- developed, well hydrated individual, who demonstrates proper attention to hygiene/body habitus, and is in no acute distress, Pt serves as own?historian for office visit today.?ORIENTED:?person, place, and time.?Neurological: ?SENSORY:?Neurological exam reveals intact sensorium, pain sensation normal, vibration sensation intact, pinprick sensation is normal in the lower extremities, Pt denies, anesthesia, burning, paresthesia, tingling, B/L.?TINEL'S COMPRESSION:?Negative tarsal tunnel, kaleb pedis, and medial calcaneal nerves.?DEEP TENDON REFLEXES:?Achilles, 2/4, B/L.?Vascular: ?DP PULSES:?3/4, B/L.?PT PULSES:?3/4, B/L.?CAPILLARY FILL TIME:?immediate, all digits, B/L.?SKIN TEMPERTURE GRADIENT OF THE LOWER EXTERMITIES:?warm to cool, proximal to distal, B/L.?HAIR GROWTH/TEXTURE/ELASTICITY/TURGOR:?normal, B/L.?PIGMENTATION:?normal, B/L.?EDEMA:?absent, B/L.?Dermatologic: ?SKIN FINDINGS:?Skin shows sign(s) of, erythema, scaling, in a moccasin fashion, no fissure(s) present, B/L.?Orthopedic: ?MUSCLE STRENGTH:?5/5 all groups in a symmetrical fashion , B/L.?GAIT ABNORMALITY:?antalgic.?FOOT MORPHOLOGY:? Pes Planus structure, Decreased Ankle joint dorsiflexion ROM, knee extended.?FOOTWEAR:? shoe gear properties exacerbate patients foot/toe deformity.?Heel Pain: ?INSPECTION:? Pain on Palpation to Plantar Fascia med. and central bands, intrinsic musc., infra-calcaneal bursa, and med calc tubercle , RIGHT foot, No pain: posterior/superior heel, achilles bursa/tendon, sinus tarsi, peroneals, or with lateral heel compression; no limited STJ ROM, calor, or ecchymosis.?X-Rays - IMAGING REPORT: ?Clinical Indication(s):? Evaluate for Fracture, Evaluate Biomechanical Deformity.?Views:? 3 views of Foot, LAT, LO, MO, RIGHT.?Findings:? normal bone and soft tissue density consistent for patients age and sex, navicular/cuneiform plantar subluxation with anterior cyma line, positive infra-calcaneal exostosis.?Fracture:?Negative fractures identified.? Assessment: * Assessment: 1.?Plantar fasciitis of righ t foot - M72.2 (Primary), Acute problem, Complicated w/ Multiple Tx Options(4),Dx New problem, Prognosis Uncertain (4)?2.?Tinea pedis of both feet - B35.3, Acute problem, Uncomplicated (3),Rx drug management (4)?3.?Pain in right foot - M79.671?4.?Calcaneal spur, right foot - M77.31?5.?Interstitial myositis of right foot - M60.171?6.?Bursitis of right foot - M77.51? Plan: * Treatment: 2.?Tinea pedis of both feet? Start Ciclopirox Olamine Cream, 0.77 %, 1 application, Externally, Twice a day, 30 days, 60, Refills 2.?? 3.?Pain in right foot?Imaging: X ray : Foot, right 3V * Procedure Codes:?58391 X-RAY EXAM OF RIGHT FOOT 3V, Modifiers: 26 , RT * Preventive Medicine:? ??Counseling:?Discussion:?-04: Office or other outpatient visit for the evaluation and management of a new patient, which required a medically appropriate history and/or examination and MODERATE level of DECISION MAKING for: 1 OR MORE CHRONIC PROBLEM(S) THATS WORSENING, 2 STABLE CHRONIC PROBLEMS, A NEWLY DIAGNOSED PROBLEM WITH UNCERTAIN PROGNOSIS, AN ACUTE COMPLICATED INJURY WITH MULTIPLE TREATMENT OPTIONS, OR AN ACUTE PROBLEM WITH ACCOMPANYING SYSTEMIC SYMPTOMS, THAT POSE(S) A MODERATE RISK OF MORBIDITY. THIS CONDITION MAY ALSO INCLUDE RX DRUG MANAGEMENT, OR A DECISON FOR MINOR SURGERY. The visit on the day of the encounter encompassed interpreting the data and educating the patient as to the nature of their condition, treatment options available according to their individual PMH, meds, allergies, and overall health/living conditions, as well as any potential risks or complications that may occur from a failure to adhere to, and participate in, the recommended course of therapy. The discussion included a complete verbal, and/or written explanation of the examination results, any x-rays taken, the proposed diagnosis, and outline of the treatment plan. A schedule for future care needs was also explained. The patient verbalized an understanding of the instructions at this time and agreed to be an active participant in their treatment. If the patient should think of any questions or concerns after the visit, I have encouraged the patient to call the office.?Heel pain:?FASCIITIS: I explained to the patient the possible etiologies of Plantar Fasciitis including foot type/shoegear/activity level/exercise routine and the risks/benefits of all the different treatment options for heel pain including: No treatment at all, Rest, Ice, NSAIDs(only if well tolerated after meals), New/supportive Shoegear, Strappings and Tapings, Stretching exercises, Deep Tissue Massage, Heel cups/cushions, Arch support/shoe inserts, Custom orthoses, Topical analgesics including Aspercream/Voltaren gel, Night splint AFO for am stiffness, Cortisone injection therapy, Cast boot with crutches/cane/or walker for assisted ambulation, Physical Therapy, EPAT/ESWT, Interfil injection therapy, as well as surgical [place]/Endoscopic Fasciitomy surgical procedures if needed. Recommendations were made to limit barefoot walking, eliminate wearing nonsupportive shoegear (i.e. flip-flops or sandals, or a shoe with an easily bendable, foldable, or twistable sole) and wear shoegear with a good solid sole, a supportive arch, and plenty of room for an insert/orthotic if necessary. If wearing sandals was required by the patient, we recommended orthopedic sandals such as Orthoheel or Birkenstock even while in the home. If the patient wore heels in the past, we recommended they continue, but eliminate the use of flats. The advantages and disadvantages of each option were discussed and the patients questions re: types of shoegear, custom vs prefabricated inserts, activity level, PO vs Topical medications (and their respective potential complications/drug interactions/side effects), and consistency in home treatment regimens for optimal success were answered to their satisfaction. Literature detailing plantar fasciitis and the various treatment options were dispensed and reviewed.?P.R.I.C.E.:?The patient was counseled on the use of P.R.I.C.E. and NSAIDS (if well tolerated) to aid in the recovery from their painful condition.?Shoe Gear Counseling:?The patient and I reviewed the types of shoes they should be wearing. My recommendation included obtaining a well-fitted shoe with a good supportive, non-foldable nor twistable sole, plenty of toe/room for the forefoot, and proper arch support. Based on todays examination, I recommended the patient look for new shoes, by having their feet professionally measured. We discussed that generally the best time of the day for a shoe fitting is the afternoon. Different shoes types and brands to best match the patients occupation and vocation were discussed. Specific brand selection will be up to the patient, their individual foot condition/deformities, and fit. The patient and I reviewed the standard new shoe break in period by wearing them for a few hours a day while checking for redness or sores as wear time is increased. The patient verbally confirmed to understanding the information discussed.?Stretching Exercises:?Stretching and deep tissue massage exercises for the patients injury/diagnosis were discussed and demonstrated, handouts were dispensed.?Tinea Pedis:?The patient was counseled on the diagnosis, potential etiologies, and treatment options for their skin condition. We discussed the risks and benefits of each option from performing no treatment, to utilizing OTC topical skin creams, prescription topical creams, customized compounded topical medications, and, if necessary, to utilize oral antifungal therapy. We discussed the advantages and disadvantages of each possible treatment and importance for adherence to all the recommended therapies for optimum success and avoid potential complications such as open sore/infection/possible hospitalization. We discussed the potential effectiveness of each topical preparation as well as each ones possible side effects and/or patient medication interactions if oral therapy is selected. Patient questions re: the advantages and disadvantages of each treatment choice, medication use/dosage, successful outcomes, and application consistency were reviewed and the patient verbalized that all answers were clearly understood. The patient was told they can help alleviate symptoms by utilizing moisture absorbant innersoles with activated charcoal and baking soda, applying antifungal sprays daily, aerating toe web spaces at night by putting cotton or lambs wool between the toes, alternating shoe gear daily if possible so they can dry out, changing socks at least once during the day, wearing well-ventilated shoes or sandals. The patient has decided to apply antifungal skin creams to their feet as directed. Rx was sent to their pharmacy at the time of visit.?X-rays:?Discussed and reviewed the X-rays with the patient. We discussed how the findings relate to the patients symptoms/complaints. Answered any and all questions..? * Follow Up:?6 Weeks * Images: * Sign off status: Completed true * Provider:?Irasema Herrera DPM Date:? Generated for Rosa barron/Salima/eTransmitting on:?11/25/2024 12:50 PM EDT History and Physical Notes * HPI (History of Present Illness) Category Sub-Category Detail Notes Category Not es Heel pain Duration: more than six months Nature: aching tenderness th robbing Location: Proximal plantar asp ect of Heel, RIGHT Onset/Cause: gradual denies traum a Aggravated: standing, walking, w alking first thing in the morning/after rest Course: worse Treatments: rest/alter normal da swathi activity Skin problems Nature: scaling , redness Location: B/L Duration: several days Course: worse Examination Category Sub-Category Detail Notes Category Not es Neurological SENSORY: Neurological exa m reveals intact sensorium, pain sensation normal, vibration sensation intact, pinprick sensation is normal in the lower extremities, Pt denies, anesthesia, burning, paresthesia, tingling, B/L TINEL'S COMPRESSION: Negative tarsal leonardo evangelist, kaleb pedis, and medial calcaneal nerves DEEP TENDON REFLEXES: Achilles, 2/4, B/L Dermatologic SKIN FINDINGS: Skin shows sign( s) of, erythema, scaling, in a moccasin fashion, no fissure(s) present, B/L Orthopedic GAIT ABNORMALITY: antalgic FOOT MORPHOLOGY: Pes Planus structure , Decreased Ankle joint dorsiflexion ROM, knee extended FOOTWEAR EVALUATION: shoe gear propertie s exacerbate patients foot/toe deformity MUSCLE STRENGTH: 5/5 all groups in a symmetrical fashion , B/L General Examination GENERAL APPEARANCE: Reveals a pleasant, alert, well- nourished, well-developed, well hydrated individual, who demonstrates proper attention to hygiene/body habitus, and is in no acute distress, Pt serves as own historian for office visit today ORIENTED: person, place, and t vee Vascular DP PULSES (B): 3/4, B/L PT PULSES (B): 3/4, B/L CAPILLARY FILL TIME: immediate, all digi ts, B/L TEMPERTURE GRADIENT (C): warm to cool, p roximal to distal, B/L TROPHIC CONDITION-TEXTURE/ELASTICITY/TURGOR/HAIR GROWTH (B): normal, B/L EDEMA (C): absent, B/L PIGMENTATION: normal, B/L X-Rays - IMAGING REPORT Findings: normal b one and soft tissue density consistent for patients age and sex, navicular/cuneiform plantar subluxation with anterior cyma line, positive infra-calcaneal exostosis Fracture: Negative fractures i dentified Views: 3 views of Foot, LAT , LO, MO, RIGHT Clinical Indication(s): Evaluate for Fra cture, Evaluate Biomechanical Deformity Heel Pain INSPECTION: Pain on Palpatio n to Plantar Fascia med. and central bands, intrinsic musc., infra-calcaneal bursa, and med calc tubercle , RIGHT foot, No pain: posterior/superior heel, achilles bursa/tendon, sinus tarsi, peroneals, or with lateral heel compression; no limited STJ ROM, calor, or ecchymosis
--- OUTSIDE RECORDS SUMMARY | 2024-11-25 12:51 | XMS_ITS | Encounter Summary ---
Author Organization [facility] Address [address] [place] [id number] Phone Care Team Providers Care Telephone Station Installer Name Role Phone Hetal Valencia MD Primary Care Provider [phone] Encounter Details Date Type Department Care Team (Late st Contact Info) Description 11/24/2012 Documentation EM Family Medicine [address] [place] [address] Family Medicine, Physician [address] [place], [place] [id number] Social History Tobacco Use Types Packs/Day Years [...] on filedocumented in this encounter Care Teams Telephone Station Installer Relationship Specialty Start Date End Date Hetal Valencia MD [address] [place] [address] [place] [id number] PCP - General 04/05/17 documented as of this encounter
[2024-11-25] MEDS: iohexoL 350 MG/ML 100 ML INFUS..BTL IV (15:00)
[2024-11-25 16:40] VITALS: BP 149/81; PULSE 77; RESP 16; TEMP 36.7; O2SAT 95
[2024-11-26 02:11] LABS: CT PCR NOT DETECTED (Not Detect.); NG PCR NOT DETECTED (Not Detect.)
[2024-11-26 09:05] LABS: Bacterial Vaginosis PCR NEGATIVE (Negative); Candida Group PCR NOT DETECTED (Not Detect); Candida glab krusei PCR NOT DETECTED (Not Detect); Trichomonas vaginalis PCR NOT DETECTED (Not Detect)
== END 2024-11-25 16:40 | disposition home or self-care (01) ==
PROVIDERS: Registered Nurse Emergency; Emergency Provider Emergency Medicine; PCP Internal Medicine
DX: K59.00 Constipation, unspecified (principal); R10.2 Pelvic and perineal pain; R10.814 Left lower quadrant abdominal tenderness; E11.9 Type 2 diabetes mellitus without complications; I10 Essential (primary) hypertension; Z79.01 Long term (current) use of anticoagulants; Z79.899 Other long term (current) drug therapy; Z87.891 Personal history of nicotine dependence
CPT/HCPCS: 36415; 74177; 76830; 76856; 80053; 81003; 81515; 83735; 85025; 87491; 87591; 93975; 99282; 99284; Q9967

== ENCOUNTER → 2024-11-25 10:43 | Outpatient (BNV) | payer OTHER, SELFPAY | PROVIDERS: Emergency Provider Emergency Medicine; PCP Internal Medicine; Visit Provider Radiology Diagnostic Radiology | DX: R10.817 Generalized abdominal tenderness (principal); N83.202 Unspecified ovarian cyst, left side | CPT/HCPCS: 74177; 76830; 76856; 93975 ==

== ENCOUNTER 2024-11-30 11:35 | Outpatient (REF) | payer OTHER, SELFPAY ==
[2024-11-30 11:46] LABS: MANUAL DIFF FLAG NO
[2024-11-30 12:03] LABS: Basophils Absolute Auto 0.1 X10*3/uL (0.0-0.2); Basophils Percent Auto 0.6 % (0-2); Eosinophils Absolute Auto 0.2 X10*3/uL (0.0-0.4); Hematocrit 38.5 % (37.0-47.0); Hemoglobin 12.5 g/dl (12.0-16.0); Imm Gran Abs Auto 0.02 X10*3/uL (0.00-0.03); Imm Gran Pct Auto 0.2 % (0.0-0.4); Lymphocytes Absolute Auto 3.3 X10*3/uL (1.2-4.9); Lymphocytes Percent Auto 40.9 % (20-40); Mean Corpuscular HGB Conc 32.5 g/dl (31.0-35.0); Mean Corpuscular Hemoglobin 24.6 pg (27.0-33.0); Mean Corpuscular Volume 75.8 fL (80.0-98.0); Mean Platelet Volume 9.9 fL (9.4-12.3); Monocytes Absolute Auto 0.5 X10*3/uL (0.1-1.2); Monocytes Percent Auto 5.8 % (2-11); Neutrophils Absolute Auto 4.1 x10*3/uL (2.0-8.3); Neutrophils Percent Auto 50.5 % (45-73); Platelet Count 266 X10*3/uL (160-400); Red Blood Count 5.08 X10*6/uL (4.20-5.50); Red Cell Distribution Width 15.5 % (11.0-16.0); White Blood Count 8.1 X10*3/uL (4.8-10.8)
[2024-11-30 12:07] LABS: D Dimer High Sensitivity < 150 NG/ML
[2024-11-30 13:00] LABS: Alanine Aminotransferase 18 U/L (0-31); Albumin Level 4.3 g/dL (3.5-5.0); Anion Gap 12 (12-20); Aspartate Amino Transferase 17 U/L (5-31); Bilirubin Total 0.3 mg/dL (0.0-1.0); Blood Urea Nitrogen 17 mg/dL (9-16); Calcium 9.9 mg/dL (8.4-10.2); Carbon Dioxide 32 mmol/L (22-29); Chloride 103 mmol/L (96-108); Cholesterol 215 mg/dL (<200); Estimated Glomerular Filt Rate > 60; Ferritin 32 ng/mL (10-250); Glucose Random 108 mg/dL (60-115); HDL Cholesterol 55 mg/dL (>40); LDL Cholesterol Calculated 143 mg/dL (<100); Potassium 3.9 mmol/L (3.3-5.1); Sodium 143 mmol/L (135-145); Total Protein 7.8 g/dL (6.5-8.0); Triglycerides 88 mg/dL (<150)
[2024-11-30 13:46] LABS: Alkaline Phosphatase 75 U/L (39-117)
--- OUTSIDE RECORDS SUMMARY | 2024-11-30 14:05 | XMS_ITS | Patient Health Record ---
Author Organization [facility] Address [address] [place] [address] Care Team Providers Care Millwright Helper Name Role Phone Daylin Ruth Primary Care Provider Unavailab Irasema Hayden Unavailable [phone] Allergies Allergen (clinical drug ingredient) Drug/Non Drug [...] W/U Status Risk Notes Problem Interstitial myositis (80477638) Interstitial myositis of right foot (M60.171) Active confirmed Encounters Encounter Location Date Provider Diagnosis [facility] [address] [place] [address] 12/11/2023 Irasema Sharon Plan Of Treatment Pending Test Test Name Order Date X ray : Foot, right 3V 10/23/2023 Insurance Providers Payer Name Payer Address Payer Phone Subscriber Number Group Number Insured Name Patient Relationship to Insured Coverage Start Date Coverage End Date [facility] [address] [place] [address] [id number] Klarissa Gomez Self - patient is the insured Medical (General) History Medical History History ICD Code asthma Back,Hip,and Knee pain Depression High blood pressure Poor circulation Psoriasis/eczema Sciatica Chicken pox Surgical History Surgery Date(Month/Year) 1995/2001/2005
--- OUTSIDE RECORDS SUMMARY | 2024-11-30 14:05 | XMS_ITS | Encounter Summary ---
Author Organization [facility] Address [address] [place] [address] Phone Care Team Providers Care Telegraph Mechanic Name Role Phone Hetal Valencia MD Primary Care Provider [phone] Encounter Details Date Type Department Care Team (Late st Contact Info) Description 11/24/2012 Documentation EM Family Medicine [address] [place] [address] Family Medicine, Physician [address] [place], [place] [phone] Social History Tobacco Use Types Packs/Day Years [...] on filedocumented in this encounter Care Teams Telegraph Mechanic Relationship Specialty Start Date End Date Hetal Valencia MD [address] [place] [address] [place] [address] PCP - General 04/05/17 documented as of this encounter
--- OUTSIDE RECORDS SUMMARY | 2024-11-30 14:05 | XMS_ITS | Clinical Summary ---
Author Organization [facility] Address [address] [place] [address] Phone Care Team Providers Care Fabric Machine Operator Name Role Phone Hetal Valencia MD Primary [...] age to complete this topic Care Teams Fabric Machine Operator Relationship Specialty Start Date End Date Hetal Valencia MD [address] [place] [address] [place] [address] PCP - General 04/05/17
--- OUTSIDE RECORDS SUMMARY | 2024-11-30 14:05 | XMS_ITS | Encounter Summary ---
Author Organization [facility] Address [address] [place] [address] Phone Care Team Providers Care Product Operations Associate Name Role Phone Hetal Valencia MD Primary Care Provider [phone] Encounter Details Date Type Department Care Team (Late st Contact Info) Description 11/24/2012 Documentation EM Family Medicine [address] [place] [address] Family Medicine, Physician [address] [place], [place] [phone] Social History Tobacco Use Types Packs/Day Years [...] on filedocumented in this encounter Care Teams Product Operations Associate Relationship Specialty Start Date End Date Hetal Valencia MD [address] [place] [address] [place] [address] PCP - General 04/05/17 documented as of this encounter
--- OUTSIDE RECORDS SUMMARY | 2024-11-30 14:05 | XMS_ITS | Encounter Summary ---
Author Organization [facility] Address [address] [place] [address] Phone Care Team Providers Care Visual Education Teacher Name Role Phone Hetal Valencia MD Primary Care Provider Encounter Details Date Type Department Care Team (Late st Contact Info) Description 11/24/2012 Documentation EM Family Medicine [address] [place] [address] Family Medicine, Physician [address] [place], [place] [phone] Social History Tobacco Use Types Packs/Day Years [...] on filedocumented in this encounter Care Teams Visual Education Teacher Relationship Specialty Start Date End Date Hetal Valencia MD [address] [place] [address] [place] [address] PCP - General 04/05/17 documented as of this encounter
--- OUTSIDE RECORDS SUMMARY | 2024-11-30 14:05 | XMS_ITS ---
Author Organization [facility] Address [address] [place] [address] Care Team Providers Care Geotechnical Operating Engineer Name Role Phone Daylin Ruth Primary Care Provider Unavailab Irasema Hayden [phone] Encounters Encounter Location Date Provider Diagnosis [facility] [address] [place] [address] 12/11/2023 Irasema Herrera Plan Of Treatment No Information Progress Notes * Tamir GOMEZidaDOB:[birth year] (49 yo F)Acc No.[id number]:12/11/2023 Progress Notes Patient:?Klarissa GOMEZ Provider:?Irasema Herrera DPM :1975???Age:48 Y???Sex:Female D ate:12/11/2023 Address:[address] [place], [place] [id number] Pcp:Daylin Ruth Subjective: * Chief Complaints: * ??? * Medical History:? Objective: * Vitals:? Assessment: Plan: * Treatment: * Images: * The named appointment provid er may or may not be the originator of this progress note, and it is not deemed complete until electronically signed by the appointment provider. Sign off status: Pending * Provider:?Irasema Herrera DPM Date:? Generated for Tonioi anderson/Salima/eTransmitting on:?11/30/2024 02:05 PM EDT
--- OUTSIDE RECORDS SUMMARY | 2024-11-30 14:05 | XMS_ITS | Encounter Summary ---
Author Organization [facility] Address [address] [place] [address] Phone Care Team Providers Care Data Communications Analyst Name Role Phone Hetal Valencia MD Primary Care Provider [phone] Encounter Details Date Type Department Care Team (Late st Contact Info) Description 11/24/2012 Documentation EM Family Medicine [address] [place] [address] Family Medicine, Physician [address] [place], [place] [phone] Social History Tobacco Use Types Packs/Day Years [...] on filedocumented in this encounter Care Teams Data Communications Analyst Relationship Specialty Start Date End Date Hetal Valencia MD [address] [place] [address] [place] [address] PCP - General 04/05/17 documented as of this encounter
--- OUTSIDE RECORDS SUMMARY | 2024-11-30 14:06 | XMS_ITS | Encounter Summary ---
Author Organization [facility] Address [address] [place] [address] Phone Care Team Providers Care Tassel Maker Name Role Phone Hetal Valencia MD Primary Care Provider [phone] Encounter Details Date Type Department Care Team (Late st Contact Info) Description 11/24/2012 Documentation EM Family Medicine [address] [place] [address] Family Medicine, Physician [address] [place], [place] [phone] Social History Tobacco Use Types Packs/Day Years [...] on filedocumented in this encounter Care Teams Tassel Maker Relationship Specialty Start Date End Date Hetal Valencia MD [address] [place] [address] [place]onso [address] PCP - General 04/05/17 documented as of this encounter
--- OUTSIDE RECORDS SUMMARY | 2024-11-30 14:06 | XMS_ITS | Encounter Summary ---
Author Organization [facility] Address [address] [place] [address] Phone Care Team Providers Care Binding End Stitcher Name Role Phone Hetal Valencia MD Primary Care Provider [phone] Encounter Details Date Type Department Care Team (Late st Contact Info) Description 11/24/2012 Documentation EM Family Medicine [address] [place] [address] Family Medicine, Physician [address] [place], [place] [phone] Social History Tobacco Use Types Packs/Day Years [...] on filedocumented in this encounter Care Teams Binding End Stitcher Relationship Specialty Start Date End Date Hetal Valencia MD [address] [place] [address] [place]onso [address] PCP - General 04/05/17 documented as of this encounter
--- OUTSIDE RECORDS SUMMARY | 2024-11-30 14:06 | XMS_ITS | Continuity of Care Document ---
Author Organization [facility] Address [address] [place] [address]- Care Team Providers Care Wrapper Hands Sprayer Name Role Phone Faraz MACDONALD, Daylin Rowe Primary [id number]28[facility] - 11/28/[address] [address] Encounter Diagnosis Low back pain, unspecified(Final) - Pain in thoracic spine(Final) - Discharge Disposition: A-D/C Home Attending Physician: Daylin Ruth MD Admitting Physician: Daylin Ruth MD Referring Physician: Willow Bustillo MD Encounter Type: Disch Recurring OP Allergies, Adverse Reactions, Alerts Substance Criticality Severity Reaction Reaction Severity Status sertraline 1 Low criticality Mild A ctive Wellbutrin 2, 3 Low criticality Mild Active Shrimp Active 1adverse reaction- nausea and palpatations 2adverse reaction - nausea and palpatations 3adverse reaction- urticara and rash Immunizations Given and Recorded Vaccine Date Status Refusal Reason SARS-CoV-2 (COVID-19) mRNA-1273 vaccine 12/28/21 R ecorded SARS-CoV-2 (COVID-19) mRNA BNT-162b2 vac 09/12/21 Recorded SARS-CoV-2 (COVID-19) mRNA BNT-162b2 vac 08/22/21 Recorded Medications Advair Diskus 250 mcg-50 mcg inhalation powder 1, puffs, Inhalation, 2 times a day, # 180 each, Refills 0, Maintenance, 12/10/23 4:24:00 PM EDT, Powder Start Date: 12/10/23 Status: Ordered Quantity: 180.0 Unit: each Repeat number: 1 Albuterol (Eqv-ProAir HFA) 2 puffs, Inhalation, Every 6 hours, 0 Refills, Maintenance, 12/10/23 4:09:00 PM EDT, Partial fill upon patient request if the prescription is for a schedule II opioid drug. Start Date: 12/10/23 Status: Ordered Repeat number: 1 apixaban 5 mg oral tablet 1 tablet = 5 mg, By Mouth, 2 times a day, # 180 tablet, 0 Refills, Maintenance, 08/18/24 10:03:00 AM EST, Tablet, [facility]/pharmacy #[id number], Partial fill upon patient request if the prescription is for a schedule II opioid drug., 155, cm, 08/13/24 15:36:00 EST, Height, 150, kg, 08/12/24 8:50:00 EST, Dry Weight Start Date: 08/18/24 Stop Date: 11/16/24 Status: Ordered Quantity: 180.0 Unit: tablet Repeat number: 1 ferrous sulfate 325 mg oral enteric coated tablet 325 mg, 1, tablet, By Mouth, Every other day, # 45 tablet, Refills 1, Tot. Refills 1, Maintenance, 11/25/24 1:09:00 PM EDT, Route to Pharmacy Electronically, [facility]/pharmacy #[id number], Partial fill upon patient request if the prescription is for a schedule II opioid drug., 155, cm, 11/11/24 9:57:00 EDT, Height, 150, kg, 08/12/24 8:50:00 EST, Dry Weight Start Date: 11/25/24 Status: Ordered Quantity: 45.0 Unit: tablet Repeat number: 2 Indication: Iron deficiency anemia, unspecified fluticasone-salmeterol 250 mcg-50 mcg inhalation powder 0 Refill(s), Inhale 1 Puff into the lungs as needed., Refills 0, 11/11/24 10:29:00 AM EDT Start Date: 11/11/24 Status: Ordered Repeat number: 1 hydrochlorothiazide-lisinopril 25 mg-20 mg oral tablet 2 tablet, By Mouth, Daily, # 60 tablet, 0 Refills, Maintenance, 12/10/23 4:25:00 PM EDT, Tablet, Partial fill upon patient request if the prescription is for a schedule II opioid drug. Start Date: 12/10/23 Status: Ordered Quantity: 60.0 Unit: tablet Repeat number: 1 hydrOXYzine hydrochloride 25 mg oral tablet 25 Unknown, by mouth, 0 Refill(s), 0 Refills, 08/04/24 2:30:00 PM EST, Partial fill upon patient request if the prescription is for a schedule II opioid drug. Start Date: 08/04/24 Status: Ordered Repeat number: 1 ibuprofen 600 mg oral tablet 1 Unknown, by mouth, 0 Refill(s), Refills 0, 08/10/24 11:00:00 AM EST, Partial fill upon patient request if the prescription is for a schedule II opioid drug. Start Date: 08/10/24 Status: Ordered Repeat number: 1 ibuprofen 800 mg oral tablet 800 Unknown, by mouth, 0 Refill(s), Refills 0, 08/01/24 10:00:00 PM EST, Partial fill upon patient request if the prescription is for a schedule II opioid drug. Start Date: 08/01/24 Status: Ordered Repeat number: 1 MiraLax oral powder for reconstitution by mouth, 0 Refill(s), 0 Refills, 08/02/24 9:00:00 AM EST, Partial fill upon patient request if the prescription is for a schedule II opioid drug. Start Date: 08/02/24 Status: Ordered Repeat number: 1 oxyCODONE 5 mg oral tablet 5 Unknown, by mouth, 0 Refill(s), Refills 0, 08/03/24 11:00:00 AM EST, Partial fill upon patient request if the prescription is for a schedule II opioid drug. Start Date: 08/03/24 Status: Ordered Repeat number: 1 prochlorperazine 10 mg oral tablet 1 Unknown, by mouth, 0 Refill(s), 0 Refills, 08/03/24 11:15:00 AM EST, Partial fill upon patient request if the prescription is for a schedule II opioid drug. Start Date: 08/03/24 Status: Ordered Repeat number: 1 senna 187 mg oral tablet 1 Unknown, by mouth, 0 Refill(s), 0 Refills, 08/01/24 5:07:00 PM EST, Partial fill upon patient request if the prescription is for a schedule II opioid drug. Start Date: 08/01/24 Status: Ordered Repeat number: 1 Singulair 10 mg oral tablet 10 mg, 1, tablet, By Mouth, Daily, # 90 tablet, Refills 0, Maintenance, 12/10/23 4:25:00 PM EDT, Partial fill upon patient request if the prescription is for a schedule II opioid drug. Start Date: 12/10/23 Status: Ordered Quantity: 90.0 Unit: tablet Repeat number: 1 Tylenol 325 mg oral tablet 975 mg, By Mouth, Every 6 hours, Refills 0, Maintenance, 06/23/24 12:51:00 PM EDT, Partial fill upon patient request if the prescription is for a schedule II opioid drug. Start Date: 06/23/24 Status: Ordered Repeat number: 1 Zestoretic 25 mg-20 mg oral tablet 2 Unknown, by mouth, 0 Refill(s), 0 Refills, 08/01/24 8:00:00 PM EST, Partial fill upon patient request if the prescription is for a schedule II opioid drug. Start Date: 08/01/24 Status: Ordered Repeat number: 1 Problem List Condition Confirmation Course Effective Dates Status Health St atus Informant Asthma Confirmed Active Depression Confirmed Active Diabetes mellitus, type 2 - suspected based on HgbA1c 7.4% on 07/05/24 Confirmed Active Essential hypertension Confirmed Active Herpes labialis Confirmed Active Menorrhagia with irregular cycle Confirmed Active Positive PPD 1 Confirmed 11/29/10 Active Pulmonary embolus Confirmed Active Severe obesity Confirmed Active TACO (transfusion associated circulatory overload) 2 Confirmed 07/08/24 Active 115mm. Neg in 2005. Pt cancelled sched appts x 2. Letter sent to the referring source. 2Patient at risk for Transfusion-Associated Circulatory Overload (TACO). The use of slow infusion rates, the administration of weston-transfusion diuretics where not clinically contraindicated, and/or the transfusion of split units of PRBCs should be considered in any future hemotherapy interventions.Consult Transfusion Medicine Services if any questions. Social History Social History Type Response Smoking Status Former smoker, quit more than 30 days ago;Never entered on: 12/10/23 Sex Sex Representation Female (finding) Patient Care team information Care Team Personnel Name: Sydney Nvaa RN Position: S RN Member Role: Primary Care Nurse Name: Shoaib Nolan RN Position: S RN Member Role: Primary Care Nurse Name: Daylin Ruth MD Position: [facility] Outreach Member Role: PCP Address: [address] [place] [address]- [place] Telecom: Name: Ct Britt RN Position: [facility] RN Member Role: Primary Care Nurse Name: Toya Champagne RN Position: S RN Member Role: Primary Care Nurse Name: Zoila Velazquez RN Position: [facility] RN Member Role: Primary Care Nurse Name: Jennifer Gracia RN Position: [facility] RN Member Role: Primary Care Nurse Name: Loraine Courtney RN Position: [facility] RN Member Role: Primary Care Nurse Name: Michael Hernandez RN Position: [facility] RN Member Role: Primary Care Nurse Name: Sunny Taylor RN Position: [facility] RN Member Role: Primary Care Nurse Name: Renetta Simpson RN Position: [facility] RN Member Role: Primary Care Nurse Name: Meron Pearson RN Position: [facility] RN Member Role: Primary Care Nurse Name: Joyce Davis RN Position: [facility] RN Member Role: Primary Care Nurse Name: Dominick Hoffmann RN Position: [facility] RN Member Role: Primary Care Nurse Name: Kasey Rosenthal RN Position: [facility] RN Member Role: Primary Care Nurse Name: Jaqueline Rosario RN Position: [facility] RN Member Role: Primary Care Nurse Name: Marry Johnson RN Position: [facility] RN Member Role: Primary Care Nurse Name: Liz See RN Position: [facility] RN Member Role: Primary Care Nurse Name: Alyssa eKnt RN Position: [facility] RN Member Role: Primary Care Nurse Name: Parisa Raines RN Position: [facility] RN Member Role: Primary Care Nurse Name: Franca Mehta RN Position: [facility] RN Member Role: Primary Care Nurse Name: Josue Brice RN Position: [facility] RN Member Role: Primary Care Nurse Name: Jack Zeng MD Position: [facility] Renal MD Member Role: Lifetime Consulting Physician Address: [address] [facility] [address] [facility] [place] [address]- [place] Telecom: Name: Andrez Harper RN Position: [facility] RN Member Role: Primary Care Nurse Name: Jamshid Tinoco RN Position: [facility] RN Member Role: Primary Care Nurse Name: Dailla Mcmahon RN Position: S RN Member Role: Primary Care Nurse Name: Nury Mayfield RN Position: S RN Member Role: Primary Care Nurse Name: Hussain Melchor RN Position: [facility] RN Member Role: Primary Care Nurse Care Team Related Persons Name: SPENCER MARVIN Name: SAMIA VEGA Insurance Providers Guarantor name: [facility] Information #: 1 Payer: [facility] FF NON BHP HMO Member Number: [id number] Policy Number: NA Group Number: NA Health [facility] Information #: 2 Payer: [facility] FF NON BHP HMO Member Number: [id number] Policy Number: NA Group Number: NA
--- OUTSIDE RECORDS SUMMARY | 2024-11-30 14:06 | XMS_ITS | Encounter Summary ---
Author Organization [facility] Address [address] [place] [address] Phone Care Team Providers Care Mixer Dry Food Products Name Role Phone Hetal Valencia MD Primary Care Provider [phone] Encounter Details Date Type Department Care Team (Late st Contact Info) Description 11/24/2012 Documentation EM Family Medicine [address] [place] [address] Family Medicine, Physician [address] [place], [place] [phone] Social History Tobacco Use Types Packs/Day Years [...] on filedocumented in this encounter Care Teams Mixer Dry Food Products Relationship Specialty Start Date End Date Hetal Valencia MD [address] [place] [address] [place] Alonso [address] PCP - General 04/05/17 documented as of this encounter
--- OUTSIDE RECORDS SUMMARY | 2024-11-30 14:06 | XMS_ITS ---
Author Organization [facility] Address [address] [facility] [place] [address] Care Team Providers Care Culture Room Worker Name Role Phone Daylin Ruth Primary Care Provider Unavailab Irasema Hayden Unavailable [phone] Allergies Allergen (clinical drug ingredient) Drug/Non Drug [...] W/U Status Risk Notes Problem Interstitial myositis (96058744) Interstitial myositis of right foot (M60.171) Active confirmed Vital Signs Height 5 ft 1 in in 10/23/2023 Weight 289 lbs 10/23/2023 BMI 54.6 kg/m2 10/23/2023 Encounters Encounter Location Date Provider Diagnosis [facility] [address] [address] 10/23/2023 Irasema Herrera Tinea pedis of both [...] * Nolan GOMEZOB:[birth year] (48 yo F)Acc No.[id number]:10/23/2023 Progress Notes Patient:?Klarissa Gomez Provider:?Irasema Herrera DPM :1975???Age:48 Y???Sex:Female D ate:10/23/2023 Address:[facility] [place] Pcp:Daylin Ruth Subjective: * Chief Complaints: * [...] 3. ?no Exercise. ?Marital status: single. ?Occupation: [employer]. * Medications:?TakingSingulair Lisinopril Albuterol Taking Singulair Taking [...] ray : Foot, right 3V * Procedure Codes:?24832 X-RAY EXAM OF RIGHT FOOT 3V, Modifiers: [...] Interfil injection therapy, as well as surgical [place]/Endoscopic Fasciitomy surgical procedures if needed. Recommendations were [...] Herrera DPM Date:? Generated for Rosa barron/Salima/eTransmitting on:?11/30/2024 02:05 PM EDT History and Physical Notes * [...]
--- OUTSIDE RECORDS SUMMARY | 2024-11-30 14:06 | XMS_ITS ---
Author Organization [facility] Address [address] [place] [address] [place] [address] Care Team Providers Care Education Program Coordinator Name Role Phone AbhiDaylin pacheco Primary Care Provider Unavailab Irasema Hayden Unavailable [phone] REASON FOR VISIT no show 12/10 Encounters Encounter Location Date Provider Diagnosis [facility] [address] [place] [address] 12/11/2023 Irasema Herrera Plan Of Treatment No Information Progress Notes * Tamir GOMEZidaDOB:[birth year] (48 yo F)Acc No.[id number]:12/11/2023 Patient:?Klarissa Gomez :1975???Age:48 Y???Sex:Female Address:[address] [place] [address], [address] * true * Date:? Generated for Tonioi anderson/Salima/eTransmitting on:?11/30/2024 02:05 PM EDT
--- OUTSIDE RECORDS SUMMARY | 2024-11-30 14:06 | XMS_ITS | Clinical Summary ---
Author Organization [facility] Address [address] [place] [address] Phone Care Team Providers Care Executive Pilot Name Role Phone Daylin Ruth MD Primary Care Provider [phone] Allergies Active Allergy Reactions Criticality Noted Date [...] complete [place] [id number] [facility] MEDICAID - [place] Care Teams Executive Pilot Relationship Specialty Start Date End Date Daylin Ruth MD [address] [facility] [address] [place], [place] PCP - General Internal Medicine 05/20/17
== END 2024-11-30 11:36 | disposition home or self-care (01) ==
LOC: HO.LAB 11:35
PROVIDERS: PCP Internal Medicine; Visit Provider Internal Medicine
DX: A41.9 Sepsis, unspecified organism (principal); I26.99 Other pulmonary embolism without acute cor pulmonale; M51.16 Intervertebral disc disorders with radiculopathy, lumbar region; N83.202 Unspecified ovarian cyst, left side; R63.4 Abnormal weight loss; Z95.828 Presence of other vascular implants and grafts; Z13.6 Encounter for screening for cardiovascular disorders
CPT/HCPCS: 36415; 80053; 80061; 82728; 85025; 85379

== ENCOUNTER 2025-01-15 14:57 | Outpatient (AMB) | payer OTHER, SELFPAY ==
--- NOTE | 2025-01-15 14:58 | A.OFFVIS_ITS ---
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 Following an extensive hospital stay at [facility] [place] from May to July 2024 due to complications from a ruptured hemorrhagic cyst with hemoperitoneum, diagnostic laparoscopic surgery led to postoperative issues including ileus, pulmonary emboli, and DVT, necessitating an IVC filter, contributing to her current presentation from which she still recovers and experiences ongoing diffuse abdominal discomfort. An abdominal CT scan showed L5-S1 disc degeneration correlating with her symptoms. The patient's pain, rated as severe, disrupts her daily life and sleep, resulting in difficulties performing routine activities and necessitating frequent periods of inactivity. 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 The patient's current pain management is limited by the concurrent need for Eliquis with associated anticoagulation risks, negating the use of NSAIDs, combined with ineffective relief from Tylenol alone. She reports prior use of naproxen was partially benefical. - Onset/Timing: Chronic since childbirth 10+ years ago, exacerbated past 2 months. - Quality/Character: Aching, dull, throbbing, tight, shooting, constant, rated 7/10 sleeping, 9/10 morning and daytime - Primary Location: Low back and left buttock into left lateral hip to the knee level. - Radiation: From back to left buttock, side of left hip. - Exacerbating Factors: Sitting, bending, side sleeping, sedentary periods, changing positions. - Relieving Factors: Supine position, Tylenol, heat, hot showers. - Interference: Affects walking, sitting, standing; disrupts sleep; daily activities limited post-exertion due to pain. - Affect: Patient reports significant impact on quality of life, feeling constantly in pain, leading to frustration and fatigue. - Analgesia: Currently using Tylenol, reports ineffective pain control with a severity rating of 7-9/10. - Adverse Effects: Concern over gastrointestinal issues with past NSAID use, no current reported adverse effects from existing medication regimen. - Activities of Daily Living: Severe limitation in daily activities, pain significantly impacts mobility and ability to maintain routine activities. - Aberrant Drug Related Behaviors: None reported, stated adherence expressively to current medical regimen. [facility] Medical History (Updated 01/15/25 @ 15:47 by CARLITA Martinez) DVT (deep venous thrombosis) (~2023) Pulmonary emboli (~2023) HTN (hypertension) Asthma Psoriasis Atopic eczema Surgical History (Updated 01/15/25 @ 15:40 by CARLITA Martinez) H/O exploratory laparotomy (~2023) History of tubal ligation Hx of section Family History Father Asthma Cancer Mother Hypertension Sister Hypertension Brother No problems noted. Son No problems noted. Son ADHD Autism Daughter Asthma Eczema Social History Alcohol intake: current Alcohol intake frequency: a few times a month Alcohol type: wine Patient Tobacco Use Status: Former Tobacco user Female Reproductive History Menstrual Age of Menarche: 13 Review of Systems Const Details: - Musculoskeletal: Reports chronic back pain; denies previous back surgery or injections. - Neurological: Denies numbness or tingling, no foot drop, no bladder or bowel dysfunction or saddle anesthesia - Gastrointestinal: Denies side effects from medications recently taken. - Respiratory: Reports snoring, possible sleep apnea; denies any known history. - Endocrine/Metabolic: Denies history of diabetes. All systems reviewed & are unremarkable except as noted in HPI and below Physical Exam Vital Signs: BMI result Body Mass Index 49.8 General: Appears afebrile. Alert and oriented. Mood and affect appropriate. Follows and participates in conversation appropriately. Respiratory effort is unlabored. No cough. Able to transition from sit to stand unassisted. Ambulates with bilaterally normal heel strike and toe off, reports back pain increase with heel standing. General: Yes no CVA tenderness Back/Spine/Pelvis Other: Patient is able to walk and stand on heels and tip toes with mild difficulty with heel standing otherwise demonstrating good motor tone. Slightly antalgic gait with limping. Lumbar flexion and bending reproduces moderate to severe pain, lumbar extension mild to moderate pain. Demonstrates 5/5 right and 4/5 left strength of quadriceps bilaterally as well as flexion/dorsiflexion of bilateral feet against resistance. 2+ pedal pulses bilaterally. Straight leg rise with dorsiflexion negative bilaterally. +1 patellar and achilles reflexes bilaterally. Facet loading test positive bilaterally. Charles sign, Jw?s, Pelvic compression and Stinchfield tests are positive bilaterally, left>right. No groin pain with I/E hip rotations. Valsalva maneuver negative. Back: no CVA tenderness Cervical Spine: cervical ROM normal, cervical muscular tenderness and No Cervical spine tenderness Thoracic/Lumbar Spine: thoracic and lumbar spine normal to inspection, No Thoracic/lumbar spine scar(s), Lasegue's sign negative, straight leg raise negative bilaterally, pain with thoraco-lumbar ROM, paraspinal muscle tenderness, thoraco-lumbar ROM limited, No thoracic spinal tenderness and lumbar spinal tenderness (L4-S1) Pelvis: buttock tenderness on the left Sacroiliac joints: bilaterally (left>right) tender to palpation Extrem General: Yes capillary refill normal, Yes no clubbing, cyanosis or edema and Yes no calf tenderness Results Reviewed Results Reviewed: CT abdomen pelvis w IV con 11/25/24 BONES / SOFT TISSUES: There are postsurgical changes involving the anterior abdominal wall. There is degenerative disc disease at the L5-S1 level. Assessment & Plan Assessment & Plan (1) Low back pain: Code(s): M54.50 - Low back pain, unspecified Category: Medical (2) Sacroiliac joint pain: Code(s): M53.3 - Sacrococcygeal disorders, not elsewhere classified Category: Medical (3) Vertebrogenic low back pain: Code(s): M54.51 - Vertebrogenic low back pain Category: Medical (4) Lumbar degenerative disc disease: Code(s): M51.369 - Other intervertebral disc degeneration, lumbar region without mention of lumbar back pain or lower extremity pain Category: Medical (5) Lumbosacral spondylosis: Code(s): M47.817 - Spondylosis without myelopathy or radiculopathy, lumbosacral region Category: Medical Plan The primary approach is to conduct imaging studies, including an MRI and X-ray, to assess for neural integrity and compression and structural issues contributing to the patient's chronic low back pain and left leg radiculopathy with discogenic and SI joint pain components. Discussed interventional treatments for current pain generators of multifactorial back pain. Patient has attempted PT a month ago but could not continue due to significant pain and expensive co-pays. Instructions will focus on the importance of maintaining an active lifestyle with ergonomic modifications at work such as employing a standing desk and weight optimization, important in reducing disc degeneration risk factors. All quetions and concerns have been answered and patient agreed with the plan. Patient will return to the clinic to discuss results of the MRI findings when it is done and consider interventional therapy as indicated. Patient was informed and verbally consented to the use of an ambient scribe for clinic note documentation during this visit. Orders: Orders XR lumbar spine 6V w bending Today M54.50 - Low back pain, unspecified MR lumbar spine wo con Today F40.240 - Claustrophobia, M47.817 - Spondylosis without myelopathy or radiculopathy, lumbosacral region, M51.369 - Other intervertebral disc degeneration, lumbar region without mention of lumbar back pain or lower extremity pain, M54.50 - Low back pain, unspecified, M54.51 - Vertebrogenic low back pain XR sacroiliac joint min 3V Today M53.3 - Sacrococcygeal disorders, not elsewhere classified Coding Level of Care Code New Pt Level 4 (00106) Diagnoses Low back pain M54.50 Sacroiliac joint pain M53.3 Vertebrogenic low back pain M54.51 Lumbar degenerative disc disease M51.369 Lumbosacral spondylosis M47.817
[2025-01-15 14:59] VITALS: BP 132/69; PULSE 80; O2SAT 95; BMI 49.8
--- OUTSIDE RECORDS SUMMARY | 2025-01-15 15:00 | XMS_ITS ---
Author Organization [facility] Address [address] [place] [id number] Care Team Providers Care Settlement Processor Name Role Phone Daylin Ruth Primary Care Provider Unavailab Irasema Hayden [phone] Encounters Encounter Location Date Provider Diagnosis [facility] [address] [place] [address] 12/11/2023 Irasema Herrera Plan Of Treatment No Information Progress Notes * Tamir GOMEZidaDOB:[birth year] (49 yo F)Acc No.[id number]:12/11/2023 Progress Notes Patient:?Klarissa GOMEZ Provider:?Irasema Herrera DPM :1975???Age:48 Y???Sex:Female D ate:12/11/2023 Address:[address] [place], [place] [id number] Pcp:Daylin Ruth Subjective: * Chief Complaints: * ??? * Medical History:? Objective: * Vitals:? Assessment: Plan: * Treatment: * Images: * The named appointment provid er may or may not be the originator of this progress note, and it is not deemed complete until electronically signed by the appointment provider. Sign off status: Pending * Provider:?Iraesma Herrera DPM Date:? Generated for Tonioi anderson/Salima/eTransmitting on:?01/15/2025 02:59 PM EDT
== END 2025-01-15 15:32 | disposition home or self-care (01) ==
LOC: HO.PMC 14:58
PROVIDERS: PCP Internal Medicine; Visit Provider Nurse Practitioner Family
DX: M54.50 Low back pain, unspecified (principal); M53.3 Sacrococcygeal disorders, not elsewhere classified; M54.51 Vertebrogenic low back pain; M51.369 Other intervertebral disc degeneration, lumbar region without mention of lumbar back pain or lower extremity pain; M47.817 Spondylosis without myelopathy or radiculopathy, lumbosacral region
CPT/HCPCS: 99204

== ENCOUNTER 2025-04-05 09:32 | Emergency (ER) | payer OTHER, SELFPAY ==
--- OUTSIDE RECORDS SUMMARY | 2023-12-11 05:30 | XMS_ITS ---
Author Organization [facility] Address [address] [place] [id number] Care Team Providers Care Business Partner Name Role Phone Daylin Ruth Primary Care Provider Unavailab Irasema Hayden Unavailable [phone] Encounters Encounter Location Date Provider Diagnosis [facility] [address] [place] [address] 12/11/2023 Irasema Herrera Plan Of Treatment No Information Progress Notes * Tamir GOMEZidaDOB:[birth year] (49 yo F)Acc No.[id number]:12/11/2023 Progress Notes Patient: Klarissa LUNDBERG Provider: Chirag Herrera DPM :1975 A ge:48 Y S ex:Female Date:12/11/2023 Address:[address] [place], [place] [id number] Pcp:Daylin Ruth Subjective: * Chief Complaints: * * Medical History: Objective: * Vitals: Assessment: Plan: * Treatment: * Images: * The named appointment provid er may or may not be the originator of this progress note, and it is not deemed complete until electronically signed by the appointment provider. Sign off status: Pending * Provider: Chirag Herrera DPM Date: 12/11/2023 Generated for Rosa barron/Salima/eTransmitting on: 04/05/2025 10:45 AM EDT
--- NOTE | ~2025-04-05 | US_ITS ---
EXAMINATION: US PELVIS CLINICAL INFORMATION: Pelvic pain. History of cysts. COMPARISON: November 25, 2024. Correlated to CT abdomen and pelvis dated November 25, 2024. TECHNIQUE: Ultrasound of the pelvis is performed using both transabdominal and transvaginal transducers along with Doppler. Transvaginal imaging is performed due to inadequate visualization transabdominally. FINDINGS: Uterus: The uterus is retroverted flexion and measures 12 x 6 x 6 cm. Volume: 197 cc. The double wall endometrial thickness is 4 mm. There is a 1.8 cm hypoechoic lesion within the myometrium of the body of the uterus. Focal calcification in the cervix . Adnexa: The ovaries are identified on the transabdominal approach.. There is flow on color Doppler interrogation to the ovaries. No free fluid in the cul-de-sac. Small nabothian cysts. Right ovary measures 3 x 2 x 2 cm. Volume: 7 cc. Left ovary measures 6 x 5 x 5 cm. Volume: 62 cc. There is a 4.4 cm lobulated anechoic lesion with internal septation. No flow on color Doppler interrogation. Less than 2 cm cystic lesions in the left adnexa. US/US pelvic ovarian doppler IMPRESSION: 4.4 cm complex septated cystic lesion left adnexa. No ovarian torsion. 1.8 cm uterine fibroid. Normal endometrial stripe. Electronically signed by: Tera Hastings MD 04/05/2025 12:32 PM EDT RP
--- NOTE | ~2025-04-05 | US_ITS ---
EXAMINATION: US PELVIS CLINICAL INFORMATION: Pelvic pain. History of cysts. COMPARISON: November 25, 2024. Correlated to CT abdomen and pelvis dated November 25, 2024. TECHNIQUE: Ultrasound of the pelvis is performed using both transabdominal and transvaginal transducers along with Doppler. Transvaginal imaging is performed due to inadequate visualization transabdominally. FINDINGS: Uterus: The uterus is retroverted flexion and measures 12 x 6 x 6 cm. Volume: 197 cc. The double wall endometrial thickness is 4 mm. There is a 1.8 cm hypoechoic lesion within the myometrium of the body of the uterus. Focal calcification in the cervix . Adnexa: The ovaries are identified on the transabdominal approach.. There is flow on color Doppler interrogation to the ovaries. No free fluid in the cul-de-sac. Small nabothian cysts. Right ovary measures 3 x 2 x 2 cm. Volume: 7 cc. Left ovary measures 6 x 5 x 5 cm. Volume: 62 cc. There is a 4.4 cm lobulated anechoic lesion with internal septation. No flow on color Doppler interrogation. Less than 2 cm cystic lesions in the left adnexa. US/US pelvic and transvaginal IMPRESSION: 4.4 cm complex septated cystic lesion left adnexa. No ovarian torsion. 1.8 cm uterine fibroid. Normal endometrial stripe. Electronically signed by: Tera Hastings MD 04/05/2025 12:32 PM EDT
[2025-04-05 09:51] VITALS: BP 124/61; PULSE 77; RESP 18; TEMP 36.8; O2SAT 94; BMI 88.3
--- NOTE | 2025-04-05 10:05 | ED_ITS ---
HPI - Abdominal Pain General Chief Complaint: Abdominal Pain Stated Complaint: Abd Pain, Cyst? Time Seen by Provider: 04/05/25 10:04 Source: patient, RN notes reviewed and old records reviewed Mode of arrival: ambulatory Limitations: no limitations History of Present Illness ED Provider: Julian Pelayo PA-C HPI narrative: 49-year-old female with history of morbid obesity, history of ruptured hemorrhagic cyst (May 2024) complicated by hemoperitoneum, infected hemorrhagic fluid collections and intra-abdominal abscesses, multi-system organ failure, DVT/PE, RAUL who presents to the ER for evaluation of left sided pelvic pain that started yesterday and worsened this morning. She states prior to May she has never had ovarian cyst before. She had repeat imaging in November that showed 1.5 cm cystic structure on the left. She has been followed up by her OBGYN at [facility]. She states her pain now is similar to when it was in May, stabbing pain, now constant in the left pelvic area. It is associated with nausea without vomiting. No fevers or chills. No diarrhea or constipation, no vaginal bleeding or discharge. Her last menstrual period was about 1 month ago, and is very irregular for the last 10 months. She denies any urinary symptoms, flank pain, chest pain, shortness of breath. MD elicited complaint: abdominal pain Pertinent past history: other (Ovarian cysts) Onset (ago): day(s) (1) Pain Consistency: constant Location: pelvis Severity: moderate Pain scale (0-10): 6 Quality: stabbing and aching Radiation: none Migration to: no migration Exacerbating factors: nothing Relieving factors: nothing Context: history of similar episodes Associated symptoms: nausea Related Data Patient : No Home Medications ?Medication ?Instructions ?Recorded ?Confirmed albuterol sulfate 90 mcg/actuation 2 puff inhalation Q 6H PRN 10/17/20 01/15/25 aerosol inhaler clobetasol 0.05 % topical ointment 1 appl topical BID 10/17/20 01/15/25 lisinopril 20 tab PO 10/17/20 01/15/25 mg-hydrochlorothiazide 25 mg tablet montelukast 10 mg tablet 10 mg PO DAILY 10/17/2012/25 (Singulair) apixaban 5 mg tablet (Eliquis) 5 mg PO BID 01/15/25 Previous Rx's ?Medication ?Instructions ?Recorded ondansetron 4 mg disintegrating 4 mg PO Q8H PRN nausea and 04/05/25 tablet vomiting #10 tabs oxycodone 5 mg tablet 5 mg PO Q8H PRN severe pain (scale 04/05/25 score 7-10) #9 tabs Allergies Allergy/AdvReac Type Severity Reaction Status Date / Time shrimp Allergy Severe HIVES Verified 04/05/25 09:57 Review of Systems Review of Systems Yes all other systems are reviewed and are negative [facility] Past Medical History Medical History (Updated 04/05/25 @ 13:09 by JAMES Lucas) DVT (deep venous thrombosis) (~2023) Pulmonary emboli (~2023) HTN (hypertension) Asthma Psoriasis Atopic eczema Surgical History (Updated 01/15/25 @ 15:40 by CARLITA Martinez) H/O exploratory laparotomy (~2023) History of tubal ligation Hx of section Family History Family History Father Asthma Cancer Mother Hypertension Sister Hypertension Brother No problems noted. Son No problems noted. Son ADHD Autism Daughter Asthma Eczema Social History Social History Alcohol intake: current Alcohol intake frequency: a few times a month Alcohol type: wine Patient Tobacco Use Status: Former Tobacco user Use of substances other than those prescribed or required for medical reasons: No Advance Directives: No Advance Directives Information Provided: Yes Patient : No Physical Exam ED Exam Exam: Appearance: Alert. Oriented X3. No acute distress. Head: normocephalic, atraumatic. Eyes: Pupils equal, round and reactive to light. ENT: Pharynx normal. No tonsillar swelling or exudate. Neck: Normal inspection. Neck supple. CVS: Normal heart rate and rhythm. Pulses normal. Respiratory: No respiratory distress. Breath sounds normal. Abdomen: Obese, Soft with moderate tenderness on the left pelvic area. +BS x4. pelvic deferred Skin: Skin warm and dry. Normal skin color. Normal skin turgor. No rashes. Extremities: No lower extremity edema. No joint swelling. Neuro/psych: Oriented X 3. No motor deficit. No sensory deficit. CN II-XII intact. Normal speech and cognition. Vital Signs: Vital Signs - 24 hr 04/05/25 09:51 04/05/25 10:59 04/05/25 15:28 Temperature 98.2 F 98.5 F Pulse Rate 77 75 70 Respiratory Rate 18 16 14 Blood Pressure 124/61 122/57 L 125/62 Pulse Oximetry 94 96 97 Oxygen Delivery Method Room Air Room Air Room Air BMI result Body Mass Index 88.3 Medical Decision Making Medical Decision Making [facility] Narrative: 49-year-old female with history of morbid obesity, history of ruptured hemorrhagic cyst (May 2024) complicated by hemoperitoneum, infected hemorrhagic fluid collections and intra-abdominal abscesses, multi-system organ failure, DVT/PE (now no longer on anticoagulation, s/p IVC filter), RAUL who presents to the ER for evaluation of left sided pelvic pain that started yesterday and worsened this morning. Her history certainly concerning and she is worried about a recurrent episode of this. On arrival to the ER her vital signs are stable. She does not have an acute abdomen. given morphine with some improvement in her pain. Labs are reassuring with a normal hemoglobin and hematocrit, no leukocytosis. When she presented in May she was anemic and had a leukocytosis. Pelvic ultrasound today is showing a 4.4 cm complex left adnexal cyst. No evidence of hemorrhage. results d/w patient. she has made an appointment with her INCOME TAX ANALYST tomorrow c/o ongoing nausea. given 2nd dose IV zofran. feels improved on repeat assessment. stable for d/c home with outpatient follow up. strict return precautions were discussed and patient expressed understanding. Differential Diagnosis Differential Diagnoses: The differential diagnosis associated with the presentation includes Ovarian cyst - simple versus complex versus hemorrhagic, PID, tubo-ovarian abscess, diverticulitis, UTI, kidney stone Admission/Observation Consideration of admission/observation: Escalation of care including admission/observation considered Lab Data [facility] Lab Attestation statement: I reviewed the patient's lab results. Chronically elevated bicarb, no anemia or leukocytosis, 04/05/25 10:52 04/05/25 10:52 Labs: Lab Results 04/05/25 04/05/25 Range/Units 10:52 13:11 WBC 7.0 (4.8-10.8) X10*3/uL RBC 5.02 (4.20-5.50) X10*6/uL Hgb 12.4 (12.0-16.0) g/dl Hct 39.8 (37.0-47.0) % MCV 79.3 L (80.0-98.0) fL MCH 24.7 L (27.0-33.0) pg MCHC 31.2 (31.0-35.0) g/dl RDW 14.6 (11.0-16.0) % Plt Count 245 (160-400) X10*3/uL MPV 9.5 (9.4-12.3) fL Immature Gran % (Auto) 0.1 (0.0-0.4) % Neut % (Auto) 49.7 (45-73) % Lymph % (Auto) 41.4 H (20-40) % Lewis % (Auto) 5.7 (2-11) % Eos % (Auto) 2.7 (0-4) % Baso % (Auto) 0.4 (0-2) % Lymph # (Auto) 2.9 (1.2-4.9) X10*3/uL Lewis # (Auto) 0.4 (0.1-1.2) X10*3/uL Eos # (Auto) 0.2 (0.0-0.4) X10*3/uL Baso # (Auto) 0.0 (0.0-0.2) X10*3/uL Abs Immat Gran (auto) 0.01 (0.00-0.03) X10*3/uL Absolute Neuts (auto) 3.5 (2.0-8.3) x10*3/uL Absolute Nucleated RBC 0.000 (0.0-0.012) X10*3/uL Nucleated RBC % (auto) 0.0 (0.0-0.2) /100WBC Sodium 145 (135-145) mmol/L Potassium 3.8 (3.3-5.1) mmol/L Chloride 103 (96-108) mmol/L Carbon Dioxide 32 H (22-29) mmol/L Anion Gap 14 (12-20) BUN 11 (9-16) mg/dL Creatinine 0.67 (0.5-1.4) mg/dL Estim Creat Clear Calc 186.0 Estimated GFR > 60 Random Glucose 95 (60-115) mg/dL Calcium 9.0 D (8.4-10.2) mg/dL Magnesium 1.6 (1.6-2.6) mg/dL Total Bilirubin 0.3 (0.0-1.0) mg/dL Direct Bilirubin 0.1 (0.0-0.5) mg/dL AST 23 (5-31) U/L ALT 17 (0-31) U/L Alkaline Phosphatase 84 (39-117) U/L Total Protein 7.4 (6.5-8.0) g/dL Albumin 4.4 (3.5-5.0) g/dL Beta HCG, Quant < 2 mIU/mL Urine Color Yellow Urine Appearance Clear Urine pH 6.0 (5.0-9.0) Ur Specific Flasher 1.020 (1.005-1.025) Urine Protein Negative (Neg-Trace) mg/dL Urine Glucose (UA) Negative (Negative) mg/dL Urine Ketones Negative (Negative) mg/dL Urine Blood Negative (Negative) Urine Nitrite Negative (Negative) Ur Leukocyte Esterase Negative (Negative) Independent Interpretation I performed an independent interpretation of an: Ultrasound Interpretation: Large cyst seen on the left side, no evidence of free fluid in the pelvis Radiology Impression Discussion of test interpretation with radiology: I have reviewed the radiologist's reading. External Record Review External record reviewed: Inpatient record, Prior outpatient labs and Prior outpatient radiology Tests considered The following testing was considered but not selected: CT scan of the abdomen was considered however diagnosis was made on pelvic ultrasound Prescription Management I considered prescription management with: Pain Medication and Antibiotic Medications Administered Discontinued Medications Generic Name Dose Route Start Last Admin Trade Name Alon PRN Reason Stop Dose Admin Acetaminophen 975 mg 04/05/25 12:56 04/05/25 13:06 Acetaminophen 325 Mg Tablet PO 04/05/25 12:57 975 mg ONCE ONE Administration Ketorolac Tromethamine 15 mg 04/05/25 12:56 04/05/25 13:06 Ketorolac Tromethamine 15 Mg/Ml Vial IVPUSH 04/05/25 12:57 15 mg ONCE ONE Administration Morphine Sulfate 4 mg 04/05/25 10:15 04/05/25 10:57 Morphine Sulfate 4 Mg/Ml Cartridge IVPUSH 04/05/25 10:16 4 mg ONCE ONE Administration Protocol Ondansetron HCl 4 mg 04/05/25 10:15 04/05/25 10:56 Ondansetron Hcl 4 Mg/2 Ml Vial IVPUSH 04/05/25 10:16 4 mg ONCE ONE Administration Ondansetron HCl 4 mg 04/05/25 14:21 04/05/25 14:29 Ondansetron Hcl 4 Mg/2 Ml Vial IVPUSH 04/05/25 14:22 4 mg ONCE ONE Administration Critical Care Time Critical Care Time Critical Care Time: Yes Total Critical Care Time: 33 Attestation: I have personally provided critical care time exclusive of time spent on separately billable procedures. Time includes review of lab data, prior records, radiology results, discussion with attending physician, and monitoring for potential decompensation after administration of IV narcotics. Intervention performed as documented. Discharge Plan Discharge Clinical Impression: Complex cyst of left ovary Patient Disposition: Home, Self-Care Instructions: Ovarian Cyst (ED) Additional Instructions: Recommend pain control and follow-up with OBGYN Take extra strength tylenol 1000 mg every 6-8 hours Take the prescribed oxycodone as needed for severe pain only Call your INCOME TAX ANALYST for follow up. If you develop new or worsening symptoms call 911 or come back to the ER for further evaluation. CLINICAL INFORMATION: Pelvic pain. History of cysts. COMPARISON: November 25, 2024. Correlated to CT abdomen and pelvis dated November 25, 2024. TECHNIQUE: Ultrasound of the pelvis is performed using both transabdominal and transvaginal transducers along with Doppler. Transvaginal imaging is performed due to inadequate visualization transabdominally. FINDINGS: Uterus: The uterus is retroverted flexion and measures 12 x 6 x 6 cm. Volume: 197 cc. The double wall endometrial thickness is 4 mm. There is a 1.8 cm hypoechoic lesion within the myometrium of the body of the uterus. Focal calcification in the cervix . Adnexa: The ovaries are identified on the transabdominal approach.. There is flow on color Doppler interrogation to the ovaries. No free fluid in the cul-de-sac. Small nabothian cysts. Right ovary measures 3 x 2 x 2 cm. Volume: 7 cc. Left ovary measures 6 x 5 x 5 cm. Volume: 62 cc. There is a 4.4 cm lobulated anechoic lesion with internal septation. No flow on color Doppler interrogation. Less than 2 cm cystic lesions in the left adnexa. US/US pelvic and transvaginal IMPRESSION: 4.4 cm complex septated cystic lesion left adnexa. No ovarian torsion. 1.8 cm uterine fibroid. Normal endometrial stripe. Prescriptions: New oxycodone 5 mg tablet 5 mg PO Q8H PRN (Reason: severe pain (scale score 7-10)) Qty: 9 0RF Rx Instructions: Partial Fill upon patient request. ondansetron 4 mg tablet,disintegrating 4 mg PO Q8H PRN (Reason: nausea and vomiting) Qty: 10 0RF No Action albuterol sulfate 90 mcg/actuation HFA aerosol inhaler 2 puff inhalation Q6H PRN montelukast [Singulair] 10 mg tablet 10 mg PO DAILY lisinopril-hydrochlorothiazide 20-25 mg tablet PO clobetasol 0.05 % ointment 1 appl topical BID Eliquis 5 mg tablet 5 mg PO BID Referrals: Daylin Ruth MD [Primary Care Provider, Internal Medicine] Stand Alone Forms: Work/School Release Print Language: Canadian
--- OUTSIDE RECORDS SUMMARY | 2025-04-05 10:46 | XMS_ITS | Clinical Summary ---
Author Organization [facility] Address [address] [place] [address] Phone Care Team Providers Care Yeast Pumper Name Role Phone Daylin Ruth MD Primary Care Provider [phone] Allergies Active Allergy Reactions Criticality Noted Date [...] Cervical Cancer Screening: P ap Smear 1998 Colorectal Cancer Screening: Colonoscopy 07/29/2022 HIV Screening 07/29/2022 Hepatitis C Screening 07/29/2022 Social Influencers of Health Screening 07/29/2022 COVID-19 Vaccine (2023-2 5 season) 2024 Depression Screening 08/26/2024 Influenza Vaccine (#1) 2025 HIB Vaccines Aged Out No longer [...] age to complete this topic Meningococcal B Vaccine Aged Out No l onger eligible based on patient's age to complete this topic Pneumococcal Vaccine: Pediat rics (0 to 5 Years) and At-Risk Patients (6 to 49 Years) Aged Out No longer eligible b ased on patient's age to complete this topic RSV Immunization Patients Un kaykay 20 months Aged Out No longer eligible b ased on patient's age to complete this topic Varicella Vaccines Aged Out No longer eligible based on patient's age to complete this topic Insurance [facility] [address] [place] [address] MEDICAID - [place] Care Teams Yeast Pumper Relationship Specialty Start Date End Date Daylin Ruth MD [address] [facility] [address] [place] MD PCP - General Internal Medicine 05/20/17
--- OUTSIDE RECORDS SUMMARY | 2025-04-05 10:46 | XMS_ITS | Encounter Summary ---
Author Organization [facility] Address [address] [place] [address] Phone Care Team Providers Care Flight Data Technician Name Role Phone Hetal Valencia MD Primary Care Provider [phone] Encounter Details Date Type Department Care Team (Late st Contact Info) Description 11/24/2012 Documentation EM Family Medicine [address] [place] [address] Family Medicine, Physician [address] [place], [place] [id number] Social History Tobacco Use Types Packs/Day Years [...] on filedocumented in this encounter Care Teams Flight Data Technician Relationship Specialty Start Date End Date Hetal Valencia MD [address] [place] [address] MIKAYLA Alonso [address] PCP - General 04/05/17 documented as of this encounter
--- OUTSIDE RECORDS SUMMARY | 2025-04-05 10:46 | XMS_ITS | Patient Health Record ---
Author Organization [facility] Address [address] [place] [address] Care Team Providers Care Tellers Supervisor Name Role Phone Faraz Daylin Primary Care Provider UnavailQuique Rincon Unavailable [phone] Allergies Allergen (clinical drug ingredient) Drug/Non Drug Allergy documented on EMR Reaction Allergy Type Onset Date Status shrimp allergenic extract Shrimp (Diagnostic) Unknown Drug Allergy Active Reason For Referral No Information Medications Medication SIG (Take, Route, Frequency, Duration) Notes Start Date End Date Status Montelukast Sodium 10 MG 1 tablet Orally Once a day Active Lisinopril 20 MG 1 tablet Orally Once a day Active Albuterol Sulfate HFA 108 (90 Base) MCG/ACT 1 puff as needed Inhalation every 4 hrs Active Immunizations Vaccine Route Administration Date Status Comme nts Influenza Unknown 03/19/2025 Refused Social History Tobacco Use: Social History Observation Description Date Details (start date - stop date) Never Smoker NA - NA Tobacco Control (Standard) Question Answer Notes Tobacco use: Nonsmoker AUDIT-C (Standard) Question Answer Notes Did you have a drink contain ing alcohol in the past year? Yes How often did you have a dri nk containing alcohol in the past year? Monthly or less (1 point) How many drinks did you have on a typical day when you were drinking in the past year? 1 or 2 drinks (0 point) How often did you have six o r more drinks on one occasion in the past year? Never (0 point) Points 1 Interpretation Negative Section Notes: Occ alcohol, nonsmoker Problems Problem Type SNOMED Code ICD Code Onset Dates Problem Status W/U Status Risk Notes Problem Colon cancer screening (450849212) Colon cancer screening (Z12.11) Active confirmed Problem Constipation (K59.00) Active confirmed Vital Signs Temperature 97.8 degrees Fahrenheit 03/19/2025 Blood pressure diastolic 01 mm Hg 03/19/2025 Height 61 in 03/19/2025 Blood pressure systolic 001 mm Hg 03/19/2025 Weight 270.2 lbs 03/19/2025 BMI 51.05 kg/m2 03/19/2025 Procedures Procedure Date Ordered Date Performed Result Body Sit e COLONOSCOPY 03/19/2025 N/A Encounters Encounter Location Date Provider Diagnosis [facility] [address] [place] [address] 03/19/2025 Quique Garcia Constipation K59.00 and Colon cancer screening Z12.11 [facility] [address] [place] [address] 05/19/2024 Quique Garcia Assessments Encounter Date Diagnosis (ICD Code) Assessment Notes Treatment Notes Treatment Clinical Notes Section Notes 03/19/2025 Colon cancer screening (ICD-10 - Z12.11) Overall, Klarissa appears quite well considering her complicated hospitalization last year. At this point she seems to have recovered nicely. We did review the importance of attempting to continue her weight loss with good diet and some exercise. Given that she has never had a colonoscopy I did recommend a screening colonoscopy at some point later this year. We did review the rationale for that in regard to colon cancer prevention. Full consent has been taken for this, including risks of bleeding and perforation. The procedure will be done with monitored anesthesia care. We did advise her to let us know if she has a change in her medical regimen, and specifically advised her to let us know if she begins taking any GLP-1 injections for weight loss as we would have to be sure she stops that at least 7 days before the procedure. In regard to her constipation this does not seem overly problematic. However I did recommend that she use a stool softener such as Colace or MiraLAX on a daily and regular basis so as to avoid any constipation with its resultant discomfort and abdominal cramps. I did advise her to try to avoid laxatives. We did review that staying on a healthy and high-fiber diet with plenty of fruits and vegetables, as well as fluids, would help with this as well. Klarissa was comfortable with this plan. Thank you again for allowing me to participate in Klarissa's care. I shall continue to keep you advised of her progress. 03/19/2025 Constipation (ICD-10 - K59.00) Stay on a daily Colace stool softener or Miralax daily to help prevent constipation . Try to avoid laxatives. Overall, Klarissa appears quite well considering her complicated hospitalization last year. At this point she seems to have recovered nicely. We did review the importance of attempting to continue her weight loss with good diet and some exercise. Given that she has never had a colonoscopy I did recommend a screening colonoscopy at some point later this year. We did review the rationale for that in regard to colon cancer prevention. Full consent has been taken for this, including risks of bleeding and perforation. The procedure will be done with monitored anesthesia care. We did advise her to let us know if she has a change in her medical regimen, and specifically advised her to let us know if she begins taking any GLP-1 injections for weight loss as we would have to be sure she stops that at least 7 days before the procedure. In regard to her constipation this does not seem overly problematic. However I did recommend that she use a stool softener such as Colace or MiraLAX on a daily and regular basis so as to avoid any constipation with its resultant discomfort and abdominal cramps. I did advise her to try to avoid laxatives. We did review that staying on a healthy and high-fiber diet with plenty of fruits and vegetables, as well as fluids, would help with this as well. Klarissa was comfortable with this plan. Thank you again for allowing me to participate in Klarissa's care. I shall continue to keep you advised of her progress. Plan Of Treatment Pending Test Test Name Order Date COLONOSCOPY 03/19/2025 Next Appt Details Provider Name:Quique Mckeon Jose , 06/28/2025 12:30:00 PM, [address] [place] [address] , [place], [place], [phone], Insurance Providers Payer Name Payer Address Payer Phone Subscriber Number Group Number Insured Name Patient Relationship to Insured Coverage Start Date Coverage End Date [facility] [address] [place] [phone] [id number] CHELSEA KLARISSA Self - patient is the insured Medical (General) History Medical History History ICD Code Asthma Hypertension Psoriasis/ecezema Denies [place],DM,CVA,renal disease 4 month hospitalization in [facility]-She was at [facility] initially for a ruptured ovarian cyst with some hemoperitoneum. She underwent a laparoscopy for evaluation. She subsequently developed an ileus and then had multiple complications including DVT's with pulmonary emboli requiring an IVC filter and course of anticoagulation with Eliquis, intra-abdominal abscesses and need for exploratory laparotomy with lysis of adhesions, CT drainage of abscesses by interventional radiology Surgical History Surgery Date(Month/Year) Surgeries as above at [facility] during her prolonged hospitalization in 2023 she underwent a diagnostic laparoscopy, subsequent exploratory laparotomy with lysis of adhesions, and multiple CT drainages of abscesses by interventional radiology C-sections x 3 Tubal ligation
--- OUTSIDE RECORDS SUMMARY | 2025-04-05 10:46 | XMS_ITS | Encounter Summary ---
Author Organization [facility] Address [address] [facility] [address] [place] [address] Phone Care Team Providers Care Photoengraving Etcher Apprentice Name Role Phone Ro Hernandez MD Primary Care Provider [phone] Daylin Ruth MD Primary Care Provider Encounter Details Date Type Department Care Team (Late st Contact Info) Description 08/03/2024 Transcribe Orders [facility] Specimen Processing [address] [place] [address] Ro Hernandez MD [address] [place] [phone] [email or web address] Social History Tobacco Use Types Packs/Day Years Used Date Smoking Tobacco: Never Assessed Education Answer Date Recorded Are you interested in more education? Not on nancy e 08/03/2024 Are you concerned about learning? Not on file 08/03/2024 No 08/03/2024 No 08/03/2024 Digital Access Answer Date Recorded No 08/03/2024 No 08/03/2024 Reliable internet access at home? Not on file 08/03/2024 Device with a working camera? Not on file Comments Unknown Sex and Gender Information Value Date Recorded Sex Assigned at Not on file Legal Sex Female 10:50 AM EST Gender Identity Not on file Sexual Orientation Not on file documented as of this encounter Plan of Treatment Not on file documented as of this encounter Visit Diagnoses Not on filedocumented in this encounter Care Teams Photoengraving Etcher Apprentice Relationship Specialty Start Date End Date Ro Hernandez MD [address] [place] [phone] [email or web address] PCP - General Internal Medicine 08/03/24 08/05/24 Daylin Ruth MD [address] [place] [address] [place] [phone] PCP - General Internal Medicine 08/06/24 documented as of this encounter Additional Source Comments The information contained in this document represents components of the legal health record. It is not the complete legal health record.[facility]
[2025-04-05 10:55] LABS: MANUAL DIFF FLAG NO
[2025-04-05 10:59] VITALS: BP 122/57; PULSE 75; RESP 16; O2SAT 96
[2025-04-05 11:00] LABS: Hematocrit 39.8 % (37.0-47.0); Hemoglobin 12.4 g/dl (12.0-16.0); Imm Gran Abs Auto 0.01 X10*3/uL (0.00-0.03); Imm Gran Pct Auto 0.1 % (0.0-0.4); Lymphocytes Absolute Auto 2.9 X10*3/uL (1.2-4.9); Mean Corpuscular HGB Conc 31.2 g/dl (31.0-35.0); Mean Corpuscular Hemoglobin 24.7 pg (27.0-33.0); Mean Corpuscular Volume 79.3 fL (80.0-98.0); NRBC Abs Auto 0.000 X10*3/uL (0.0-0.012); NRBC Pct Auto 0.0 /100WBC (0.0-0.2); Platelet Count 245 X10*3/uL (160-400); Red Blood Count 5.02 X10*6/uL (4.20-5.50); White Blood Count 7.0 X10*3/uL (4.8-10.8)
[2025-04-05 11:20] LABS: Alanine Aminotransferase 17 U/L (0-31); Albumin Level 4.4 g/dL (3.5-5.0); Alkaline Phosphatase 84 U/L (39-117); Anion Gap 14 (12-20); Aspartate Amino Transferase 23 U/L (5-31); Blood Urea Nitrogen 11 mg/dL (9-16); Calcium 9.0 mg/dL (8.4-10.2); Carbon Dioxide 32 mmol/L (22-29); Chloride 103 mmol/L (96-108); Creatinine Clr Calc Pharmacy 186.0; Estimated Glomerular Filt Rate > 60; Magnesium 1.6 mg/dL (1.6-2.6); Potassium 3.8 mmol/L (3.3-5.1); Sodium 145 mmol/L (135-145); Total Protein 7.4 g/dL (6.5-8.0)
[2025-04-05 13:19] LABS: Appearance Urine Clear; Glucose Urine UA Negative (Negative); PH 6.0 (5.0-9.0); Specific Gravity - Urine 1.020 (1.005-1.025)
[2025-04-05 15:28] VITALS: BP 125/62; PULSE 70; RESP 14; TEMP 36.9; O2SAT 97
[2025-04-05 15:50] VITALS: BP 125/62; PULSE 70; RESP 14; TEMP 36.9; O2SAT 97
== END 2025-04-05 15:51 | disposition home or self-care (01) ==
PROVIDERS: Physician Assistant; Emergency Provider Emergency Medicine; PCP Internal Medicine
DX: N83.202 Unspecified ovarian cyst, left side (principal); R11.0 Nausea; E66.01 Morbid (severe) obesity due to excess calories; Z68.45 Body mass index [BMI] 70 or greater, adult
CPT/HCPCS: 36415; 76830; 76856; 80048; 80076; 81003; 83735; 84702; 85025; 93975; 96374; 96375; 96376; 99284; J1885; J2270; J2405

== ENCOUNTER → 2025-04-05 10:05 | Outpatient (BNV) | payer OTHER, SELFPAY | PROVIDERS: Emergency Provider Emergency Medicine; PCP Internal Medicine; Visit Provider Radiology Diagnostic Radiology | DX: R10.2 Pelvic and perineal pain (principal); Z87.42 Personal history of other diseases of the female genital tract | CPT/HCPCS: 76830; 76856; 93975 ==

== ENCOUNTER 2025-07-08 10:06 | Outpatient (REF) | payer OTHER, SELFPAY ==
--- OUTSIDE RECORDS SUMMARY | 2024-05-19 05:10 | XMS_ITS ---
Author Organization [facility] Address [address] [place] [id number] Care Team Providers Care Cutting Machine Fixer Name Role Phone Daylin Ruth Primary Care Provider Unavailab Quique Zaragoza [phone] REASON FOR VISIT Patient presents today for iron def anemia Encounters Encounter Location Date Provider Diagnosis [facility] [address] [place] [id number] 05/19/2024 Quique Garcia Plan Of Treatment No Information Progress Notes * ARIEL TRANIDADOB:[birth year] (49 yo F)Acc No.[id number]:05/19/2024 Progress Notes Patient: DALTON LUNDBERG Provider: Selena Garcia MD :1975 A ge:48 Y S ex:Female Date:05/19/2024 Address:[address] [place], [place] [id number] Pcp:Daylin Ruth Subjective: * Chief Complaints: * 1 . Patient presents today for iron def anemia. * Medical History: Objective: * Vitals: Assessment: Plan: * Treatment: * * The named appointment provid er may or may not be the originator of this progress note, and it is not deemed complete until electronically signed by the appointment provider. Sign off status: Pending * Provider: Selena Garcia MD Date: 0 05/19/2024 Generated for Rosa barron/Salima/eTransmitting on: 09/07/2024 12:08 PM EST
--- OUTSIDE RECORDS SUMMARY | 2025-06-28 06:30 | XMS_ITS ---
Author Organization [facility] Address [address] [place] [address] Care Team Providers Care Trolley Operator Name Role Phone Daylin Ruth Primary Care Provider Unavailab Quique Zaragoza [phone] REASON FOR VISIT screening colon Encounters Encounter Location Date Provider Diagnosis [facility] [address] [place] [phone] 06/28/2025 Quique Garcia Plan Of Treatment No Information Progress Notes * ARIEL TRANIDADOB:[birth year] (49 yo F)Acc No.[id number]:06/28/2025 COLON WITH MAC Patient: DALTON LUNDBERG Provider: Selena Garcia MD :1975 A ge:49 Y S ex:Female Date:06/28/2025 Address:[address] [place], [place] [phone] Pcp:Daylin Ruth Subjective: * Chief Complaints: * 1 . Screening colon. * Medical History: Objective: * Vitals: Assessment: Plan: * Treatment: * * The named appointment provid er may or may not be the originator of this progress note, and it is not deemed complete until electronically signed by the appointment provider. Sign off status: Pending * Provider: Selena Garcia MD Date: 08/28/2024 Generated for Rosa barron/Salima/Jarrellitting on: 09/07/2024 12:08 PM EST
[2025-07-08 11:26] LABS: Microalbum/Creatinine Ratio Ur 18.2 ug/mg cr (<30)
[2025-07-08 11:48] LABS: Alanine Aminotransferase 15 U/L (0-31); Albumin Level 4.6 g/dL (3.5-5.0); Alkaline Phosphatase 81 U/L (39-117); Anion Gap 11 (12-20); Aspartate Amino Transferase 22 U/L (5-31); Blood Urea Nitrogen 14 mg/dL (9-16); Calcium 9.4 mg/dL (8.4-10.2); Carbon Dioxide 29 mmol/L (22-29); Chloride 100 mmol/L (96-108); Cholesterol 175 mg/dL (<200); Estimated Glomerular Filt Rate > 60; HDL Cholesterol 59 mg/dL (>40); Potassium 3.4 mmol/L (3.3-5.1); Sodium 137 mmol/L (135-145); Total Protein 7.7 g/dL (6.5-8.0); Triglycerides 84 mg/dL (<150)
[2025-07-08 12:04] LABS: Thyroid Stimulating Hormone 2.27 uIU/mL (0.32-4.0)
--- OUTSIDE RECORDS SUMMARY | 2025-07-08 12:08 | XMS_ITS | Encounter Summary ---
Author Organization [facility] Address [address] [place] [address] Phone Care Team Providers Care Disintegrator Feeder Name Role Phone Hetal Valencia MD Primary Care Provider [phone] Encounter Details Date Type Department Care Team (Late st Contact Info) Description 11/24/2012 Documentation EM Family Medicine [address] [place] [address] Family Medicine, Physician [address] [place], [place] [phone] Social History Tobacco Use Types Packs/Day Years [...] on filedocumented in this encounter Care Teams Disintegrator Feeder Relationship Specialty Start Date End Date Hetal Valencia MD [address] [place] [address] MIKAYLA Alonso [address] PCP - General 04/05/17 documented as of this encounter
--- OUTSIDE RECORDS SUMMARY | 2025-07-08 12:08 | XMS_ITS | Clinical Summary ---
Author Organization [facility] Address [address] [place] [address] Phone Care Team Providers Care Skeiner Name Role Phone Hetal Valencia MD Primary Care Provider [phone] Immunizations Immunization Administration Dates Next Due MMR [...] 19+ 3-dose series) 1996 Influenza Vaccines (#1) 2025 COVID-19 Vaccine ( - 2024-2 6 season) 2025 MMR Vaccines Completed 05/18/1991 HIB Vaccines Aged [...] age to complete this topic Care Teams Skeiner Relationship Specialty Start Date End Date Hetal Valencia MD [address] [place] [address] MIKAYLA Alonso [address] PCP - General 04/05/17
--- OUTSIDE RECORDS SUMMARY | 2025-07-08 12:08 | XMS_ITS | Patient Health Record ---
Author Organization [facility] Address [address] [place] [address] Care Team Providers Care Melting Operator Name Role Phone Faraz Daylin Primary Care Provider UnavailQuique Rincon Unavailable [phone] Allergies Allergen (clinical drug ingredient) Drug/Non Drug [...] Status Risk Notes Problem Colon cancer screening (622999202) Colon cancer screening (Z12.11) Active confirmed Problem Constipation (16174603) Constipation (K59.00) Active confirmed Vital Signs Temperature 97.8 degrees Fahrenheit 03/19/2025 Blood pressure diastolic 01 mm Hg 03/19/2025 Height 61 in 03/19/2025 Blood pressure systolic 001 mm Hg 03/19/2025 Weight 270.2 lbs 03/19/2025 BMI 51.05 kg/m2 03/19/2025 Procedures Procedure Date Ordered Date Performed Result Body Sit e COLONOSCOPY 03/19/2025 N/A Encounters Encounter Location Date Provider Diagnosis [facility] [address] [place] [address] 03/19/2025 Quique Garcia Constipation K59.00 and Colon cancer screening Z12.11 [facility] [address] [place] [address] 06/28/2025 Quique Garcia Assessments Encounter Date Diagnosis (ICD [...] Test Test Name Order Date COLONOSCOPY 03/19/2025 Insurance Providers Payer Name Payer Address Payer Phone Subscriber Number Group Number Insured Name Patient Relationship to Insured Coverage Start Date Coverage End Date [facility] [address] [place] [phone] [id number] KLARISSA TRAN Self - patient is the insured Medical (General) History Medical History History ICD Code Asthma Hypertension Psoriasis/ecezema Denies [place],DM,CVA,renal disease 4 month hospitalization in [facility]-She was at [facility] initially for a ruptured ovarian cyst with [...] History Surgery Date(Month/Year) Surgeries as above at [facility] during her prolonged hospitalization in 2023 she underwent a diagnostic laparoscopy, subsequent exploratory laparotomy with lysis of adhesions, and multiple CT drainages of abscesses by interventional radiology C-sections x 3 Tubal ligation
--- OUTSIDE RECORDS SUMMARY | 2025-07-08 12:08 | XMS_ITS | Clinical Summary ---
Author Organization [facility] Address [address] [place] [address] Phone Care Team Providers Care Data Security Administrator Name Role Phone Daylin Ruth MD Primary Care Provider [phone] Allergies Active Allergy Reactions Criticality Noted Date [...] Last Done Comments Breast Cancer Screening 1977 Colorectal Cancer Screening: Colonoscopy 1977 Diabetes: Annual GFR (Glomerular Filtration Rate) 1977 Diabetes: Annual Foot Exam 1987 Diabetes: Annual Retina Eye Exam 1987 Hepatitis B Vaccines (1 of 3 - 19+ 3-dose series) 1996 Pneumococcal Vaccine: Pediatrics (0 to 5 Years) and At-Risk Patients (6 to 49 Years) (1 of 2 - PCV) 1996 Cervical Cancer Screening: P ap Smear 1998 DTaP,Tdap,and Td Vaccines (2 - Td or Tdap) 10/04/2003 10/04/1993 Cholesterol Screening (Lipid Panel) 07/29/2022 HIV Screening 07/29/2022 Hepatitis C Screening 07/29/2022 Social Influencers of Health Screening 07/29/2022 Depression Screening 08/26/2024 COVID-19 Vaccine (4 - 2024-2 6 season) 2025 12/28/2021, 09/12/2021, 08/22/2021 Influenza Vaccine (#1) 2025 Diabetes: Annual Urine Albumin-Creatinine Ratio (uACR) 06/23/2025 Diabetes: Blood Sugar Contro l Test (HGBA1C) 06/23/2025 Hypertension/CHF/CAD Annual BMP Blood Test 06/23/2025 RSV Immunization Adult Patients (1 - 1-dose 75+ series) 2052 MMR Vaccines Completed 05/18/1991 HIB Vaccines Aged [...] to complete this topic RSV Immunization Patients Under 20 months Aged Out No longer eligible b ased on patient's age to complete this topic Varicella Vaccines Aged Out No longer eligible based on patient's age to complete [place] [id number] [facility] MEDICAID - [place] Care Teams Data Security Administrator Relationship Specialty Start Date End Date Daylin Ruth MD [address] [facility] [address] [place], [place] PCP - General Internal Medicine 05/20/17
--- OUTSIDE RECORDS SUMMARY | 2025-07-08 12:08 | XMS_ITS | Clinical Summary ---
Author Organization [facility] Address [address] [facility] [address] [place] [address] Phone Care Team Providers Care Radio Producer Name Role Phone Daylin Ruth MD Primary Care Provider Social History Tobacco Use Types Packs/Day Years [...] Orientation Not on file Plan of Treatment Not on file Medical Devices Not on file [facility] [address] [facility] Address: [id number] [place], [place] [address] [address] [facility] Address: [id number] [place], [place] [address] MIKAYLA HOOK [id number] Care Teams Radio Producer Relationship Specialty Start Date End Date Daylin Ruth MD [address] [place] [address] [place] [address] PCP - General Internal Medicine 08/06/24 Additional Source Comments The information contained in this document represents components of the legal health record. It is not the complete legal health record.[facility]
--- OUTSIDE RECORDS SUMMARY | 2025-07-08 12:08 | XMS_ITS | Encounter Summary ---
Author Organization [facility] Address [address] [facility] [address] [place] [address] Phone Care Team Providers Care Dry Cleaner Presser Name Role Phone Ro Hernandez MD Primary Care Provider [phone] Daylin Ruth MD Primary Care Provider Encounter Details Date Type Department Care Team (Late st Contact Info) Description 08/03/2024 Transcribe Orders [facility] Specimen Processing [address] [place] [address] Ro Hernandez MD [address] [place] [phone] [email or web address] Social History Tobacco Use Types Packs/Day Years [...] on filedocumented in this encounter Care Teams Dry Cleaner Presser Relationship Specialty Start Date End Date Ro Hernandez MD [address] [place] [phone] [email or web address] PCP - General Internal Medicine 08/03/24 08/05/24 Daylin Ruth MD [address] [place] [address] [place] [phone] PCP - General Internal Medicine 08/06/24 documented as of this encounter Additional Source Comments The information contained in this document represents components of the legal health record. It is not the complete legal health record.[facility]
--- OUTSIDE RECORDS SUMMARY | 2025-07-08 12:08 | XMS_ITS | Encounter Summary ---
Author Organization [facility] Address [address] [place] [id number] Phone Care Team Providers Care Traffic Agent Name Role Phone Hetal Valencia MD Primary Care Provider [phone] Encounter Details Date Type Department Care Team (Late st Contact Info) Description 11/24/2012 Documentation EM Family Medicine [address] [place] [address] Family Medicine, Physician [address] [place], [place] [phone] Social History Tobacco Use Types Packs/Day Years [...] on filedocumented in this encounter Care Teams Traffic Agent Relationship Specialty Start Date End Date Hetal Valencia MD [address] [place] [address] MIKAYLA Alonso [phone] PCP - General 04/05/17 documented as of this encounter
--- OUTSIDE RECORDS SUMMARY | 2025-07-08 12:08 | XMS_ITS | Encounter Summary ---
Author Organization [facility] Address [address] [place] [address] Phone Care Team Providers Care Forklift Wheel Loader Name Role Phone Hetal Valencia MD Primary Care Provider [phone] Encounter Details Date Type Department Care Team (Late st Contact Info) Description 11/24/2012 Documentation EM Family Medicine [address] [place] [address] Family Medicine, Physician [address] [place], [place] [phone] Social History Tobacco Use Types Packs/Day Years [...] on filedocumented in this encounter Care Teams Forklift Wheel Loader Relationship Specialty Start Date End Date Hetal Valencia MD [address] [place] [address] MIKAYLA Alonso [phone] PCP - General 04/05/17 documented as of this encounter
--- OUTSIDE RECORDS SUMMARY | 2025-07-08 12:08 | XMS_ITS | Encounter Summary ---
Author Organization [facility] Address [address] [place] [address] Phone Care Team Providers Care Manufacturing Electrician Name Role Phone Hetal Valencia MD Primary Care Provider [phone] Encounter Details Date Type Department Care Team (Late st Contact Info) Description 11/24/2012 Documentation EM Family Medicine [address] [place] [address] Family Medicine, Physician [address] [place], [place] [phone] Social History Tobacco Use Types Packs/Day Years [...] on filedocumented in this encounter Care Teams Manufacturing Electrician Relationship Specialty Start Date End Date Hetal Valencia MD [address] [place] [address] MIKAYLA Alonso [address] PCP - General 04/05/17 documented as of this encounter
--- OUTSIDE RECORDS SUMMARY | 2025-07-08 12:08 | XMS_ITS | Encounter Summary ---
Author Organization [facility] Address [address] [place] [address] Phone Care Team Providers Care Phosphatic Fertilizer Supervisor Name Role Phone Hetal Valencia MD Primary Care Provider [phone] Encounter Details Date Type Department Care Team (Late st Contact Info) Description 11/24/2012 Documentation EM Family Medicine [address] [place] [address] Family Medicine, Physician [address] [place], [place] [phone] Social History Tobacco Use Types Packs/Day Years [...] on filedocumented in this encounter Care Teams Phosphatic Fertilizer Supervisor Relationship Specialty Start Date End Date Hetal Valencia MD [address] [place] [address] MIKAYLA Alonso [address] PCP - General 04/05/17 documented as of this encounter
--- OUTSIDE RECORDS SUMMARY | 2025-07-08 12:09 | XMS_ITS | Encounter Summary ---
Author Organization [facility] Address [address] [place] [address] Phone Care Team Providers Care Marketing Production Specialist Name Role Phone Hetal Valencia MD Primary Care Provider [phone] Encounter Details Date Type Department Care Team (Late st Contact Info) Description 11/24/2012 Documentation EM Family Medicine [address] [place] [address] Family Medicine, Physician [address] [place], [place] [phone] Social History Tobacco Use Types Packs/Day Years [...] on filedocumented in this encounter Care Teams Marketing Production Specialist Relationship Specialty Start Date End Date Hetal Valencia MD [address] [place] [address] MIKAYLA Alonso [phone] PCP - General 04/05/17 documented as of this encounter
--- OUTSIDE RECORDS SUMMARY | 2025-07-08 12:09 | XMS_ITS | Encounter Summary ---
Author Organization [facility] Address [address] [place] [phone] Phone Care Team Providers Care Filament Shaper Name Role Phone Hetal Valencia MD Primary Care Provider [phone] Encounter Details Date Type Department Care Team (Late st Contact Info) Description 11/24/2012 Documentation EM Family Medicine [address] [place] [address] Family Medicine, Physician [address] [place], [place] [phone] Social History Tobacco Use Types Packs/Day Years [...] on filedocumented in this encounter Care Teams Filament Shaper Relationship Specialty Start Date End Date Hetal Valencia MD [address] [place] [address] MIKAYLA Alonso [address] PCP - General 04/05/17 documented as of this encounter
--- OUTSIDE RECORDS SUMMARY | 2025-07-08 12:09 | XMS_ITS | Patient Health Record ---
Author Organization [facility] Address [address] [facility] [place] [address] Care Team Providers Care Generator Worker Name Role Phone Daylin Ruth Primary Care Provider Unavailab Irasema Hayden Unavailable [phone] Allergies Allergen (clinical drug ingredient) Drug/Non Drug Allergy documented on EMR Reaction Allergy Type Onset Date Status shrimp allergenic extract Shrimp (Diagnostic) Unknown Drug Allergy Active Reason For Referral No Information Medications Medication SIG (Take, Route, Frequency, Duration) Notes Start Date End Date Status Vitamin A Not-Taking Vitamin B Complex No t-Taking Feldene 20 MG 1 capsule with food Orally Once a day; Duration: 30 day(s) 10/23/2023 Active Albuterol Active Lisinopril Active Ciclopirox Olamine 0.77 % 1 application Externally Twice a day; Duration: 30 days Active Singulair Active Social History [...] W/U Status Risk Notes Problem Interstitial myositis (39512805) Interstitial myositis of right foot (M60.171) Active confirmed Plan Of Treatment Pending Test Test Name Order Date X ray : Foot, right 3V 10/23/2023 Insurance Providers Payer Name Payer Address Payer Phone Subscriber Number Group Number Insured Name Patient Relationship to Insured Coverage Start Date Coverage End Date [facility] [address] [place] [address] [id number] Klarissa Gomez Self - patient is the insured Medical (General) History Medical History History ICD Code asthma Back,Hip,and Knee pain Depression High blood pressure Poor circulation Psoriasis/eczema Sciatica Chicken pox Surgical History Surgery Date(Month/Year)
== END 2025-07-08 10:07 | disposition home or self-care (01) ==
LOC: HO.LAB 10:06
PROVIDERS: PCP Internal Medicine; Visit Provider Internal Medicine
DX: I10 Essential (primary) hypertension (principal); E66.01 Morbid (severe) obesity due to excess calories; E78.00 Pure hypercholesterolemia, unspecified; R73.01 Impaired fasting glucose; Z68.42 Body mass index [BMI] 45.0-49.9, adult
CPT/HCPCS: 36415; 80053; 80061; 82043; 82570; 83036; 84443